=== PATIENT | female | born 1960 | race Caucasian/White ===

== ENCOUNTER 2023-04-09 08:50 | Emergency (ER) | payer OTHER, BC, SELFPAY ==
--- NOTE | ~2023-04-09 | XR_ITS ---
EXAMINATION: XR shoulder LT min 2V INDICATION: Left shoulder pain TECHNIQUE: Four views of the left shoulder are submitted. COMPARISON: None FINDINGS: Normal alignment. No fracture. There is moderate osteoarthritis of the acromioclavicular an d glenohumeral joints. Soft tissues are unremarkable. IMPRESSION: 1. No acute osseous abnormality. Reviewed, dictated and finalized at location B.
[2023-04-09 09:05] VITALS: BP 108/64; PULSE 79; RESP 18; TEMP 36.7; O2SAT 98
--- NOTE | 2023-04-09 09:17 | ED.UPPEXIN ---
HPI - Extremity Injury (Upper) General Chief Complaint: Extremity Injury, Upper Stated Complaint: Lt Shoulder Pain Time Seen by Provider: 04/09/23 09:18 Source: patient, family, RN notes reviewed and old records reviewed Mode of arrival: ambulatory Limitations: no limitations History of Present Illness HPI narrative: 62-year-old female accompanied by daughter with complaints of walking in [place] work and she fell injuring her left shoulder yesterday. Patient has decreased range of motion to her left shoulder and arm with pain with attempted movement of left arm. Patient reports that she has used ice to her left shoulder and also has taken some Ibuprofen for her discomfort. Patient reports no tingling or numbness to her left arm or hand, strong radial and brachial pulse to left arm. MD complaint: injury to: left and shoulder Onset (ago): day(s) (occurred yesterday) Severity scale (1-10): 6 Treatments prior to arrival: cold therapy and NSAIDS Related Data Allergies Allergy/AdvReac Type Severity Reaction Status Date / Time No Known Allergies Allergy Verified 04/09/23 09:09 Review of Systems Review of Systems: CONSTITUTIONAL: Denies fever, chills, or sweats. EYES: Denies visual changes, redness, or discharge. ENT: Denies rhinorrhea, congestion, sore throat, or otalgia. CARDIOVASCULAR: Denies chest pain, palpitations, or edema. RESPIRATORY: Denies cough or dyspnea. GASTROINTESTINAL: Denies abdominal pain, nausea, vomiting, or diarrhea. GENITOURINARY: Denies dysuria or hematuria. SKIN: Denies rash or itching. MUSCULOSKELETAL: Denies back pain,positive for left shoulder joint pain, or myalgia. NEUROLOGIC: Denies headache, numbness, or weakness. PSYCHIATRIC: Denies anxiety or depression. All systems reviewed & are unremarkable except as noted in HPI and below PMFSH Past Medical History Medical History (Updated 04/10/23 @ 18:50 by Sara Jenkins NP) Tobacco abuse Surgical History Surgical History (Updated 04/10/23 @ 18:47 by Sara Jenkins NP) H/O: hysterectomy History of strabismus surgery Previous section x3 S/p bilateral carpal tunnel release Social History Social History (Updated 04/10/23 @ 18:50 by Sara Jenkins NP) Smoking packs per day: 1 Smoking cigarettes per day: 20.0 Years smoked: 50 Smoking pack-years: 50.00 Smoking status: Current every day smoker Tobacco type: cigarettes Alcohol intake: unknown Substance use type: does not use Gender identity (if verbalized by the patient): Female Comments At time of signature, agree with nursing past medical, surgical, social and family history. There is no relevant family history pertinent to the presenting complaint Exam Narrative: GENERAL: Well-appearing, well-nourished, and in no acute distress. HEAD: Normocephalic, atraumatic. EYES: PERRLA and EOMI. ENT: Nares clear, no rhinorrhea or epistaxis. Mucous membranes moist.TM's normal with good light reflex, throat pink with no swelling noted. NECK: Supple.no lymphadenopathy CHEST: Clear to auscultation. No respiratory distress.SAO2 98% on room air HEART: Regular rate and rhythm. No murmur heard. Normal peripheral pulses. ABDOMEN: Soft, nontender, nondistended, normal active bowel sounds. EXTREMITIES: Normal range of motion. No edema.Exception noted to left shoulder with decreased mobility and inability to raise arm upward on own power. Pulses strong left arm with no left arm or hand tingling or numbness, nail beds of left fingers have brisk capillary refill. SKIN: Warm, dry, no rash. NEURO: No focal deficits. Alert and oriented x3. Course Course Emergency Course: Patient is aware of diagnosis, understands and agrees to treatment plan.? Anticipatory guidance given.? Patient agrees to follow-up as directed and is aware of reasons to seek care at the emergency department. Portions of this record may have been created with voice recognition software Level of Care: Ex
== END 2023-04-09 10:00 | disposition home or self-care (01) ==
PROVIDERS: Emergency Provider Registered Nurse
DX: M25.512 Pain in left shoulder (principal); F17.210 Nicotine dependence, cigarettes, uncomplicated
CPT/HCPCS: 73030; 99213; G0463

== ENCOUNTER 2023-10-19 09:48 | Emergency (ER) | payer BC, SELFPAY ==
[2023-10-19 10:06] VITALS: BP 140/77; PULSE 100; RESP 18; TEMP 36.9; O2SAT 100
--- NOTE | 2023-10-19 10:06 | ED.URI ---
HPI - URI/Sore Throat General Chief Complaint: Upper Respiratory Infection Stated Complaint: Fever, Feeling Ill History of Present Illness HPI Narrative: 63-year-old female presented for complaint headache, sore throat, headache, nasal congestion and runny nose. Onset last night. Endorses subjective fever. Not taking anything for symptoms. Denies sob, wheezing, n/v/d. Smokes 1.5ppd. Related Data Allergies Allergy/AdvReac Type Severity Reaction Status Date / Time No Known Allergies Allergy Verified 10/19/23 10:02 Review of Systems Review of Systems: CONSTITUTIONAL: Denies body aches, fever, chills, or sweats. EYES: Denies visual changes, redness, or discharge. ENT: reports rhinorrhea, congestion, denies otalgia. CARDIOVASCULAR: Denies chest pain, palpitations, or edema. RESPIRATORY: reports cough Denies dyspnea. GASTROINTESTINAL: Denies abdominal pain, nausea, vomiting, or diarrhea. SKIN: Denies rash, itching, or wounds. MUSCULOSKELETAL: Denies back pain, joint pain, or myalgia. NEUROLOGIC: reports headache PMFSH Past Medical History Medical History Tobacco abuse Surgical History Surgical History H/O: hysterectomy History of strabismus surgery Previous section x3 S/p bilateral carpal tunnel release Social History Social History Smoking packs per day: 1 Smoking cigarettes per day: 20.0 Years smoked: 50 Smoking pack-years: 50.00 Smoking status: Current every day smoker Tobacco type: cigarettes Alcohol intake: unknown Substance use type: does not use Gender identity (if verbalized by the patient): Female Exam Narrative: GENERAL: mildly Ill-appearing, no acute distress. EYES: conjunctivae clear ENT: Mucous membranes moist. TM unable to visualize due to excess cerumen bilaterally; no tragal tenderness. Oropharynx erythematous without lesions. Tonsils not enlarged and without exudate. No drooling, no hoarseness, no trismus, uvula midline. No tripod positioning, hot potato voice, or soft palate swelling. NECK: Supple. No lymphadenopathy CHEST: Clear to auscultation, breath sounds equal. No respiratory distress, speaks in full sentences. HEART: Regular rate and rhythm. No murmur heard. SKIN: Warm, dry, no rash. NEURO: Alert and oriented x3. Course Course Emergency Course: Patient is aware of diagnosis, understands and agrees to treatment plan. Anticipatory guidance given. Patient agrees to follow-up as directed and is aware of reasons to seek care at the emergency department. Portions of this record may have been created with voice recognition software Level of Care: Express Care Visit Vital Signs Vital signs: Vital Signs Temperature 98.4 F 10/19/23 10:06 Pulse Rate 100 10/19/23 10:06 Respiratory Rate 18 10/19/23 10:06 Blood Pressure 140/77 10/19/23 10:06 Pulse Oximetry 100 10/19/23 10:06 Oxygen Delivery Room Air 10/19/23 10:06 Temperature 98.4 F 10/19/23 10:06 Pulse Rate 100 10/19/23 10:06 Respiratory Rate 18 10/19/23 10:06 Blood Pressure 140/77 10/19/23 10:06 Pulse Oximetry 100 10/19/23 10:06 Oxygen Delivery Room Air 10/19/23 10:06 MDM - URI/Sore Throat MDM Narrative Medical decision making narrative: Neg flu covid strep result reviewed with pt. Advised retesting for covid. Advise supportive treatments and s/s to go to the ER. Patient is appropriate for outpatient treatment and follow-up. Differential Diagnosis Differential diagnosis: Likely upper respiratory infection, viral infection and pharyngitis Lab Data Labs: Lab Results 10/19/23 Range/Units 10:15 POC SARS CoV-2 Ag Negative (Negative) Influenza A Screen Negative Reference Range: Negative Influenza B Sc
== END 2023-10-19 10:36 | disposition home or self-care (01) ==
PROVIDERS: Emergency Provider Nurse Practitioner Family
DX: J06.9 Acute upper respiratory infection, unspecified (principal); F17.210 Nicotine dependence, cigarettes, uncomplicated; Z20.822 Contact with and (suspected) exposure to COVID-19
CPT/HCPCS: 87081; 87426; 87804; 87880; 99213; G0463

== ENCOUNTER 2024-06-27 09:35 | Outpatient (CLI) | payer MEDICARE, MEDICAID, SELFPAY ==
[2024-06-27 10:50] LABS: Basophils Percent Auto 0.3 % (0.2-1.2); Eosinophils Absolute Auto 0.1 K/mm3 (0-0.3); Eosinophils Percent Auto 0.9 % (0-4.4); Hematocrit 47.2 % (37.0-47.0); Hemoglobin 15.8 g/dL (12.0-15.0); Immature Granulocyte Absolute 0.01 K/mm3 (0.00-0.031); Immature Granulocyte Percent A 0.2 % (0-0.5); Lymphocytes Absolute Auto 1.73 K/mm3 (0.9-3.2); Lymphocytes Percent Auto 29.7 % (18.3-44.2); Mean Corpuscular HGB Conc 33.5 g/dl (32-36); Mean Corpuscular Hemoglobin 33.3 pg (26-34); Mean Corpuscular Volume 99.4 fl (80-100); Mean Platelet Volume 11.3 fl (7.4-10.4); Monocytes Absolute Auto 0.4 K/mm3 (0.1-0.6); Monocytes Percent Auto 6.2 % (2.6-8.5); Neutrophils Absolute Auto 3.7 K/mm3 (1.3-6.7); Neutrophils Percent Auto 62.7 % (45.5-73.1); Platelet Count Result 193 k/mm3 (150-375); Red Blood Count 4.75 M/mm3 (4.2-5.4); Red Cell Distribution Width 12.1 % (11.5-14.5); White Blood Count 5.8 K/mm3 (4.5-10.0)
[2024-06-27 11:04] LABS: Add Urine Microscopic? YES; Appearance Urine Clear (Clear); Bacteria Urine None Seen /hpf; Bilirubin Urine Negative (Negative); Blood Urine Negative (Negative); Color Urine Yellow (Yellow); Glucose Urine UA Negative (Negative); Ketones Urine Negative (Negative); Leukocyte Esterase Ur Trace LEU/UL (Negative); Nitrate Urine Negative (Negative); Non Pathogenic Casts 0-2; Protein Urine Negative (Negative); RBC Urine 0-2 /hpf (0-2); Specific Grav Ur 1.012 (1.001-1.035); Squamous Epithelial Cell Urine None Seen /hpf (Few); Urobilinogen Urine 0.2 mg/dL (<2.0); WBC Urine 0-5 /hpf (0-3); pH Urine 5.5 (5.0-9.0)
[2024-06-27 11:04] LABS: Alanine Aminotransferase 22 U/L (6-35); Albumin Level 4.4 g/dL (3.5-5.1); Alkaline Phosphatase 81 U/L (38-126); Anion Gap 7 mmol/L (4-12); Aspartate Amino Transferase 26 U/L (14-36); Bilirubin,Total 0.6 mg/dL (0.2-1.3); Blood Urea Nitrogen 16 mg/dL (7-17); Calcium 8.9 mg/dL (8.4-10.2); Carbon Dioxide 29 mmol/L (22-30); Chloride 101 mmol/L (98-107); Cholesterol 244 mg/dL (0-200); Estimated Glomerular Filt Rate > 60; Glucose 101 mg/dL (65-110); HDL Direct 72 mg/dL; Potassium 4.6 mmol/L (3.4-5.0); Sodium 137 mmol/L (137-145); Triglycerides 113 mg/dL (<150)
[2024-06-27 11:14] LABS: LDL Cholesterol Direct 134 mg/dL
[2024-06-27 11:31] LABS: Hemoglobin A1C 5.8 % (<5.7)
[2024-06-27 11:58] LABS: Hepatitis C Virus Antibody Negative (Negative)
[2024-06-27 12:09] LABS: Folic Acid 14.9 ng/mL (2.76->20)
[2024-06-28 11:45] LABS: Rapid Plasma Reagin Non-Reactive (NonReactive)
[2024-06-29 16:24] LABS: NIL 0.01 IU/mL; Quantiferon TB Plus, 1T NEGATIVE (NEGATIVE); TB1-NIL 0.09 IU/mL
== END 2024-06-27 09:36 | disposition home or self-care (01) ==
PROVIDERS: PCP Internal Medicine; Visit Provider Internal Medicine
DX: E88.810 Metabolic syndrome (principal); R42 Dizziness and giddiness; R53.83 Other fatigue; F19.90 Other psychoactive substance use, unspecified, uncomplicated; Z20.9 Contact with and (suspected) exposure to unspecified communicable disease; Z12.11 Encounter for screening for malignant neoplasm of colon
CPT/HCPCS: 36415; 80053; 80061; 81001; 82607; 82746; 83036; 84443; 85025; 86480; 86592; 86803

== ENCOUNTER 2024-06-30 08:00 | Outpatient (CLI) | payer MEDICARE, MEDICAID, SELFPAY ==
--- NOTE | ~2024-06-30 | MM_ITS ---
EXAMINATION: MM screening ya BI w brody HISTORY: Screening mammogram, family history of breast cancer in her mother. TECHNIQUE: Craniocaudal and mediolateral oblique 3-D tomosynthesis images were obtained and synthetic 2-D images were generated. CAD analysis was submitted and interpreted. COMPARISON: No prior mammogram is available for comparison at this institution. BREAST PARENCHYMAL COMPOSITION:Not Dense. There are scattered areas of fibroglandular density. FINDINGS: No suspicious mass, calcification, or architectural distortion are identified in either yemi ast to suggest malignancy. There has been no suspicious interval change. IMPRESSION: No mammographic evidence of malignancy. Recommend routine screening mammography in one year. BI-RADS Category 1: Negative Reviewed, dictated and finalized at location .
--- NOTE | ~2024-06-30 | CT_ITS ---
CT Scan of the Chest without Contrast: Clinical Indication: Lung cancer screening, nicotine dependence Technique: Contiguous sections were acquired throughout the chest without intravenous contrast. Dose reduction technique was used on this scan by utilizing automated exposure control and iterative recon struction technique. The dose-length product (DLP) was 131.02 mGy-cm. Findings: There is no evidence of any significant mediastinal, hilar or axillary lymphadenopathy. The mediastin al soft tissues appear normal. There is no evidence of pleural or pericardial effusion. Suspected 4 mm nodule right lung apex with possible focal central cavitation. There is somewhat amorp hous groundglass opacity peripherally at the left lung apex posteriorly (axial image 31). Additional focal irregular nodule showing groundglass opacity noted peripherally in the left upper lobe (axial i mage 45). There is a 2.4 x 0.6 cm nodule with probable focal cavitation or cystic bronchiectasis in t he anteromedial right upper lobe (axial image 59). Probable moderate to advanced emphysema. Images through the upper abdomen reveal 2.2 cm low-density left adrenal nodule, compatible with adeno ma. Impression: Lung RADS 4B: Very suspicious. PET/CT and/or tissue sampling should be considered, especially for the largest lesion in the anteromedial right upper lobe, which is indeterminate. Moderate to advanced emphysema. Left adrenal adenoma. Reviewed, dictated and finalized at location . Impression: Lung RADS 4B: Very suspicious. PET/CT and/or tissue sampling should be consider ed, especially for the largest lesion in the anteromedial right upper lobe, whi ch is indeterminate. Moderate to advanced emphysema. Left adrenal adenoma.
== END 2024-06-30 08:01 | disposition home or self-care (01) ==
LOC: ANHIMG 08:03
PROVIDERS: PCP Internal Medicine; Visit Provider Internal Medicine
DX: Z12.2 Encounter for screening for malignant neoplasm of respiratory organs (principal); F17.210 Nicotine dependence, cigarettes, uncomplicated; J43.9 Emphysema, unspecified; D35.02 Benign neoplasm of left adrenal gland; Z12.31 Encounter for screening mammogram for malignant neoplasm of breast
CPT/HCPCS: 71271; 77063; 77067

== ENCOUNTER 2024-08-01 09:17 | Outpatient (CLI) | payer MEDICARE, MEDICAID, SELFPAY ==
--- NOTE | ~2024-08-01 | PE_ITS ---
EXAMINATION: PET skull to mid thigh DATE: 08/01/2024 11:06 INDICATION: Lung nodules. TECHNIQUE: Blood glucose level was 112 mg/dL. 9.785 mCi of 18-fluorodeoxyglucose (18-FDG) was adminis tered i.v. Low dose computed tomography (CT) images were acquired from the base of the brain to the p roximal thighs for attenuation correction and anatomic localization. Automated exposure control was e mployed. Dose-length product (DLP) was 980 mGy-cm. Positron emission tomography (PET) images were acq uired in the same distribution. COMPARISON: Chest CT 06/30/2024 FINDINGS: Head/neck: There are no pathologically enlarged lymph nodes. Chest: There is mild emphysema. There is a 6 mm nodule in right upper lobe. There is a 2.7 x 1.6 cm n odule with maximum SUV of 3.2 in right upper lobe. There is a 7 mm nodule without increased activity in left upper lobe. There are a few scattered nodules in the lungs measuring less than 6 mm. No pleur al effusion. The heart size is normal. There are coronary artery calcifications. No pericardial effus ion. There are no pathologically enlarged lymph nodes. Abdomen/pelvis/proximal thighs: The liver, spleen, pancreas, and right adrenal gland are normal. Ther e is a 2.2 cm mass measuring low attenuation without increased activity in left adrenal gland, consis tent with an adenoma. There is a 1 mm stone in right kidney. There is a 3 mm stone in left kidney. Th ere are no dilated loops of bowel. The appendix is not visualized. There are no pathologically enlarg ed lymph nodes. There is no free intraperitoneal fluid. There is no osseous malignancy. IMPRESSION: 1. 2.7 x 1.6 cm nodule in right lung upper lobe with increased activity, consistent with primary bron chogenic carcinoma. CT-guided biopsy is recommended. 2. Pulmonary nodules measuring up to 7 mm, probably benign. Noncontrast low-dose chest CT is recommen ded in 6 months. Reviewed, dictated and finalized at location A. IMPRESSION: 1. 2.7 x 1.6 cm nodule in right lung upper lobe with increased activity, consis tent with primary bronchogenic carcinoma. CT-guided biopsy is recommended. 2. Pulmonary nodules measuring up to 7 mm, probably benign. Noncontrast low-dos e chest CT is recommended in 6 months.
[2024-08-01 09:34] LABS: Glucose Point of Care 112 mg/dl (65-105)
== END 2024-08-01 09:18 | disposition home or self-care (01) ==
LOC: ANHIMG 09:19
PROVIDERS: PCP Internal Medicine; Visit Provider Internal Medicine
DX: R91.8 Other nonspecific abnormal finding of lung field (principal)
CPT/HCPCS: 78815; A9552

== ENCOUNTER 2024-08-07 10:02 | Outpatient (CLI) | payer MEDICARE, MEDICAID, SELFPAY ==
--- NOTE | 2024-08-07 12:31 | WPDPFTINT ---
PFT Procedure Performed PFT Procedure Performed Plethysmography (Lung Vol) Diffusing Cap (DLCO) Flow Vol Loop Spirometry w/o Bronchodil PFT Interpretation This is a pulmonary function test with spirometry, plethysmography and diffusing capacity. The test was performed and results interpreted in accordance with the 2019 and 2005 ATS/ERS Task Force guidelines respectively using the Global Lung Function Initiative-2012 reference equations. Patient demonstrated good effort and cooperation. Reproducibility criteria were met. The quality of the spirometry maneuver was Grade B. Findings: Spirometry: There is decreased maximal expiratory airflow at all lung volumes with a concave expiratory flow tracing. The contour the inspiratory flow tracing is normal. The FVC is 2.46 L, 86% predicted. The FEV1 is 1.53 L, 68% predicted. The FEV1: FVC ratio 62%. Plethysmography: Total lung capacity is 6.05 L, 123% predicted. Functional residual capacity is 4.18 L, 150% predicted. The residual volume is 3.54 L, 172% predicted. The residual volume: Total lung capacity ratio is 59%. Diffusing capacity: The diffusing capacity unadjusted for hemoglobin and carboxyhemoglobin is 18.1, 88% predicted. The diffusing capacity adjusted for alveolar volume is 4.11, 94% predicted. Impression: There is a moderate obstructive abnormality. The increase in residual volume to total lung volume ratio is consistent with hyperinflation from an obstructive abnormality. The diffusing capacity is normal. There are no prior studies for comparison
== END 2024-08-07 10:03 | disposition home or self-care (01) ==
LOC: ANHPFT 10:03
PROVIDERS: PCP Internal Medicine; Visit Provider Internal Medicine
DX: R91.8 Other nonspecific abnormal finding of lung field (principal); R94.2 Abnormal results of pulmonary function studies
CPT/HCPCS: 94375; 94726; 94729

== ENCOUNTER 2024-08-11 16:13 | Inpatient (IN) | payer MEDICARE, MEDICAID, SELFPAY ==
--- NOTE | 2024-08-08 08:14 | PC.NURSE ---
Pre Radiology instructions Report to the outpatient gina rice on date __08/11/24___ at time ____9:00am___ for procedure Time: _11:00am___ YOU MAY BE MONITORED AT HOSPITAL FOR UP TO 4 HOURS AFTER YOUR PROCEDURE. A visitor will be allowed to accompany the patient into the hospital. You and your visitor will be asked to self-screen and do not enter if you have any COVID symptoms. A mask is OPTIONAL within the hospital. Patients are to have no food or drink 6 hours prior to procedure time Driving will be restricted after the procedure, you must have a person to drive you home. Labs will be drawn in preop area and once reviewed, you will be taken to radiology area for procedure. When the procedure is completed, you will be taken to outpatient where you will be monitored for several hours. You may have one visitor in this area. Other than holding anti-coagulants, patient may take other medication(s) as scheduled. Prior to your appointment date patients are instructed to hold anti-coagulants after discussing with ordering provider to stop. If unable to discontinue anti-coagulants please notify radiologist. ? No aspirin or warfarin (Coumadin) for 7 days prior to the procedure. ? No clopidogrel (Plavix), ticagrelor (Brilinta), prasugrel (Effient) or dabigatran (Pradaxa) for 5 days prior to the procedure. ? No rivaroxaban (Xarelto), apixaban (Eliquis), dipyridamole (Aggrenox or Persantine) or cilostazol (Pletal) for 2 days prior to the procedure. Medications to discontinue per physician: ___NONE Date to take last dose: Please leave all valuables, including medications, at home the day of procedure. The hospital will not accept responsibility for valuables. Wear comfortable, loose fitting clothing.? Follow any additional instructions given to you from ordering provider. Telephone instructions given to ____PATIENT'S SON and asked if any additional questions and then verbalized understanding. Patient advised to call scheduling provider office or registration scheduling [phone] if any additional questions.
[2024-08-08 08:17] VITALS: BMI 29.1
[2024-08-11] VITALS (20 sets, daily range): BP systolic 104–138; BP diastolic 54–84; PULSE 69–99; RESP 14–20; TEMP 35.7–36.4; O2SAT 93–100
--- NOTE | ~2024-08-11 | XR_ITS ---
EXAMINATION: XR chest 1V portable DATE: 08/13/2024 08:00 INDICATION: Follow-up right pneumothorax post chest tube placement TECHNIQUE: frontal view of the chest was obtained. COMPARISON: Chest radiograph dated 08/12/2024 FINDINGS: Interval placement of a small bore pigtail right chest tube with loops formed over the right apex. Th e prior right pneumothorax has resolved. No focal airspace opacities, pulmonary edema, pleural effusi on or left pneumothorax. The cardiomediastinal silhouette is normal. IMPRESSION: 1. Resolution of prior right pneumothorax post right chest tube placement. Reviewed, dictated and finalized at location A. SCAPE ARCHITECT
--- NOTE | ~2024-08-11 | CT_ITS ---
EXAMINATION: CT biopsy lung w/imaging DATE: 08/11/2024 12:33 INDICATION: Right upper lobe mass with abnormal PET/CT TECHNIQUE: The procedure including the risks and benefits was discussed with the patient. Risks discu ssed included infection, approximately 1/20 risk of symptomatic hemorrhage beyond mild hemoptysis, ap proximately 1/3 risk of pneumothorax, and approximately 1/10 risk of pneumothorax severe enough to wa rrant chest tube placement. The patient understood the risks and agreed to proceed. The patient was p laced supine. The skin overlying the right parasternal anterior chest was prepped and draped in ster ile fashion. Anesthetic was administered with 1% lidocaine subcutaneously. A 19 gauge outer needle was advanced under CT guidance to the lesion of interest. A 20 gauge core biopsy needle was then used to obtain 4 core biopsy specimens. The needle was removed and the entry site was cleaned and dressed . There were no immediate complications. The dose-length product was 154.03 mGy-cm. FINDINGS: CT images demonstrate the outer needle tip adjacent to the previous noted 2.7 x 1.6 cm subs olid nodule in the anterior segment of the right upper lobe. IMPRESSION: 1. Successful CT-guided biopsy of the 2.7 x 1.6 cm FDG avid subsolid nodule in the anterior segment o f the right upper lobe. Reviewed, dictated and finalized at location A. IMPRESSION: 1. Successful CT-guided biopsy of the 2.7 x 1.6 cm FDG avid subsolid nodule in the anterior segment of the right upper lobe.
--- NOTE | ~2024-08-11 | XR_ITS ---
XR chest 1V portable DATE: 08/13/2024 16:11 INDICATION: Right chest tube on waterseal TECHNIQUE: Portable upright AP chest on 08/13/2024 1608 hours COMPARISON: 08/13/2024 portable AP chest at 0756 hours FINDINGS: Right pigtail chest catheter is unchanged in position since earlier today. There is slight if any right pneumothorax. Patchy infiltrate in the right mid and particularly right lower lung zone and to a lesser extent left lower lung zone. No pleural effusion is evident. Normal heart size. No hilar or mediastinal enlargement is noted. Diffuse osteopenia. IMPRESSION: Right chest tube; slight if any right pneumothorax Reviewed, dictated and finalized at location A. [employer]
--- NOTE | ~2024-08-11 | XR_ITS ---
EXAMINATION: XR chest 1V portable DATE: 08/11/2024 13:40 INDICATION: Right lung nodule status post percutaneous biopsy. TECHNIQUE: A single frontal view of the chest was obtained. COMPARISON: Chest single view at 12:27 PM FINDINGS: There are lucencies in the lungs, consistent with emphysema. There is a 5 mm nodule in left upper lobe, likely benign. There is no pneumonia, pleural effusion, or pneumothorax. The heart size is normal. IMPRESSION: 1. Emphysema. Reviewed, dictated and finalized at location B. IMPRESSION: 1. Emphysema.
--- NOTE | ~2024-08-11 | XR_ITS ---
EXAMINATION: XR chest 2V DATE: 08/14/2024 16:06 INDICATION: Right pneumothorax. Chest tube removal. TECHNIQUE: Frontal and lateral views of the chest were obtained. COMPARISON: Chest single view 08/14/2024 at 8:12 AM FINDINGS: There is no pneumonia, pleural effusion, or pneumothorax. The heart size is normal. IMPRESSION: 1. No pneumothorax. Reviewed, dictated and finalized at location A. [employer] IMPRESSION: 1. No pneumothorax.
--- NOTE | ~2024-08-11 | CT_ITS ---
EXAMINATION: CT chest tube placement w img DATE: 08/12/2024 11:15 INDICATION: Echogenic right pneumothorax post percutaneous lung biopsy TECHNIQUE: The procedure including the risks and benefits was discussed with the patient. Risks discu ssed included bleeding, infection and allergic reaction. The patient understood the risks and benefit s and agreed to proceed. The patient was confirmed to be receiving appropriate antibiotic coverage. The skin overlying the right infraclavicular anterior chest wall was prepped and draped in usual ster ile fashion. Anesthetic was administered with 1% lidocaine subcutaneously. Utilizing CT guidance and 18-gauge needle was advanced into the pneumothorax. A J-wire was advanced through the needle with po sition overlying the right apex confirmed by CT. Utilizing Seldinger technique the needle was removed over the wire and the tract serially dilated to 8 Romanian. A 0.5 Romanian pigtail catheter was inserted over the wire with position confirmed by CT. The distal loop was formed and locked and the wire and metal stiffener were removed. The mass was manually aspirated from the pneumothorax with complete dec ompression of the pneumothorax confirmed on CT. The catheter was sutured to the skin and a sterile dr essing including Vaseline impregnated gauze was applied. The catheter was attached to suction drainag e by the patient's nurse accompanied the patient back to her. There were no immediate complications. The dose-length product was 133.74 mGy-cm. FINDINGS: CT images demonstrate the pigtail catheter with loops formed along the anteromedial right a pex with only trace residual pneumothorax. On the radio announcer image the biopsied nodule opacity can be seen in the intersegment right upper lobe. There is mild emphysema. IMPRESSION: 1. Successful CT-guided right apical chest tube placement with essentially complete decompression of the prior right pneumothorax. 2. The catheter will be managed by Dr. Miranda. Reviewed, dictated and finalized at location A. IMPRESSION: 1. Successful CT-guided right apical chest tube placement with essentially comp lete decompression of the prior right pneumothorax. 2. The catheter will be managed by Dr. Miranda.
--- NOTE | ~2024-08-11 | XR_ITS ---
EXAMINATION: XR chest 1V DATE: 08/11/2024 12:31 INDICATION: Status post right lung percutaneous biopsy TECHNIQUE: frontal view of the chest was obtained. COMPARISON: Chest CT dated 06/30/2024 FINDINGS: Lungs are clear with no focal airspace opacities, pulmonary edema, pleural effusion or pneumothorax. The small biopsied right upper lobe nodule is likely obscured by the right hilum. The cardiomediastin al silhouette is normal. Moderate scattered degenerative skeletal changes in the spine and at the suzanne ulders. IMPRESSION: 1. No pneumothorax or other acute cardiopulmonary disease post percutaneous biopsy of a right upper l obe nodule which is likely superimposed over the hilum. Reviewed, dictated and finalized at location A. IMPRESSION: 1. No pneumothorax or other acute cardiopulmonary disease post percutaneous bio psy of a right upper lobe nodule which is likely superimposed over the hilum.
--- NOTE | ~2024-08-11 | XR_ITS ---
EXAMINATION: XR chest 1V portable DATE: 08/11/2024 15:36 INDICATION: Right lung nodule status post percutaneous biopsy. TECHNIQUE: A single frontal view of the chest was obtained. COMPARISON: Chest single view at 1:36 PM FINDINGS: There is no pneumonia or pleural effusion. There is a small right pneumothorax. The heart s ize is normal. IMPRESSION: 1. New small right pneumothorax. I called this result to Dr. Barahona. Reviewed, dictated and finalized at location B.
--- NOTE | ~2024-08-11 | XR_ITS ---
XR chest 1V portable Ordering provider: Pb Gonzalez MD History: 64 years Female with . Follow up right chest tube. . Comparison: August 13, 2024 FINDINGS: MEDIASTINUM: The cardiac silhouette is not enlarged. LUNGS: No effusions. Tiny right apical pneumothorax is noted. Minimal opacification in the right lowe r lobe is seen unchanged from previous examination. Right chest tube is noted unchanged. OTHER: No free air under the diaphragm. IMPRESSION: No change from previous examination. Reviewed, dictated and finalized at location A. OL [employer]PERINTEND[employer]
--- NOTE | ~2024-08-11 | XR_ITS ---
EXAMINATION: XR chest 1V portable DATE: 08/12/2024 08:15 INDICATION: Pneumothorax TECHNIQUE: frontal view of the chest was obtained. COMPARISON: Chest radiograph dated 08/11/2024 FINDINGS: Interval increase in size of a now moderate-sized right pneumothorax. No airspace opacities, pulmonar y edema, pleural effusion or left-sided pneumothorax. Heart size is normal. IMPRESSION: 1. Progressive enlargement of a now moderate-sized right pneumothorax. No tachypnea with oxygen satur ation remaining 94%. CT-guided chest tube placement is planned. Reviewed, dictated and finalized at location A. IMPRESSION: 1. Progressive enlargement of a now moderate-sized right pneumothorax. No tachy pnea with oxygen saturation remaining 94%. CT-guided chest tube placement is pl anned.
[2024-08-11 09:55] LABS: Mean Platelet Volume 10.9 fl (7.4-10.4); Platelet Count Result 196 k/mm3 (150-375)
[2024-08-11 10:15] LABS: INR 1.1
[2024-08-11] MEDS: ACETAMINOPHEN 500 MG TABLET 1000 MG PO (13:30)
--- NOTE | 2024-08-11 16:39 | PM.IMHP ---
H&P: HPI History of Present Illness Date/Time: 08/11/24 16:39 Chief Complaint: Pneumothorax Narrative: 64 y/o F presented here for a lung biopsy with PMH of tobacco abuse and COPD. The patient presented here for a CT-guided biopsy of a right upper lobe lung mass today, 08/11. Postprocedure the patient developed a new small to right hemothorax. She currently denying shortness of breath, cough, rib or chest wall pain. Suspected 4 mm nodule right lung apex with possible focal central cavitation was 1st noted on CT of the lungs on 06/30/2024. She is formerly an every day smoker, 2 ppd x 50+ years with cessation on Saturday 08/04. She has no personal history of cancer. Family history of cancer - mom (breast), aunt (breast), cousins (breast), uncle (lung cancer), grandmother (pancreatic). Initial VS at presentation: 97.5? F, HR 90, RR 14, 138/75, and 98% on RA. Review of Systems Review of Systems: All systems reviewed & are unremarkable except as noted in HPI and below PMFSH Past Medical History Medical History (Updated 08/11/24 @ 22:00 by Sarah Beth Sanabria APRN) COPD (chronic obstructive pulmonary disease) reports she has previously been told this diagnosis Tobacco abuse Surgical History Surgical History H/O: hysterectomy History of strabismus surgery Previous section x3 S/p bilateral carpal tunnel release Social History Social History Smoking packs per day: 2 Smoking cigarettes per day: 40.0 Years smoked: 54 Smoking pack-years: 108.00 Smoking status: Former smoker Tobacco type: cigarettes Alcohol intake: never Substance use: never Substance use type: does not use Do You Feel Safe in your Home?: Yes Lack of Transportation: No Lack of Food: Never True Current Housing: I Have Housing Concerned About Future Housing: No Difficulty Paying Gas/Electric Bills: No Difficulty Paying for Meds: No Currently Unemployed: No Education: Grade School Difficulty w/ Childcare or Family Care: No Gender identity (if verbalized by the patient): Female Spiritual care concerns: No Meds Home Medications and Allergies Home Medications Medication Instructions Recorded Confirmed Type ibuprofen 200 mg tablet 400 mg PO Q6H PRN mild pain or 08/11/24 08/11/24 History headache Allergies Allergy/AdvReac Type Severity Reaction Status Date / Time No Known Allergies Allergy Verified 08/08/24 08:10 Vital Signs Vital Signs - 24 hr 08/11/24 09:10 08/11/24 12:30 08/11/24 12:45 Temperature 97.5 F L Pulse Rate 90 70 80 Respiratory Rate 14 16 16 Blood Pressure 138/75 119/80 130/67 Pulse Oximetry 98 100 100 Oxygen Delivery Room Air Nasal Cannula Nasal Cannula Oxygen Flow Rate 2 2 08/11/24 13:00 08/11/24 13:15 08/11/24 13:30 Temperature Pulse Rate 76 74 76 Respiratory Rate 16 14 16 Blood Pressure 124/64 118/71 126/63 Pulse Oximetry 100 100 100 Oxygen Delivery Nasal Cannula Nasal Cannula Room Air Oxygen Flow Rate 2 2 08/11/24 14:00 08/11/24 16:30 08/11/24 14:30 Temperature Pulse Rate 74 74 84 Respiratory Rate 16 16 16 Blood Pressure 105/62 110/68 111/84 Pulse Oximetry 96 96 93 Oxygen Delivery Room Air Room Air Room Air Oxygen Flow Rate 08/11/24 15:00 08/11/24 15:30 08/11/24 16:00 Temperature Pulse Rate 71 69 74 Respiratory Rate 16 14 16 Blood Pressure 115/66 118/69 107/65 Pulse Oximetry 98 95 97 Oxygen Delivery Room Air Room Air Room Air Oxygen Flow Rate Exam Narrative: diminished in right lower lobe. Poor air movement that is diffisue bilaterally with a faint exp wheeze. Const: General: comfortable and no acute distress Other: , female, nontoxic appearance HENMT: Face/Nose/Sinus: Normal nares present Mouth: Yes moist mucous membranes Eyes: General: appearance normal, both eyes and all related structures Sclera: sclerae normal Pupils: Equal, round and reactive pupils present EOM: EOMs intact bilaterally Resp: Other: No tachypnea or accessory muscle use. Diminished lung sounds throughout. Absent lung sounds to right base. Cardio: Rate: regular rate Rhythm: regular rhythm Other: S1-S2 present without murmur, rub, ectopy Skin: General skin exam: normal color and no rashes or lesions noted Wounds: no wounds Neuro: Speech: normal speech Motor exam (neuro): 5/5 motor strength present throughout Sensory Exam: normal sensation Other: Mild somnolence. A&O x4. Extrem: General: normal to inspection Psych: Mental Status: mental status grossly normal Affect: normal affect Other: Fair insight and judgment, pleasant H&P: Results Labs Labs: Short CBC 08/11/24 Range/Units 09:43 Plt Count 196 (150-375) k/mm3 Assessment and Plan Assessment and plan (1) Pneumothorax after biopsy: Code(s): J95.811 - Postprocedural pneumothorax Status: Acute Assessment and Plan: - CXR pre-procedure: Emphysema - CT guided biopsy: Successful CT-guided biopsy of the 2.7 x 1.6 cm FDG avid subsolid nodule in the anterior segment of the right upper lobe. - CXR post-procedure: New small right pneumothorax - spoke with Jun MCCANN, no current indication for chest tube - repeat CXR tomorrow - continuous pulse ox (2) COPD (chronic obstructive pulmonary disease): Qualifiers: COPD type: unspecified COPD Qualified Code(s): J44.9 - Chronic obstructive pulmonary disease, unspecified Code(s): J44.9 - Chronic obstructive pulmonary disease, unspecified Status: Acute Assessment and Plan: - has previously been told she likely has COPD, faint expiratory wheeze and poor air movement on exam - Nikolay p.r.n. Plan Diet: Regular GI Prophylaxis: Not currently indicated DVT Prophylaxis: SCDs Lines: Peripheral Code Status: Full code Quality VTE Prophylaxis VTE prophylaxis: mechanical ordered Hospitalist [facility] Advance Care Plan I have confirmed that the patient's Advanced Care Plan is present, code status is documented, or surrogate decision maker is listed in patient medical record.: Yes Medication Reconciliation I have utilized all available resources to obtain, update and review the patients current medications (includes all prescriptions, OTC, herbals, cannabis, and nutritional supplements).: Yes
--- NOTE | 2024-08-11 16:40 | ADMGEN ---
This patient, Cheyenne Serrato, was admitted to Medical Room 345-01. Patient/family oriented to hospital policies and general routines including ID bracelet, bed and alarms, visiting hours, pain management, procedures, bathroom and other care routines, personal items, smoking policy, room service/diet, and visiting hours. Information on how to activate the Rapid Response Team has been discussed. Patient/Family are encouraged to report perceived risks to care and to ask questions if they do not understand what they are told or what they should do.
[2024-08-11] MEDS: IPRATROPIUM 0.5 MG/ALBUTEROL SULFATE 2.5 MG AMPUL.NEB 3 ML INHALATION (21:56)
[2024-08-12] VITALS (7 sets, daily range): BP systolic 122–143; BP diastolic 59–74; PULSE 69–86; RESP 16–18; TEMP 36.1–36.7; O2SAT 94–96
--- NOTE | 2024-08-12 10:29 | PC.NURSE ---
Patient resting in bed. Breathing is normal. Continuous O2 in place. No complaints of pain. No needs at this time. All questions and concerns addressed.
--- NOTE | 2024-08-12 11:26 | PC.NURSE ---
1115 Patient arrives back to the floor after chest tube placement. Dressing CDI. Patient in good spirits. I was on the phone with her son when she arrived back to the unit. Chest tube attached to continuous suction at 80 per call from private household worker.
--- NOTE | 2024-08-12 15:03 | WPDCN ---
Assessment and Plan Assessment and plan (1) Pneumothorax after biopsy: Code(s): J95.811 - Postprocedural pneumothorax Status: Acute Assessment and Plan: Thoracostomy tube placed in Interventional Radiology. Pneumothorax on the right has resolved lungs re-expanded. Continue the right chest tube to 20cm of Pleur-evac suction through today. We will check chest x-ray tomorrow and if lungs still expanded fully then can consider placing the chest tube to water seal tomorrow. HPI Data of Consult Date/Time: 08/12/24 15:03 Requesting Physician: Francisco Carr MD Primary Care Provider: Ehsan Madrigal MD Consult Narrative Reason for consult: Right pneumothorax, status post right chest tube placement Narrative: Cheyenne Serrato is a 64 year old patient who has a long history of smoking was found have a right upper lobe lung lesion. She presented [facility] to have a CT-guided right lung biopsy performed in Radiology. That was successful however postprocedural chest x-ray showed a very small apical right pneumothorax. She was then retained in the hospital and observed overnight and she was asymptomatic. A repeat chest x-ray this morning showed extension of the right pneumothorax from a very small apical pneumothorax to an approximately 30% right pneumothorax without mediastinal shift. Given the enlargement of the pneumothorax the patient was then taken to the IR suite today where a CT guided right pigtail thoracostomy tube was placed by the radiologist. The pneumothorax compressed and there is no evidence of residual pneumothorax. Patient is now resting comfortably on the surgical floor with the right pigtail thoracostomy tube to 20cm of Pleur-evac suction. Review of Systems Review of Systems: The remainder of the review of systems to include constitutional, HEENT, cardiovascular, respiratory, GI, , integumentary, musculoskeletal, endocrine, immunologic, hematologic, psychiatric, and neurologic are all negative except for which is mentioned above in the HPI. [facility] Past Medical History Medical History (Updated 08/11/24 @ 22:00 by Sarah Beth Sanabria APRN) COPD (chronic obstructive pulmonary disease) reports she has previously been told this diagnosis Tobacco abuse Surgical History Surgical History H/O: hysterectomy History of strabismus surgery Previous section x3 S/p bilateral carpal tunnel release Social History Social History Smoking packs per day: 2 Smoking cigarettes per day: 40.0 Years smoked: 54 Smoking pack-years: 108.00 Smoking status: Former smoker Tobacco type: cigarettes Alcohol intake: never Substance use: never Substance use type: does not use Do You Feel Safe in your Home?: Yes Lack of Transportation: No Lack of Food: Never True Current Housing: I Have Housing Concerned About Future Housing: No Difficulty Paying Gas/Electric Bills: No Difficulty Paying for Meds: No Currently Unemployed: No Education: Grade School Difficulty w/ Childcare or Family Care: No Gender identity (if verbalized by the patient): Female Spiritual care concerns: No Meds Home Medications and Allergies Home Medications Medication Instructions Recorded Confirmed Type ibuprofen 200 mg tablet 400 mg PO Q6H PRN mild pain or 08/11/24 08/11/24 History headache Allergies Allergy/AdvReac Type Severity Reaction Status Date / Time No Known Allergies Allergy Verified 08/08/24 08:10 Vital Signs Vital Signs - 24 hr 08/11/24 16:30 08/11/24 15:30 08/11/24 16:00 Temperature Pulse Rate 74 69 74 Respiratory Rate 16 14 16 Blood Pressure 110/68 118/69 107/65 Pulse Oximetry 96 95 97 Oxygen Delivery Room Air Room Air Room Air Fraction of Inspired Oxygen 08/11/24 16:50 08/11/24 17:00 08/11/24 18:00 Temperature 35.7 C L Pulse Rate 78 91 Respiratory Rate 20 16 Blood Pressure 104/68 Pulse Oximetry 95 94 94 Oxygen Delivery Room Air Room Air Fraction of Inspired Oxygen 21 08/11/24 20:00 08/11/24 21:57 08/11/24 21:59 Temperature Pulse Rate 91 94 Respiratory Rate 16 18 Blood Pressure Pulse Oximetry 94 93 Oxygen Delivery Room Air Room Air Fraction of Inspired Oxygen 21 08/11/24 22:07 08/11/24 22:00 08/12/24 00:00 Temperature 36.4 C L 36.1 C L Pulse Rate 99 91 83 Respiratory Rate 18 16 16 Blood Pressure 110/54 L 122/59 L Pulse Oximetry 95 95 Oxygen Delivery Fraction of Inspired Oxygen 08/12/24 04:00 08/12/24 09:09 08/12/24 14:51 Temperature 36.1 C L 36.6 C 36.7 C Pulse Rate 84 69 86 Respiratory Rate 16 18 18 Blood Pressure 126/65 132/73 138/71 Pulse Oximetry 94 96 95 Oxygen Delivery Fraction of Inspired Oxygen Exam Const: General: comfortable and no acute distress HENMT: Ears: TM's normal bilaterally Face/Nose/Sinus: Normal nares present Mouth: Yes moist mucous membranes Eyes: General: appearance normal, both eyes and all related structures Sclera: sclerae normal Pupils: Equal, round and reactive pupils present EOM: EOMs intact bilaterally Neck: Neck: supple and no JVD Resp: Effort & Inspection: normal respiratory effort Auscultation: clear to auscultation bilaterally Other: Equal breath sounds bilaterally. Right pigtail thoracostomy tube in place. Dressing is dry. Essentially no drainage in the Pleur-evac chamber. Cardio: Rate: regular rate Rhythm: regular rhythm GI: GI Palp: Yes Soft to palpation, No Firmness to palpation present (GI), No Tenderness to palpation present (GI), No Guarding due to palpation present (GI) and No Hernia present Skin: General skin exam: normal color and no rashes or lesions noted Neuro: General: gait normal Speech: normal speech Motor exam (neuro): 5/5 motor strength present throughout and Motor abnormalites present Sensory Exam: normal sensation Extrem: General: normal to inspection Psych: Mental Status: mental status grossly normal Affect: normal affect Results Labs 08/11/24 09:43
--- NOTE | 2024-08-12 18:21 | PM.IMPN ---
Progress Note: A&P Assessment and Plan (1) Pneumothorax after biopsy: Code(s): J95.811 - Postprocedural pneumothorax Status: Acute Assessment and Plan: - CXR pre-procedure: Emphysema - CT guided biopsy: Successful CT-guided biopsy of the 2.7 x 1.6 cm FDG avid subsolid nodule in the anterior segment of the right upper lobe. - CXR post-procedure: New small right pneumothorax - spoke with Jun MCCANN, no current indication for chest tube - repeat CXR this morning showed moderate-size right pneumothorax - consult said radiology for pigtail chest tube placement - consulted surgery for assistance in management of chest tube, recs appreciated - anticipate chest tube to suction today, repeat x-ray in the morning, if pneumothorax is resolved likely will be placed to water seal - continuous pulse ox (2) COPD (chronic obstructive pulmonary disease): Qualifiers: COPD type: unspecified COPD Qualified Code(s): J44.9 - Chronic obstructive pulmonary disease, unspecified Code(s): J44.9 - Chronic obstructive pulmonary disease, unspecified Status: Acute Assessment and Plan: - has previously been told she likely has COPD, faint expiratory wheeze and poor air movement on exam - Nikolay p.r.n. - patient has a history of smoking she states she quit 5 days ago. Counseled on smoking cessation. Nicotine patch or gum as needed. Plan Diet: Regular GI Prophylaxis: Not currently indicated DVT Prophylaxis: SCDs Lines: Peripheral Code Status: Full code Subjective Date/time seen: 08/12/24 18:21 Interval history: patient seen after placement of right-sided chest tube. She is in no acute distress. She is tearful at times. She has some tenderness to the right chest tube site but she does not require pain medication at this time. Chest tube is to suction with good seal. Review of Systems Review of Systems: All systems reviewed & are unremarkable except as noted in HPI and below Exam Narrative: General: appears comfortable, in no acute distress Respiratory: breathing is unlabored with even chest rise/fall, lungs are clear Occasional expiratory wheeze and rhonchi Cardiovascular: Rate and rhythm regular, normal s1s2, no murmur Abdomen: Soft, round, non-tender, active bowel sounds Extremities: No cyanosis, edema, + clubbing. Pulses 2/2 Neuro: A&O x 4, anxious Skin: Warm, dry, intact, Tawney skin Objective Data Vital Signs Vital Signs: Vital Signs - 24 hr 08/11/24 20:00 08/11/24 21:57 08/11/24 21:59 Temperature Pulse Rate 91 94 Respiratory Rate 16 18 Blood Pressure Pulse Oximetry 94 93 Oxygen Delivery Room Air Room Air Fraction of Inspired Oxygen 21 08/11/24 22:07 08/11/24 22:00 08/12/24 00:00 Temperature 97.5 F L 97.0 F L Pulse Rate 99 91 83 Respiratory Rate 18 16 16 Blood Pressure 110/54 L 122/59 L Pulse Oximetry 95 95 Oxygen Delivery Fraction of Inspired Oxygen 08/12/24 04:00 08/12/24 09:09 08/12/24 14:51 Temperature 97.0 F L 97.9 F 98.0 F Pulse Rate 84 69 86 Respiratory Rate 16 18 18 Blood Pressure 126/65 132/73 138/71 Pulse Oximetry 94 96 95 Oxygen Delivery Fraction of Inspired Oxygen 08/12/24 16:52 Temperature 97.8 F Pulse Rate 86 Respiratory Rate 16 Blood Pressure 139/70 Pulse Oximetry 94 Oxygen Delivery Fraction of Inspired Oxygen Intake/Output Intake/Output: Intake & Output 08/09/24 08/10/24 08/11/24 08/12/24 23:59 23:59 23:59 23:59 Intake Total 590 Balance 590 Meds/Results Medications: Active Medications Generic Name Dose Route Start Last Admin Trade Name Freq PRN Reason Stop Dose Admin Acetaminophen 650 mg 08/11/24 20:00 Acetaminophen 325 Mg Tablet PO Q6H PRN Mild Pain (1-3) or Fever Albuterol/Ipratropium 3 ml 08/12/24 04:00 Ipratropium 0.5 Mg/Albuterol Sulfate 2.5 Mg Ampul.Neb 3 Ml INHALATION Q6HRT PRN Shortness Of Breath Or Wheezing Ibuprofen 400 mg 08/11/24 22:01 Ibuprofen 400 Mg Tablet PO Q6H PRN mild pain or headache Radiology Results: ITS Impressions Lung Biopsy CT 08/11/24 14:13 IMPRESSION: 1[address] Successful CT-guided biopsy of the 2.7 x 1.6 cm FDG avid subsolid nodule in the anterior segment of the right upper lobe. Chest X-Ray 08/12/24 08:34 IMPRESSION: 1. Progressive enlargement of a now moderate-sized right pneumothorax. No tachypnea with oxygen saturation remaining 94%. CT-guided chest tube placement is planned. Chest Tube Insertion 08/12/24 14:12 IMPRESSION: 1. Successful CT-guided right apical chest tube placement with essentially complete decompression of the prior right pneumothorax. 2. The catheter will be managed by Dr. Miranda. Quality VTE Prophylaxis VTE prophylaxis: mechanical ordered
[2024-08-13] VITALS (7 sets, daily range): BP systolic 109–148; BP diastolic 70–86; PULSE 70–90; RESP 16–20; TEMP 36.4–36.8; O2SAT 94–97
--- NOTE | 2024-08-13 01:54 | PC.NURSE ---
Daylight Savings Time For Daylight Savings Time Ending in the Fall - Clocks are moved back. For Daylight Savings Time Beginning in the Spring - Clocks are moved ahead. For [facility], the time of change occurs at 0200 hrs. Time is taken from the client server developer. This entry on the patient's chart recognizes the change in time reflected during documentation. Example: 2 entries for vital signs may be charted for 0200 hrs.
--- NOTE | 2024-08-13 08:07 | PM.IMPN ---
Progress Note: A&P Assessment and Plan (1) Pneumothorax after biopsy: Code(s): J95.811 - Postprocedural pneumothorax Status: Acute Assessment and Plan: - CXR pre-procedure: Emphysema - CT guided biopsy: Successful CT-guided biopsy of the 2.7 x 1.6 cm FDG avid subsolid nodule in the anterior segment of the right upper lobe. - CXR post-procedure: New small right pneumothorax - spoke with Jun MCCANN, no current indication for chest tube - repeat CXR this morning showed moderate-size right pneumothorax - consult said radiology for pigtail chest tube placement - consulted surgery for assistance in management of chest tube, recs appreciated - anticipate chest tube to suction today, repeat x-ray in the morning, if pneumothorax is resolved likely will be placed to water seal - continuous pulse ox - repeat x-ray 08/13 without pneumothorax. (2) COPD (chronic obstructive pulmonary disease): Qualifiers: COPD type: unspecified COPD Qualified Code(s): J44.9 - Chronic obstructive pulmonary disease, unspecified Code(s): J44.9 - Chronic obstructive pulmonary disease, unspecified Status: Acute Assessment and Plan: - has previously been told she likely has COPD, faint expiratory wheeze and poor air movement on exam - Nikolay duff - patient has a history of smoking she states she quit 5 days ago. Counseled on smoking cessation. Nicotine patch or gum as needed Plan Diet: Regular GI Prophylaxis: Not currently indicated DVT Prophylaxis: SCDs Lines: Peripheral Code Status: Full code Subjective Date/time seen: 08/13/24 08:07 Interval history: No acute events overnight. Patient has no complaints. Chest tube remains to suction. X-ray looks better. Anticipate going to water seal today. Review of Systems Review of Systems: All systems reviewed & are unremarkable except as noted in HPI and below Exam Narrative: General: appears comfortable, in no acute distress Respiratory: breathing is unlabored with even chest rise/fall, lungs are clear Occasional expiratory wheeze and rhonchi. Right chest tube to continuous wall suction Cardiovascular: Rate and rhythm regular, normal s1s2, no murmur Abdomen: Soft, round, non-tender, active bowel sounds Extremities: No cyanosis, edema, + clubbing. Pulses 2/2 Neuro: A&O x 4, anxious Skin: Warm, dry, intact, Tawney skin Objective Data Vital Signs Vital Signs: Vital Signs - 24 hr 08/12/24 09:09 08/12/24 14:51 08/12/24 16:52 Temperature 97.9 F 98.0 F 97.8 F Pulse Rate 69 86 86 Respiratory Rate 18 18 16 Blood Pressure 132/73 138/71 139/70 Pulse Oximetry 96 95 94 Oxygen Delivery 08/12/24 20:00 08/12/24 21:00 08/13/24 06:00 Temperature 97.7 F 97.6 F Pulse Rate 79 72 Respiratory Rate 16 16 Blood Pressure 143/74 H 148/86 H Pulse Oximetry 94 94 94 Oxygen Delivery Room Air Intake/Output Intake/Output: Intake & Output 08/10/24 08/11/24 08/12/24 08/13/24 23:59 23:59 23:59 22:59 Intake Total 830 600 Output Total 200 Balance 830 400 Meds/Results Medications: Active Medications Generic Name Dose Route Start Last Admin Trade Name Freq PRN Reason Stop Dose Admin Acetaminophen 650 mg 08/11/24 20:00 Acetaminophen 325 Mg Tablet PO Q6H PRN Mild Pain (1-3) or Fever Albuterol/Ipratropium 3 ml 08/12/24 04:00 Ipratropium 0.5 Mg/Albuterol Sulfate 2.5 Mg Ampul.Neb 3 Ml INHALATION Q6HRT PRN Shortness Of Breath Or Wheezing Ibuprofen 400 mg 08/11/24 22:01 Ibuprofen 400 Mg Tablet PO Q6H PRN mild pain or headache Nicotine Polacrilex 4 mg 08/12/24 18:31 Nicotine (*Pbkc) 4 Mg Gum PO PRN PRN Nicotine Cravings Radiology Results: ITS Impressions Lung Biopsy CT 08/11/24 14:13 IMPRESSION: 1[address] Successful CT-guided biopsy of the 2.7 x 1.6 cm FDG avid subsolid nodule in the anterior segment of the right upper lobe. Chest Tube Insertion 08/12/24 14:12 IMPRESSION: 1. Successful CT-guided right apical chest tube placement with essentially complete decompression of the prior right pneumothorax. 2. The catheter will be managed by Dr. Miranda. Quality VTE Prophylaxis VTE prophylaxis: mechanical ordered
--- NOTE | 2024-08-13 11:32 | WPDPN ---
Progress Note: A&P Assessment and Plan (1) Pneumothorax after biopsy: Code(s): J95.811 - Postprocedural pneumothorax Status: Acute Assessment and Plan: Repeat chest x-ray today shows no residual pneumothorax. Chest tube is in good position. Chest tube to water seal today. Recheck chest x-ray in 4hours. If no change in the chest x-ray then continues to water seal today and repeat chest x-ray tomorrow. If no change tomorrow then chest tube out tomorrow and discharge home. Subjective Date/time seen: 08/13/24 11:32 Interval history: Patient is doing well. No shortness of breath or chest pain. He is sitting up in a chair portable chest x-ray this morning shows no evidence of residual right pneumothorax. Pigtail thoracostomy tube in place. Exam Resp: Other: Equal breath sounds bilaterally. Right Chest tube dressing is dry and intact. No air leak with cough in the water seal chamber. Objective Data Vital Signs Vital Signs: Vital Signs - 24 hr 08/12/24 14:51 08/12/24 16:52 08/12/24 20:00 Temperature 36.7 C 36.6 C 36.5 C Pulse Rate 86 86 79 Respiratory Rate 18 16 16 Blood Pressure 138/71 139/70 143/74 H Pulse Oximetry 95 94 94 Oxygen Delivery 08/12/24 21:00 08/13/24 06:00 08/13/24 10:41 Temperature 36.4 C Pulse Rate 72 Respiratory Rate 16 Blood Pressure 148/86 H Pulse Oximetry 94 94 95 Oxygen Delivery Room Air Room Air 08/13/24 11:13 Temperature 36.7 C Pulse Rate 86 Respiratory Rate 16 Blood Pressure 139/73 Pulse Oximetry 97 Oxygen Delivery Intake/Output Intake/Output: Intake & Output 08/10/24 08/11/24 08/12/24 08/13/24 23:59 23:59 23:59 22:59 Intake Total 830 840 Output Total 200 Balance 830 640 Meds/Results Medications: Active Medications Generic Name Dose Route Start Last Admin Trade Name Freq PRN Reason Stop Dose Admin Acetaminophen 650 mg 08/11/24 20:00 Acetaminophen 325 Mg Tablet PO Q6H PRN Mild Pain (1-3) or Fever Albuterol/Ipratropium 3 ml 08/12/24 04:00 Ipratropium 0.5 Mg/Albuterol Sulfate 2.5 Mg Ampul.Neb 3 Ml INHALATION Q6HRT PRN Shortness Of Breath Or Wheezing Ibuprofen 400 mg 08/11/24 22:01 Ibuprofen 400 Mg Tablet PO Q6H PRN mild pain or headache Nicotine Polacrilex 4 mg 08/12/24 18:31 Nicotine (*Pbkc) 4 Mg Gum PO PRN PRN Nicotine Cravings Radiology Results: ITS Impressions Lung Biopsy CT 08/11/24 14:13 IMPRESSION: 1[address] Successful CT-guided biopsy of the 2.7 x 1.6 cm FDG avid subsolid nodule in the anterior segment of the right upper lobe. Chest Tube Insertion 08/12/24 14:12 IMPRESSION: 1. Successful CT-guided right apical chest tube placement with essentially complete decompression of the prior right pneumothorax. 2. The catheter will be managed by Dr. Miranda. Chest X-Ray 08/13/24 10:25 IMPRESSION: 1. Resolution of prior right pneumothorax post right chest tube placement.
[2024-08-14 04:00] VITALS: BP 131/95; PULSE 79; RESP 20; TEMP 36.7; O2SAT 93
[2024-08-14 08:54] VITALS: BP 131/72; PULSE 69; RESP 16; TEMP 36.6; O2SAT 100
[2024-08-14 12:00] VITALS: BP 122/68; PULSE 87; RESP 16; TEMP 36.8; O2SAT 93
--- NOTE | 2024-08-14 13:26 | PM.IMPN ---
Progress Note: A&P Assessment and Plan (1) Pneumothorax after biopsy: Code(s): J95.811 - Postprocedural pneumothorax Status: Acute Assessment and Plan: - CXR pre-procedure: Emphysema - CT guided biopsy: Successful CT-guided biopsy of the 2.7 x 1.6 cm FDG avid subsolid nodule in the anterior segment of the right upper lobe. - CXR post-procedure: New small right pneumothorax - spoke with Jun MCCANN, no current indication for chest tube - repeat CXR this morning showed moderate-size right pneumothorax - consult said radiology for pigtail chest tube placement - consulted surgery for assistance in management of chest tube, recs appreciated - anticipate chest tube to suction today, repeat x-ray in the morning, if pneumothorax is resolved likely will be placed to water seal - continuous pulse ox - chest tube removed. repeat x-ray at 1600 (2) COPD (chronic obstructive pulmonary disease): Qualifiers: COPD type: unspecified COPD Qualified Code(s): J44.9 - Chronic obstructive pulmonary disease, unspecified Code(s): J44.9 - Chronic obstructive pulmonary disease, unspecified Status: Acute Assessment and Plan: - has previously been told she likely has COPD, faint expiratory wheeze and poor air movement on exam - Nikolay duff - patient has a history of smoking she states she quit 5 days ago. Counseled on smoking cessation. Nicotine patch or gum as needed Plan Diet: Regular GI Prophylaxis: Not currently indicated DVT Prophylaxis: SCDs Lines: Peripheral Code Status: Full code Subjective Date/time seen: 08/14/24 13:26 Interval history: Chest tube was removed by surgery. Patient is doing well at this time. No complaints. Repeat chest x-ray this afternoon. Review of Systems Review of Systems: All systems reviewed & are unremarkable except as noted in HPI and below Exam Narrative: General: appears comfortable, in no acute distress Respiratory: breathing is unlabored with even chest rise/fall, lungs are clear Occasional expiratory wheeze and rhonchi. Right chest tube to continuous wall suction Cardiovascular: Rate and rhythm regular, normal s1s2, no murmur Abdomen: Soft, round, non-tender, active bowel sounds Extremities: No cyanosis, edema, + clubbing. Pulses 2/2 Neuro: A&O x 4, anxious Skin: Warm, dry, intact, Tawney skin Objective Data Vital Signs Vital Signs: Vital Signs - 24 hr 08/13/24 15:01 08/13/24 17:47 08/13/24 20:18 Temperature 98.1 F 97.7 F Pulse Rate 90 73 Respiratory Rate 16 16 Blood Pressure 109/70 142/85 H Pulse Oximetry 95 95 Oxygen Delivery Room Air 08/13/24 20:00 08/13/24 23:37 08/14/24 04:00 Temperature 98.2 F 98.1 F 98.1 F Pulse Rate 73 70 79 Respiratory Rate 20 20 20 Blood Pressure 133/79 111/70 131/95 H Pulse Oximetry 97 96 93 Oxygen Delivery 08/14/24 08:54 08/14/24 08:00 Temperature 97.9 F Pulse Rate 69 Respiratory Rate 16 Blood Pressure 131/72 Pulse Oximetry 100 Oxygen Delivery Room Air Intake/Output Intake/Output: Intake & Output 08/12/24 08/13/24 08/13/24 08/14/24 00:59 00:59 23:59 23:59 Intake Total 720 Output Total Balance 720 Meds/Results Medications: Active Medications Generic Name Dose Route Start Last Admin Trade Name Freq PRN Reason Stop Dose Admin Acetaminophen 650 mg 08/11/24 20:00 Acetaminophen 325 Mg Tablet PO Q6H PRN Mild Pain (1-3) or Fever Albuterol/Ipratropium 3 ml 08/12/24 04:00 Ipratropium 0.5 Mg/Albuterol Sulfate 2.5 Mg Ampul.Neb 3 Ml INHALATION Q6HRT PRN Shortness Of Breath Or Wheezing Ibuprofen 400 mg 08/11/24 22:01 Ibuprofen 400 Mg Tablet PO Q6H PRN mild pain or headache Nicotine Polacrilex 4 mg 08/12/24 18:31 Nicotine (*Pbkc) 4 Mg Gum PO PRN PRN Nicotine Cravings Radiology Results: ITS Impressions Lung Biopsy CT 08/11/24 14:13 IMPRESSION: 1. Successful CT-guided biopsy of the 2.7 x 1.6 cm FDG avid subsolid nodule in the anterior segment of the right upper lobe. Chest Tube Insertion 08/12/24 14:12 IMPRESSION: 1. Successful CT-guided right apical chest tube placement with essentially complete decompression of the prior right pneumothorax. 2. The catheter will be managed by Dr. Miranda. Chest X-Ray 08/14/24 08:38 IMPRESSION: No change from previous examination. Quality VTE Prophylaxis VTE prophylaxis: mechanical ordered
--- NOTE | 2024-08-14 13:36 | P.PNGS_ITS ---
Progress Note: A&P Assessment and Plan (1) Pneumothorax after biopsy: Code(s): J95.811 - Postprocedural pneumothorax Status: Acute Assessment and Plan: Repeat chest x-ray on water seal today was stable. No changes from her repeat chest x-ray yesterday afternoon. I removed her chest tube at the bedside. Will repeat a chest x-ray in a few hours and if this is stable, then she can be discharged home. Plan I have discussed the patient's case and plan of care with Dr. Gonzalez. Subjective Subjective Date/Time Seen: 08/14/24 12:00 Patient reports: no new complaints Interval history: This is a 64-year-old woman with right upper lobe lung lesion that underwent CT- guided right lung biopsy in Radiology and was found to have a postprocedural small apical right pneumothorax. She was observed overnight and asymptomatic, but her pneumothorax progressed to about a 30% right pneumothorax without mediastinal shift. She then had a CT-guided right pigtail thoracostomy tube placed in IR by the radiologist. Her chest tube was put to water seal yesterday and repeat chest x-ray stable. Chest tube was on water seal overnight and she had a repeat chest x-ray this morning that looked unchanged from the prior chest x-ray yesterday afternoon. She denies any chest pain or shortness of breath. Exam Const: General: comfortable and no acute distress Orientation/consciousness: patient oriented x3 Chest: Chest palpation & inspection: no crepitus Other: Right pigtail thoracostomy tube with dressing dry and intact. No air leak on exam. Chest tube removed at the bedside today and sterile occlusive dressing applied immediately. Patient tolerated chest tube removal well. Resp: Effort & Inspection: normal respiratory effort Auscultation: clear to auscultation bilaterally Objective Data Vital Signs Vital Signs: Vital Signs - 24 hr 08/13/24 15:01 08/13/24 17:47 08/13/24 20:18 Temperature 98.1 F 97.7 F Pulse Rate 90 73 Respiratory Rate 16 16 Blood Pressure 109/70 142/85 H Pulse Oximetry 95 95 Oxygen Delivery Room Air 08/13/24 20:00 08/13/24 23:37 08/14/24 04:00 Temperature 98.2 F 98.1 F 98.1 F Pulse Rate 73 70 79 Respiratory Rate 20 20 20 Blood Pressure 133/79 111/70 131/95 H Pulse Oximetry 97 96 93 Oxygen Delivery 08/14/24 08:54 08/14/24 08:00 Temperature 97.9 F Pulse Rate 69 Respiratory Rate 16 Blood Pressure 131/72 Pulse Oximetry 100 Oxygen Delivery Room Air Intake/Output Intake/Output: Intake & Output 08/12/24 08/13/24 08/13/24 08/14/24 00:59 00:59 23:59 23:59 Intake Total 720 Output Total Balance 720 Meds/Results Medications: Active Medications Generic Name Dose Route Start Last Admin Trade Name Freq PRN Reason Stop Dose Admin Acetaminophen 650 mg 08/11/24 20:00 Acetaminophen 325 Mg Tablet PO Q6H PRN Mild Pain (1-3) or Fever Albuterol/Ipratropium 3 ml 08/12/24 04:00 Ipratropium 0.5 Mg/Albuterol Sulfate 2.5 Mg Ampul.Neb 3 Ml INHALATION Q6HRT PRN Shortness Of Breath Or Wheezing Ibuprofen 400 mg 08/11/24 22:01 Ibuprofen 400 Mg Tablet PO Q6H PRN mild pain or headache Nicotine Polacrilex 4 mg 08/12/24 18:31 Nicotine (*Pbkc) 4 Mg Gum PO PRN PRN Nicotine Cravings Radiology Results: ITS Impressions Lung Biopsy CT 08/11/24 14:13 IMPRESSION: 1. Successful CT-guided biopsy of the 2.7 x 1.6 cm FDG avid subsolid nodule in the anterior segment of the right upper lobe. Chest Tube Insertion 08/12/24 14:12 IMPRESSION: 1. Successful CT-guided right apical chest tube placement with essentially complete decompression of the prior right pneumothorax. 2. The catheter will be managed by Dr. Miranda. Chest X-Ray 08/14/24 08:38 IMPRESSION: No change from previous examination.
[2024-08-14 14:02] VITALS: O2SAT 95
--- NOTE | 2024-08-14 15:06 | P.DS_ITS ---
DS: Admitting Diagnosis Discharge Date 08/14 Admitting Diagnosis Pneumothorax DS: Discharge Diagnosis Discharge Diagnosis (1) Pneumothorax after biopsy: Code(s): J95.811 - Postprocedural pneumothorax Status: Acute Assessment and Plan: - CXR pre-procedure: Emphysema - CT guided biopsy: Successful CT-guided biopsy of the 2.7 x 1.6 cm FDG avid subsolid nodule in the anterior segment of the right upper lobe. - CXR post-procedure: New small right pneumothorax - spoke with Jun MCCANN, no current indication for chest tube - repeat CXR this morning showed moderate-size right pneumothorax - consult said radiology for pigtail chest tube placement - consulted surgery for assistance in management of chest tube, recs appreciated - anticipate chest tube to suction today, repeat x-ray in the morning, if pneumothorax is resolved likely will be placed to water seal - continuous pulse ox - chest tube removed. repeat x-ray at 1600 (2) COPD (chronic obstructive pulmonary disease): Qualifiers: COPD type: unspecified COPD Qualified Code(s): J44.9 - Chronic obstructive pulmonary disease, unspecified Code(s): J44.9 - Chronic obstructive pulmonary disease, unspecified Status: Acute Assessment and Plan: - has previously been told she likely has COPD, faint expiratory wheeze and poor air movement on exam - Nikolay p.r.n. - patient has a history of smoking she states she quit 5 days ago. Counseled on smoking cessation. Nicotine patch or gum as needed Plan Diet: Regular GI Prophylaxis: Not currently indicated DVT Prophylaxis: SCDs Lines: Peripheral Code Status: Full code DS: Summary Hospital Course Reason for hospitalization: Pneumothorax Hospital Course: 64 y/o F presented here for a lung biopsy with PMH of tobacco abuse and COPD. The patient presented here for a CT-guided biopsy of a right upper lobe lung mass today, 08/11. Postprocedure the patient developed a new small to right hemothorax. She currently denying shortness of breath, cough, rib or chest wall pain. Suspected 4 mm nodule right lung apex with possible focal central cavitation was 1st noted on CT of the lungs on 06/30/2024. She is formerly an every day smoker, 2 ppd x 50+ years with cessation on Saturday 08/04. She has no personal history of cancer. Family history of cancer - mom (breast), aunt (breast), cousins (breast), uncle (lung cancer), grandmother (pancreatic). Initial VS at presentation: 97.5? F, HR 90, RR 14, 138/75, and 98% on RA. Chest x-ray was repeated in the morning the following day after admission and found to have a moderate size pneumothorax. Interventional Radiology was consulted for pigtail chest tube placement. General surgery was consulted for assistance in management of the chest tube. Chest tube was removed on 08-14 and repeat imaging obtained 4 hours later. No recurrence of pneumothorax. Patient was instructed on signs and symptoms of recurrent pneumothorax and when to return to the emergency room. She was instructed to follow up with her primary care provider as needed. She was counseled on continuing smoking cessation. Overall she did well and discharged home in stable condition. Time Spent with Patient Time attestation: Total time spent providing and/or coordinating discharge services: 72 Exam Narrative: General: appears comfortable, in no acute distress Respiratory: breathing is unlabored with even chest rise/fall, lungs are clear Occasional expiratory wheeze and rhonchi. Right chest tube to continuous wall suction Cardiovascular: Rate and rhythm regular, normal s1s2, no murmur Abdomen: Soft, round, non-tender, active bowel sounds Extremities: No cyanosis, edema, + clubbing. Pulses 2/2 Neuro: A&O x 4, anxious Skin: Warm, dry, intact, Tawney skin Discharge Plan Discharge Attending physician on discharge: Emeterio Hill Consulting providers: bP Gonzalez Discharging Clinician: Amanda Oro Patient Disposition: Home Health Service Activity: february shower Diet: regular Discharge Instructions: Per Care Coordination. Patient to have [facility] for RN/PT/OT eval and treat [phone]. RN please fax discharge instructions to [phone]. INSTRUCTIONS AFTER BIOPSIES, PARACENTESIS, OR THORACENTESIS [facility] After the biopsy procedure: 1. No driving for 24 hours. 2. For biopsy patients, do not lift anything heavier than 15 pounds for 3 days. 3. If this is an outpatient procedure, resume your normal diet after leaving the hospital. 4. If this is an outpatient procedure, resume anticoagulant (blood thinners) the day after the procedure. 5. Call your doctor or nurse for pain, fever of 101 or higher or chills, or foul drainage from the incision site. If you have severe pain or difficulty breathing, report to the emergency department. 6. Call your doctor or nurse for a follow-up appointment and test results. After chest tube removal: 1. Keep your dressing in place for 3 days and then you can remove it on 08/17/24. After removal, you may shower and apply a gauze dressing daily for the next few days. Then you may leave it open to air. 2. Go directly to the ER if you develop chest pain or shortness of breath. 3. No strenuous activity, no flying, and no scuba diving for a month. Patient Instructions: Antibiotic Form, Spontaneous Pneumothorax (DC) Stand Alone Forms: General Discharge Information Follow-up/Referrals: Ehsan Madrigal MD [Primary Care Provider] - Discharge Medications: New nicotine (polacrilex) 4 mg Gum 4 mg PO PRN PRN (Reason: Nicotine Cravings) Qty: 50 0RF Continued ibuprofen 200 mg Tablet 400 mg PO Q6H PRN (Reason: mild pain or headache) Date of admission: 08/12/24 12:24 Primary Care Provider: Ehsan Madrigal Admitting Provider: Emeterio Hill Attending physician on admission: Francisco Carr Condition: Improved Quality VTE Prophylaxis VTE prophylaxis: mechanical ordered
== END 2024-08-14 17:05 | disposition home health service (06) | DRG 200 ==
LOC: ANH3MED 16:34
PROVIDERS: Radiology Diagnostic Radiology; Admitting Provider Internal Medicine; PCP Internal Medicine; Visit Provider Nurse Practitioner Acute Care
PROC: BB24ZZZ Computerized Tomography (CT Scan) of Bilateral Lungs (ICD-10-PCS; CPT 32408; principal; 2024-08-11 11:00)
DX: J95.811 Postprocedural pneumothorax (principal); C34.11 Malignant neoplasm of upper lobe, right bronchus or lung; J44.9 Chronic obstructive pulmonary disease, unspecified; Z87.891 Personal history of nicotine dependence; R91.1 Solitary pulmonary nodule
CPT/HCPCS: 32408; 32550; 36415; 71045; 71046; 75989; 85049; 85610; 88305; 94640; A9270; C1729; C1769; G0378

== ENCOUNTER 2024-12-27 15:15 | Outpatient (CLI) | payer MEDICARE, MEDICAID, SELFPAY ==
--- NOTE | ~2024-12-27 | XR_ITS ---
CHEST RADIOGRAPH, PA AND LATERAL CLINICAL HISTORY: DOMINGO . COMPARISON: 08/14/2024 TECHNIQUE: PA and lateral views of the chest. FINDINGS The cardiomediastinal silhouette is unremarkable. The lungs are clear. Visualized osseous structures and soft tissues are unremarkable. IMPRESSION: No focal infiltrate or effusion. Reviewed, dictated and finalized at location A.
--- OUTSIDE RECORDS SUMMARY | 2024-12-27 16:13 | XMS_ITS ---
Author Organization [facility] Address [address] [place] [address] Care Team Providers Care Equity Trader Name Role Phone Ehsan Madrigal Primary Care Provider [phone] REASON FOR VISIT LAB Social History Sex Assigned At : Social History Observation Description Sex Assigned At Female Encounters Encounter Location Date Provider Diagnosis [address] [id number] 12/27/2024 Ehsan Madrigal Screening for diabet es mellitus Z13.1 ; DOMINGO (dyspnea on exertion) R06.09 ; Lipid screening Z13.220 ; Adenocarcinoma C80.1 and Fatigue R53.83 Assessments Encounter Date Diagnosis (ICD Code) Assessment Notes Treatment Notes Treatment Clinical Notes Section Notes 12/27/2024 Screening for diabetes mellitus (ICD-10 - Z13.1) 12/27/2024 DOMINGO (dyspnea on exertion) (ICD-10 - R06.09) 12/27/2024 Lipid screening (ICD-10 - Z13.220) 12/27/2024 Adenocarcinoma (ICD-10 - C80.1) 12/27/2024 Fatigue (ICD-10 - R53.83) Plan Of Treatment Pending Test Test Name Order Date Hemoglobin A1c* 12/27/2024 CBC With Differential/Platelet* 12/28/19 25 Lipid Panel* 12/27/2024 CMP 14 Comprehensive Metabolic Panel* TSH Rfx on Abnormal to Free T4 Progress Notes * Jude MOCTEZUMAOB:1960 (64 yo F)Acc No.[id number]:12/27/2024 Patient: Cheyenne DURAN Provider: Dixie Madrigal :1960 A ge:64 Y S ex:Female Date:12/27/2024 Address:[address] [place] [address], [place], [id number] Subjective: * Chief Complaints: * 1 . LAB. * Medical History: Objective: * Vitals: Assessment: * Assessment: 1. S creening for diabetes mellitus - Z13.1 2 . D OE (dyspnea on exertion) - R06.09 3 . L ipid screening - Z13.220 4 . A denocarcinoma - C80.1 5 . F atigue - R53.83 Plan: * Treatment: 2. D OE (dyspnea on exertion) L AB: CBC With Differential/Platelet* (Collection Date & Time - 12/27/2024) 3. L ipid screening L AB: Lipid Panel* (Collection Date & Time - 12/27/2024) 4. A denocarcinoma L AB: CMP 14 Comprehensive Metabolic Panel* (Collection Date & Time - 12/27/2024) 5. F atigue L AB: TSH Rfx on Abnormal to Free T4 (Collection Date & Time - 12/27/2024) * * Sign off status: Completed true * Provider: Dixie Madrigal Date: 0 12/27/2024 Generated for Milton landeros/Dash/eTgerberitting on: 0 12/27/2024 04:12 PM CDT
--- OUTSIDE RECORDS SUMMARY | 2024-12-27 16:13 | XMS_ITS | Clinical Summary ---
Author Organization [facility] Address [facility] [place] [address] Care Team Providers Care Poultry Cutter Name Role Phone Unavailable Primary Care Provider Unavailabl e Social History Tobacco Use Types Packs/Day Years Used Date Smoking Tobacco: Never Assessed Comments Unknown Sex and Gender Information Value Date Recorded Sex Assigned at Not on file Legal Sex Female 7:35 PM CDT Gender Identity Not on file Sexual Orientation Not on file Plan of Treatment Health Maintenance Due Date Last Done Comments Colorectal Cancer Screening Colonoscopy (10 Years) 1960 Hepatitis C 1976 DTaP, Tdap and Td Vaccines ( 1 - Tdap) 1977 Mammogram Screening 1998 Zoster Vaccines (1 of 2) 2008 Dexa Scan (General) 2023 Pneumococcal Vaccine: 65+ Ye ars (1 of 1 - PCV) 2023 COVID-19 Vaccine (2023-2 5 season) 2024 Influenza Adult (#1) 2024 RSV Immunization or 60+ Years (1 - 1-dose 75+ series) 2033 Meningococcal B Vaccine Aged Out No l onger eligible based on patient's age to complete this topic Meningococcal Vaccine Aged Out No berry malu eligible based on patient's age to complete this topic RSV Immunizations Under 20 Months Aged Out No longer eligible based on patient's age to complete this topic
--- OUTSIDE RECORDS SUMMARY | 2024-12-27 16:13 | XMS_ITS | Data Portability ---
Author Organization [facility] [employer] [facility], Main Office Address [address] [place] [address] Care Team Providers Care Maple Sugar Maker Name Role Phone PHILLIP RICO Primary Care Provider PHILLIP RICO Referring Provider [phone] Assessment Encounter Date Assessment Date Assessment LastModified by Organization Details LastModified Time 07/10/2024 07/10/2024 This note is dictated and transcribed by [email or web address]. Pl[employer] Process Hand variances may occur. Despite proofreading, typographical errors may occur. Occasional wrong-word or '[id number]' substitutions may have occurred due to the inherent limitations of voice recording. Read the chart carefully and recognize, using context, where substitutions have occurred. [email or web address] Not available 07/10/2024 13:13:53 Plan of Treatment Reminders Order Date Submit Date Provider Last Modified By Organization Details Last Modified Time Details Appointments None record ed. Lab None record ed. Referral None record ed. Procedures None record ed. Surgeries None record ed. Imaging XR, foot, 3 or more view 024 07/11/20 24 [email or web address] [facility] [place], [address], [place], [address], 4 09:16:53 XR, foot, 3 or more view 024 07/11/20 24 [email or web address] [facility] [place], [address], [place], [address], 4 09:16:55 Medication Orders None record ed. Patient TargetsNo targets recorded. Patient InstructionsNo instructions recorded. Reason for Referral None Reported. Results Created Date Observation Date Name Description Value Unit Range Abnormal Flag Note LastModifiedBy Organization Detail LastModifiedTime 07/11/20 24 XR, foot, 3 or more view No observ ation record ed. [email or web address] [facility] [place] [address], [place], [address], 07/11/2024 09:16:29 07/11/20 24 XR, foot, 3 or more view No observ ation record ed. [email or web address] [facility] [place] [address], [place], [address], 07/11/2024 09:16:54 Result Notes None recorded. Problems Name Problem SNOMED Code Status Onset Date Resolution Date Notes Provider Name and Address Organization Details Recorded Time Anemia 092230251 Active 2023 Lanie clements [place] - [facility] 4 12:29:05 Anxiety 02705914 Active 2023 Lanie clements, [facility] 4 12:29:13 Arthritis 1046553 Active 2023 Lanie clements [facility] 4 12:29:19 Bronchitis 91685267 Active 2023 Lanie clements [facility] 4 12:29:28 Depressive disorder 04982552 Active 2023 Lanie clements [facility] 4 12:29:36 Dizziness 446520122 Active 2023 Lanie clements [facility] 4 12:29:45 Ear problem 340446811 Active 2023 Lanie clements [place] - [facility] 4 12:32:11 Disorder of eye 186826320 Active 2023 Lanie clements [facility] 4 12:32:18 Headache 16157223 Active 2023 Lanie Pollackd null, [facility] 4 12:32:24 Hyperchole sterolemia 19914149 Active 2023 Lanie Alvarado null, [facility] 4 12:32:32 Obesity 996930106 Active 2023 Lanie Alvarado null, [facility] 4 12:32:39 Osteoporos is 51459529 Active 2023 Lanie Alvarado null, [facility] 4 12:33:10 Pneumonia 906711353 Active 2023 Lanie Alvarado null, [facility] 4 12:33:19 Pain in right foot 3140984628549 07 Active 2023 Brian Dueñas DPM [address], [place], [address] , [facility] 4 09:10:37 Bunbutch 178255951 Active 2023 Brian Dueñas DPM [address], [place], [address] , [facility] 4 09:10:42 Foot callus 206563182 Active 2023 Brian Dueñas DPM [address], [place], [address] , [facility] 4 09:10:49 Hammer toe 143831231 Active 2023 Brian Dueñas DPM [address], [place], [address] , [facility] 4 09:14:14 Bunion 482796719 Active 2023 Brian Dueñas DPM [address], [place], [address] , [facility] 4 09:14:53 Notes:USE OF NSAIDS Problem Notes None recorded. Procedures Surgical History Date Name Laterality Status Provider Name and Address Organization Details Recorded Time 07/10/20 24 Nail Debridement completed Brian Dueñas DPM [address], [place], [address], [facility] [employer] [facility] 07/11/2024 09:13:49 07/10/20 24 Callus Debridement 2-4 completed Brian Dueñas DPM [address], [place], [address], [facility] [employer] [facility] 07/11/2024 09:13:57 10/11/18 83 section completed Lanie [facility] [employer] [facility] 07/10/2024 12:37:40 10/11/18 79 section completed [facility] [employer] [facility] 07/10/2024 12:37:36 10/11/18 78 section completed [facility] [employer] [facility] 07/10/2024 12:37:32 Carpal tunnel surgery completed [facility] [employer] [facility] 07/10/2024 12:38:07 Carpal tunnel surgery completed [facility] [employer] [facility] 07/10/2024 12:38:08 Imaging Results Imaging Date Name Status LastModified by Organiz ation Details LastModified Time 07/11/2024 XR, foot, 3 or more view completed [email or web address] [facility] [place] [address], [place], [address], 07/11/2024 09:16:29 07/11/2024 XR, foot, 3 or more view completed [email or web address] [facility] [place] [address], [place], [address], 07/11/2024 09:16:54 Procedure Notes None recorded. Medical Equipment None Reported. Medications Name Sig Start Date Stop Date Status Note LastModified by Organization Details LastModified Time Claritin -D active Not Available Not Available Not Available Vitals Date Recorded Heart rate Respiratory rate Oxygen saturation Oxygen saturation in Arterial blood by Pulse oximetry Provider Name and Address Organization Details Last Updated DateTime 07/10/2024 89 /min 16 /min 98 % 98 % Marlin Anurag [place] [employer] [facility] [employer] [facility] 12:02:18 Date Recorded Body height Body mass index (BMI) Body weight Provider Name and Address Organization Details Last Updated DateTime 07/10/2024 162.56 cm 28.7 kg/m2 11399.93 g Lanie Alvarado [facility] [employer] [facility] 07/10/2024 12:28:22 Social History None recorded. Functional Status None recorded. Mental Status None recorded. Family History Relationship Description Onset Age of this Age Resolved Age Notes LastModified by Organization Details LastModified Time Sister Diabetes mellitus (S) [email or web address] Not available 2023 12:34:07 Sister Hypertensive disorder (S) [email or web address] Not available 2023 12:35:14 Sister Heart disease [email or web address] Not available 2023 12:35:29 Father Diabetes mellitus [email or web address] Not available 2023 12:34:12 Father Hypertensive disorder [email or web address] Not available 2023 12:35:14 Father Heart disease [email or web address] Not available 2023 12:35:29 Father Blood coagulation disorder [email or web address] Not available 2023 12:35:59 Mother Cerebrovascu lar accident [email or web address] Not available 12:34:25 Mother Hypertensive disorder [email or web address] Not available 2023 12:35:14 Mother Family history of malignant neoplasm [email or web address] Not available 2023 12:35:38 Mother Osteoporosis Not availa ble 07/10/2024 12:35:48 Mother Blood coagulation disorder [email or web address] Not available 2023 12:35:59 Unspecified Relation Arthritis EVERYO NE Not available 07/10/2024 12:34:40 Medical History Condition Response ARTHRITIS Y HEADACHES/MIGRAINES Y OBESITY Y ANXIETY DISORDER Y ANEMIA/BLOOD DISORDER Y DIZZINESS Y OSTEOPOROSIS Y USE OF NSAIDS Y BACK / NECK PROBLEMS Y DEPRESSION (INCLUDING POST ) Y HIGH CHOLESTEROL / HYPERLIPIDEMIA Y Gynecological HistoryNo gynecological history recorded. Obstetrics History GPAL:G 0 P 0 0 0 0 Past Encounters Encounter ID Performer Location Encounter Start Date Encounter Closed Date Diagnosis/Indication Diagnosis SNOMED-CT Code Diagnosis ICD10 Code Diagnosis Note [id number] Brian Dueñas DPM [facility] [place] [address] [place] [address] 07/10/2024 11:41:21 07/13/2024 16:39:45 Pain in right foot 1399432821 90664 M79.671 secondary to below Bunion 022633008 M21.61 9 conservati ve and surgical treatments reviewedPa tient will need to stop smoking prior to surgery.Co nservative therapy options including wide shoe gear, silicone sleeves, bunion sleeves reviewed with the patientFol low-up 3 months Hammer toe 969538627 M20 .41 M20.42 as above Foot callus 619813124 L8 4 Debrided without incidentCo nservative offloading reviewed Health Concerns Section Related Observation LastModified by Organization Detai ls LastModified Time None Recorded Concern Status LastModified by Organization Details LastModified Time None Recorded Advance Directives Directive None Recorded Payers Encounter Date Sequence Insurance Name Policy Number Policy Matson Covered Member ID Matson Member ID Guarantor Name 07/10/2024 1 [place] Cheyenne Serrato [id number] Cheyenne Serrato 07/10/2024 2 [place] WHEN MEDICARE OR MEDICARE REPLACEMENT PRIMARY) Cheyenne Serrato [id number] Cheyenne Serrato Notes Date Note Type Note Provider Name and Address Organization Details Recorded Time 07/10/2024 text/html . Patient is a 64-year-old female she presents to the office with complaints of pain to her right plantar foot. Patient has had this issue for several years. Patient states she was seen by a reel assembler in the past she denies any wounds or infection but states that when she is walking she has pain worse to the sub 2nd metatarsal head. Patient has hammertoe and bunion deformities worse to the right foot. Patient is currently being evaluated for mental evaluation. Patient is a heavy smoker. Patient denies any other complaints. Brian Dueñas DPM [address], [place], [address], [facility] [employer] 07/11/2024 09:17:35 OBGyn Episode No OBEpisode recorded.
--- OUTSIDE RECORDS SUMMARY | 2024-12-27 16:13 | XMS_ITS ---
Author Organization [facility] Address [address] [place] [address] Care Team Providers Care Head Of Research & Insights Name Role Phone Ehsan Madrigal Primary Care Provider REASON FOR VISIT Other Social History Sex Assigned At : Social History Observation Description Sex Assigned At Female Encounters Encounter Location Date Provider Diagnosis [address] [place] [address] 12/25/2024 Ehsan Madrigal Plan Of Treatment No Information Progress Notes * Jude MOCTEZUMAOB:1960 (64 yo F)Acc No.[id number]:12/25/2024 UNLOCKED PROGRESS NOTE Patient: Cheyenne DURAN :1960 A ge:64 Y S ex:Female Address:[address], [place], [address] * * Date:
--- OUTSIDE RECORDS SUMMARY | 2024-12-27 16:13 | XMS_ITS | Patient Health Record ---
Author Organization [facility] Address [address] [place] [address] Care Team Providers Care Personal Banking Representative Name Role Phone Ehsan Madrigal Primary Care Provider CtZenia Unavailable [phone] Allergies No Known Allergies Results Component Value Reference Range Notes Low Dose CT: Lung Cancer Scr eening Reviewed date:08/02/2024 10:32:32 AM Interpretation: Performing Lab: Notes/Report: Comprehensive Drug Analysis, Urine Reviewed date:06/30/2024 09:37:35 AM Interpretation: Performing Lab: Notes/Report: UA/M w/rflx Culture, Routine Reviewed date:06/30/2024 09:37:35 AM Interpretation: Performing Lab: Notes/Report: Hemoglobin A1c* Reviewed date:06/30/2024 09:37:35 AM Interpretation: Performing Lab: Notes/Report: Lipid Panel* Reviewed date:06/30/2024 09:37:35 AM Interpretation: Performing Lab: Notes/Report: QuantiFERON-TB Gold Plus ([id number]) Reviewed date:06/30/2024 09:37:35 AM Interpretation: Performing Lab: Notes/Report: Rapid Plasma Reagin (RPR) Te st With Reflex to Quantitative RPR and Confirmatory Treponema pallidum Antibodies Reviewed date:06/30/2024 09:37:35 AM Interpretation: Performing Lab: Notes/Report: Hepatitis C Virus Antibody w /Rflx to Quantitative Real-time PCR ([id number]) Reviewed date:06/30/2024 09:37:35 AM Interpretation: Performing Lab: Notes/Report: Hepatitis B Surface Antigen (HBsAg Screen) Reviewed date:06/30/2024 09:37:36 AM Interpretation: Performing Lab: Notes/Report: HIV Screen *HIV 1, 2 Ab, p24 Ag ([id number]) Reviewed date:06/30/2024 09:37:35 AM Interpretation: Performing Lab: Notes/Report: CBC With Differential/Platel et* Reviewed date:06/30/2024 09:37:35 AM Interpretation: Performing Lab: Notes/Report: CMP 14 Comprehensive Metabol ic Panel* Reviewed date:06/30/2024 09:37:35 AM Interpretation: Performing Lab: Notes/Report: Iron and TIBC* Reviewed date:06/30/2024 09:37:35 AM Interpretation: Performing Lab: Notes/Report: Vitamin B12 and Folate Reviewed date:06/30/2024 09:37:35 AM Interpretation: Performing Lab: Notes/Report: TSH Rfx on Abnormal to Free T4 Reviewed date:06/30/2024 09:37:35 AM Interpretation: Performing Lab: Notes/Report: Occult Blood, Fecal, IA ([id number]) Reviewed date:08/08/2024 11:34:07 AM Interpretation: Performing Lab:[facility], [address] [place] [address], Phone - [phone], Director - Regla Notes/Report: Occult Blood, Fecal, IA Negative Negative CT Scan : Biopsy Lung Reviewed date:08/11/2024 04:04:53 PM Interpretation: Performing Lab: Notes/Report: PFTS with DLCO Reviewed date:08/18/2024 09:39:30 AM Interpretation: Performing Lab: Notes/Report: PET/CT Head to Mid-Thigh Reviewed date:08/02/2024 10:33:11 AM Interpretation: Performing Lab: Notes/Report: Reason For Referral Reason PAINFUL CALLOUS RIGH T FOOT , ONYCHOMYCOSIS, BUNIONS Diagnosis 1 Callus of foot (L84) Referral Organization [facility] Referring Provider First Name Ehsan Referring Provider Last Name Kaitlin Referring Provider Speciality Internal M edicine Referred Provider [facility] Referred Provider Specialty Podiatry General Notes KATHLEEN Harris Stephanie N 06/15/2024 08:57:40 AM >referral faxed. Confirmation pending.Kimberly RN, Stephanie N 06/16/2024 02:43:17 PM >referral was successfully faxed. Message sent to pt via the patient portal (last log-in 7 days ago) notifying her of the referral. See messenger logs. Clinical Notes [facility], [address] , [place] [address], , Referral Priority Routine Reason ISOLATED RUL MASS, B X RESULTS PENDING, PREFERS [facility] Diagnosis 1 Lung mass (R91.8) Referral Organization Critical access hospital Referring Provider First Name Ehsan Referring Provider Last Name Kaitlin Referring Provider Speciality Internal M edicine Referred Provider Specialty Thoracic Espinzoa jose david General Notes Zamzam Caballero 07/13 10:44:43 AM > Referral sent to [facility] Thoracic Surgery. Letter sent to patient., KATHLEEN Morrison, Maria D Chen 08/16/2024 07:43:12 AM >faxed with Biopsy results., KATHLEEN Morrison, Maria D Chen 08/16/2024 03:50:37 PM >Faxed to [facility] Thoracic Surgery Clinical Notes [facility] Thoracic Surgery, [address] [place] [address], , Referral Priority Urgent Reason ADENOCARCINOMA OF CHANO NG WITHOUT EVIDENCE OF METASTASES Diagnosis 1 Adenocarcinoma (C80. 1) Referral Organization Critical access hospital Referring Provider First Name Ehsan Referring Provider Last Name Kaitlin Referring Provider Speciality Internal edicine Referred Provider Specialty Oncology General Notes KATHLEEN Morrison, Gayle Chen 08/22/2024 04:24:51 PM >Pt's son wants Mother to see Thoracic surgeon first and then make referral to Oncology if necessary. Referral Priority Routine Reason MENTALLY IMPAIRED AN D NO NEARBY FAMILY, ANXIETY, DEPRESSION, POSSIBLE BIPOLAR, NEEDS WASTEWATER TREATMENT PLANT ATTENDANT Diagnosis 1 Mood disorder (F39) Referral Organization [facility] hospital Referring Provider First Name Zenia Referring Provider Last Name Ct Referring Provider Speciality Behavioral Health Referred Provider Specialty Behavioral H ealth General Notes [email or web address], [email or web address] Clinical Notes Layton Duarte 09/22/2024 10:03:32 AM > [employer] spoke with Cheyenne regarding current case management needs, client is struggling with getting groceries too her home as she is afraid to drive with current conditions, client has radiation appointments that she is struggling to get too, son is so far the only one able to jump in to help but son works making it hard on him to take off. [employer]anned Leather Roller will work to identify options for client moving forward.Girish Kristina L 10/24/2024 10:05:33 AM >LESA called [employer]. HN spoke with Ana and she stated that their volunteer organization has grown and they are branching out to the [place]. Ana explained that basically the client (with HN) needs to fill out the enrollment packet and submit it back to the organization to be entered into their computer system. Once the client is enrolled, she is able to see service including trips to and from the grocery store, dr appts, pharmacy etc. There are also small groups that come together to promote independence and remain active hoping to reduce isolation. Enrollment packet is being mailed to HN to complete with client. HN reaching out to the client to obtain a release for the organization.Girish Kristina L 10/24/2024 10:19:15 AM > LESA called Cheyenne to discuss the new information collected and to inform her about how to get the release signed. No answer, HN left VM.Girish Kristina L 10/24/2024 10:36:39 AM >Cheyenne called HN back and informed her that she already filled the enrollment packet out, [employer] called Cheyenne and told her she was accepted to the program and that if she needs a ride to call 7 days in advance to set it up. Cheyenne was also informed by the HN the [facility] is having a informational meeting with [employer] on Nov 02 at 11:30. Cheyenne stated that [facility] was right across the street from her house and she could walk there on to attend. Client stated that at this time she had no other things she could think about that I could help provide. Client is currently set up with [employer] and knows how to utilize it. Referral can be closed. Referral Priority Routine Immunizations Vaccine Route Administration Date Status Comme nts FLUAD (influenza vaccine, adjuvanted, 65+) Unknown 07/10/2024 Administered Kimberly, RN, Mickie britton Marie 08/14/2024 09:27:34 AM ORGANISATION AND METHODS ANALYST >Record of administration of FLUAD received from [facility] pharmacy. Social History Tobacco Use: Social History Observation Description Date Details (start date - stop date) Former Smoker NA - NA Sex Assigned At : Social History Observation Description Sex Assigned At Female Tobacco Control (Standard) Question Answer Notes Tobacco use: Former smoker Problems Problem Type SNOMED Code ICD Code Onset Dates Problem Status W/U Status Risk Notes Problem Mood disorder (02996103) Mood disorder (F39) Active confirmed Problem Cigarette smoker (62094413) Cigarette smoker (F17.210) Active confirmed Problem Adenocarcinoma (490436539) Adenocarcinoma (C80.1) 08/15/20 24 Active confirmed Vital Signs Heart Rate 107 /min 12/27/2024 Temperature 98.8 degrees Fahrenheit 08/04/2024 Respiratory Rate 16 /min 12/27/2024 Blood pressure diastolic 80 mm Hg 12/27/2024 Oximetry 97 % 12/27/2024 Height 63 in 12/27/2024 Blood pressure systolic 122 mm Hg 12/27/2024 Weight 200.0 lbs 12/27/2024 BMI 35.42 kg/m2 12/27/2024 Encounters Encounter Location Date Provider Diagnosis Formerly [facility], [facility] [address] [place] [address] 06/09/2024 Ehsan Madrigal Mood disorder F39 ; Callus of foot L84 ; Dizziness, nonspecific R42 ; Fatigue R53.83 ; Bunion M21.619 ; Exposure to potential infection Z20.9 ; Cigarette smoker F17.210 ; Metabolic syndrome E88.810 ; Substance use disorder F19.90 ; Colon cancer screening Z12.11 ; Immunization counseling Z71.89 and Breast cancer screening by mammogram Z12.[address] [place] [address] 07/10/2024 Ehsan Madrigal Lung nodules R91.8 ; Impaired glucose tolerance R73.02 and Encounter for immunization Z23 [address] [address] 08/04/2024 Ehsan Madrigal Lung mass R91.[address] [address] 12/27/2024 Ehsan Madrigal DOMINGO (dyspnea on exertion) R06.09 ; Edema of both feet R60.0 ; Adenocarcinoma C80.1 ; Fatigue R53.83 ; Nutritional counseling Z71.3 ; Screening for diabetes mellitus Z13.1 ; Lipid screening Z13.220 ; Former smoker Z87.891 and Abnormal EKG R94.[address] [address] 12/27/2024 Ehsan Madrigal Screening for diabetes mellitus Z13.1 ; DOMINGO (dyspnea on exertion) R06.09 ; Lipid screening Z13.220 ; Adenocarcinoma C80.1 and Fatigue R53.[address] [address] 12/25/2024 Ehsan Madrigal [address] [address] 06/29/2024 Ehsan Madrigal [address] [address] 07/05/2024 Ehsan Madrigal [address] [address] 07/06/2024 Zenia Fofana [address] [address] 07/17/2024 Ehsan Madrigal [address] [address] 08/15/2024 Ehsan Madrigal Adenocarcinoma C80.[address] [address] 08/17/2024 Ehsan Madrigal [address] [place] [address] 08/23/2024 Ehsan Madrigal Assessments Encounter Date Diagnosis (ICD Code) Assessment Notes Treatment Notes Treatment Clinical Notes Section Notes 06/09/2024 Mood disorder (ICD-10 - F39) CALL DAILY FOR PSYCHIATRY APPT 06/09/2024 Callus of foot (ICD-10 - L84) 07/10/2024 Lung nodules (ICD-10 - R91.8) 07/10/2024 Impaired glucose tolerance (ICD-10 - R73.02) 08/04/2024 Lung mass (ICD-10 - R91.8) 08/15/2024 Adenocarcinoma (ICD-10 - C80.1) 12/27/2024 DOMINGO (dyspnea on exertion) (ICD-10 - R06.09) AVOID SUGAR, FLOUR, SALT. AVOID PROCESSED FOODS. AVOID SODA, FRUIT JUICE, BREADS, POTATO CHIPS, AUSTRALIAN FRIES, FAST FOOD, BOXED FOODS, FROZEN DINNERS. EAT CHICKEN, FISH, TURKEY, GREEN LEAFY VEGETABLES, BERRIES, UNSALTED NUTS, AND OLIVE OIL. AVOID ANIMAL FATS. AVOID RED MEAT. DOMINGO, ORTHOPNEA, EDEMA ALL WORRSOME FOR CHF. ANGINAL EQUIVALENT ALSO A CONSIDERATION. MORE LIKELY DUE TO WT GAIN, DECONDITIONING. POSSIBLE COPD. LACK OF HYPOXIA OR TACHYCARDIA AGAINS PE. CONSIDER PFT IF CARDIAC EVALUATION IS UNREMARKABLE. 12/27/2024 Edema of both feet (ICD-10 - R60.0) DEPENDENT EDEMA VS CHF. 12/27/2024 Screening for diabetes mellitus (ICD-10 - Z13.1) 12/27/2024 DOMINGO (dyspnea on exertion) (ICD-10 - R06.09) 07/10/2024 Encounter for immunization (ICD-10 - Z23) Ordered per standing orders for administering influenza vaccine to adults. 12/27/2024 Adenocarcinoma (ICD-10 - C80.1) LUNG. S/P RT. 06/09/2024 Dizziness, nonspecific (ICD-10 - R42) 06/09/2024 Fatigue (ICD-10 - R53.83) 12/27/2024 Fatigue (ICD-10 - R53.83) 12/27/2024 Lipid screening (ICD-10 - Z13.220) 12/27/2024 Adenocarcinoma (ICD-10 - C80.1) 12/27/2024 Nutritional counseling (ICD-10 - Z71.3) 06/09/2024 Bunion (ICD-10 - M21.619) 06/09/2024 Exposure to potential infection (ICD-10 - Z20.9) 12/27/2024 Screening for diabetes mellitus (ICD-10 - Z13.1) 12/27/2024 Fatigue (ICD-10 - R53.83) 12/27/2024 Lipid screening (ICD-10 - Z13.220) 06/09/2024 Cigarette smoker (ICD-10 - F17.210) CONSIDER NICOTINE GUM SOON AND CHANTIX AFTER PSYCHIATRIC EVALUATION AND TREATMENT. 06/09/2024 Metabolic syndrome (ICD-10 - E88.810) 12/27/2024 Former smoker (ICD-10 - Z87.891) 12/27/2024 Abnormal EKG (ICD-10 - R94.31) INFEROPOSTERIOR Q-WAVES SUGGESTIVE OF OLD INFARCT. SINUS TACHYCARDIA. LAFB. 06/09/2024 Substance use disorder (ICD-10 - F19.90) CONTINUE TO ABSTAIN TO ALL DRUGS 06/09/2024 Colon cancer screening (ICD-10 - Z12.11) 06/09/2024 Immunization counseling (ICD-10 - Z71.89) PREVNAR 20 RSV FLU COVID-19 SHINGRIX (MAY GET THESE AT THE [facility], [facility], OR [facility]) 06/09/2024 Breast cancer screening by mammogram (ICD-10 - Z12.31) Plan Of Treatment Pending Test Test Name Order Date Electrocardiogram (EKG), IH 12/27/2024 Hemoglobin A1c* 12/27/2024 CBC With Differential/Platelet* 12/28/19 25 Lipid Panel* 12/27/2024 CMP 14 Comprehensive Metabolic Panel* TSH Rfx on Abnormal to Free T4 5 Future Test Test Name Order Date Chest X-ray PA and lateral 12/27/2024 Echo doppler exam 12/27/2024 Insurance Providers Payer Name Payer Address Payer Phone Subscriber Number Group Number Insured Name Patient Relationship to Insured Coverage Start Date Coverage End Date MEDICARE PART A [address] [place] [phone] [id number] Palumbo Self - patient is the insured 4 Medical (General) History Surgical History Surgery Date(Month/Year) 3 hysterectomy, total with bilateral salpi wisdom-oophorectomy (BSO) carpal tunnel release eye surgery Hospitalization History Reason Date(Month/Year) MH
--- OUTSIDE RECORDS SUMMARY | 2024-12-27 16:13 | XMS_ITS | Referral Summary ---
Author Organization [facility] Address [address] [place] [address] Care Team Providers Care Auger Machine Offbearer Name Role Phone Ehsan Madrigal MD Primary Care Provider Dontrell Caballero MD Unavailable [phone] Letty Jon NP Unavailable Encounters Date Type Department Care Team Description 11/23/2024 Telephone [facility] Medical Office Building 2 Radiation Oncology [address] [place] [address] Louisa Warren 10/03/2024 Completion of Therapy [facility] Office [facility] 2 Radiation Oncology [address] [place] [address] Dontrell Caballero MD 10/03/2024 Orders Only RAD ONC TREATMENTS Miscellaneous , Not In File 10/03/2024 Orders Only RAD ONC TREATMENTS Miscellaneous , Not In File 10/03/2024 9:45 AM QUALITY PROCESS LEAD Treatment [facility] Medical Office [facility] 2 Radiation Oncology [address] [place] [address] Dontrell Caballero MD 10/02/2024 Orders Only RAD ONC TREATMENTS Miscellaneous , Not In File 10/02/2024 3:30 PM QUALITY PROCESS LEAD Treatment [facility] Medical Office [facility] 2 Radiation Oncology [address] [place] [address] Dontrell Caballero MD 09/29/2024 OTV [facility] Medical Office [facility] 2 Radiation Oncology [address] [place] [address] Dontrell Caballero MD Adenocarcinoma (HCC) (Primary Dx) 09/29/2024 Orders Only RAD ONC TREATMENTS Miscellaneous , Not In File 09/29/2024 9:45 AM QUALITY PROCESS LEAD Treatment [facility] Medical Office Building 2 Radiation Oncology [address] [place] [address] Dontrell Caballero MD from Last 3 Months Allergies No known active allergies Medications ibuprofen 200 mg tab/cap Take by mouth every 6 (six) hours as needed for pain Active Active Problems Patient Care Coordination No te Formatting of this note migh t be different from the original. Letty Jon NP 08/26/20242045 This is a 64-year-old female patient presenting to the clinic today in consultation for a mass to the right upper lobe of the lung. She was referred to the clinic by Dr. Ehsan Madrigal. She has a past medical history significant for mental illness. She has never been a smoker. She underwent a CT of the chest lung cancer screening on 06/30/2024 at [facility] which reveals: Suspected 4 mm nodule right lung apex with possible focal central cavitation. There is somewhat amorphous GGO peripherally at the left lung apex posteriorly additional focal irregular nodule showing ground-glass opacity noted peripherally and in the left upper lobe. There was a 2.4 x 0.6 cm nodule with probable focal cavitation or cystic bronchiectasis in the anteromedial right upper lobe. Probable moderate to advanced emphysema. Lung RADS 4b very suspicious. She underwent a PET scan on 08/01/2024 at [facility] which reveals: 2.7 x 1.6 cm nodule in the right lung upper lobe with increased avidity, consistent with primary bronchogenic carcinoma. CT-guided biopsy is recommended. Pulmonary nodules measuring up to 7 mm, probably benign. Noncontrast low-dose CT chest is recommended in 6 months. Pathology from 08/11/2024 lung biopsy reveals adenocarcinoma. PFTs performed on 08/07/2024 at [facility] revealed an FEV 1 of 68% predicted and a DLCO of 88% predicted. All imaging available on file for review. She is here for further surgical evaluation and discussion. Problem Noted Date Diagnosed Date Malignant neoplasm of upper lobe of right lung 1 11/15/2023 Cancer Staging:Clinical stage from 09/14/2024:Stage IA3(cT1c, cN0, cM0) - Signed by Dontrell Caballero MD on 09/14/2024 Cigarette smoker 08/28/2024 Mood disorder 08/28/2024 Adenocarcinoma 08/15/2024 Social History Tobacco Use Types Packs/Day Years Used Date Smoking Tobacco: Former Cigarettes Tobacco Cessation:Counseling Given: Not Answered AUDIT-C Answer Date Recorded Frequency of Alcohol Consumption Not on file 08/28/2024 Q2: How many drinks containi ng alcohol do you have on a typical day when you are drinking? Patient does not drink Frequency of Binge Drinking Not on file 08/11 Comments Unknown Sex and Gender Information Value Date Recorded Sex Assigned at Not on file Legal Sex Female 6:30 PM QUALITY PROCESS LEAD Gender Identity Not on file Sexual Orientation Not on file Last Filed Vital Signs Vital Sign Reading Time Taken Comments Blood Pressure 133/82 09/29/2024 10:24 AM QUALITY PROCESS LEAD Pulse 93 09/29/2024 10:24 AM QUALITY PROCESS LEAD Temperature 37.2 C (99 F) 08/28/2024 3:37 PM QUALITY PROCESS LEAD Respiratory Rate 18 08/28/2024 3:37 PM QUALITY PROCESS LEAD Oxygen Saturation 92% 09/29/2024 10:24 AM QUALITY PROCESS LEAD Inhaled Oxygen Concentration - - Weight 81.6 kg (180 lb) 09/29/2024 10:24 AM QUALITY PROCESS LEAD Height 157.5 cm (5' 2 ) 08/28/2024 3:37 PM QUALITY PROCESS LEAD Body Mass Index 32.92 08/28/2024 3:37 PM QUALITY PROCESS LEAD Plan of Treatment Not on file Procedures Procedure Name Priority Date/Time Associated Diagnosis Comments RAD ONC ARIA COURSE SUMMARY 10/03/2024 3:20 PM QUALITY PROCESS LEAD RAD ONC ARIA SESSION SUMMARY 10/03/2024 9:57 AM QUALITY PROCESS LEAD RAD ONC ARIA SESSION SUMMARY 10/02/2024 3:54 PM QUALITY PROCESS LEAD RAD ONC ARIA SESSION SUMMARY 09/29/2024 10:08 AM QUALITY PROCESS LEAD from Last 3 Months Results * RAD ONC ARIA COURSE SUMMARY (10/03/2024 3:20 PM QUALITY PROCESS LEAD) Course Name C1_SBRT RUL ARIA Course Plan Date 09/20/2024 1:34 PM ARIA Elapsed Days 8 ARIA Treatment Start Date 09/25/2024 ARIA Treatment Site SBRT RUL LUNG ARIA Dose Given To Date (cGy) 5,500 ARIA Session Dosage Given (cGy) 0 ARIA Plan ID SBRT RUL LUNG ARIA Fractions Treated 5 ARIA Prescribed Dose Per Fraction (cGy) 1,100 ARIA Prescribed Total Dose (cGy) 5,500 ARIA 10/03/2024 3:20 PM QUALITY PROCESS LEAD us Not In File Miscellaneous RADIATION ONCOLOGY ORD ERABLES Final Result ARIA * RAD ONC ARIA SESSION SUMMARY (10/03/2024 9:57 AM QUALITY PROCESS LEAD) Course Name C1_SBRT RUL ARIA Course Plan Date 09/20/2024 1:34 PM ARIA Elapsed Days 8 ARIA Treatment Start Date 09/25/2024 ARIA Treatment Site SBRT RUL LUNG ARIA Dose Given To Date (cGy) 5,500 ARIA Session Dosage Given (cGy) 1,100 ARIA Plan ID SBRT RUL LUNG ARIA Fractions Treated 5 ARIA Prescribed Dose Per Fraction (cGy) 1,100 ARIA Prescribed Total Dose (cGy) 5,500 ARIA 10/03/2024 9:57 AM QUALITY PROCESS LEAD us Not In File Miscellaneous RADIATION ONCOLOGY ORD ERABLES Final Result ARIA * RAD ONC ARIA SESSION SUMMARY (10/02/2024 3:54 PM QUALITY PROCESS LEAD) Course Name C1_SBRT RUL ARIA Course Plan Date 09/20/2024 1:34 PM ARIA Elapsed Days 7 ARIA Treatment Start Date 09/25/2024 ARIA Treatment Site SBRT RUL LUNG ARIA Dose Given To Date (cGy) 4,400 ARIA Session Dosage Given (cGy) 1,100 ARIA Plan ID SBRT RUL LUNG ARIA Fractions Treated 4 ARIA Prescribed Dose Per Fraction (cGy) 1,100 ARIA Prescribed Total Dose (cGy) 5,500 ARIA 10/02/2024 3:54 PM QUALITY PROCESS LEAD us Not In File Miscellaneous RADIATION ONCOLOGY ORD ERABLES Final Result TOMMY * RAD ONC ARIA SESSION SUMMARY (09/29/2024 10:08 AM QUALITY PROCESS LEAD) Course Name C1_SBRT RUL_2023 ARIA Course Plan Date 09/20/2024 1:34 PM ARIA Elapsed Days 4 ARIA Treatment Start Date 09/25/2024 ARIA Treatment Site SBRT RUL LUNG ARIA Dose Given To Date (cGy) 3,300 ARIA Session Dosage Given (cGy) 1,100 ARIA Plan ID SBRT RUL LUNG ARIA Fractions Treated 3 ARIA Prescribed Dose Per Fraction (cGy) 1,100 ARIA Prescribed Total Dose (cGy) 5,500 ARIA 09/29/2024 10:0 8 AM QUALITY PROCESS LEAD us Not In File Miscellaneous RADIATION ONCOLOGY ORD ERABLES Final Result Performing Organization Address City[facility] Co de Phone Number TOMMY from Last 3 Months Insurance MEDICARE IDPA MEDICARE [facility] Address: [address] [address] [place] [address] [facility] Care Teams Auger Machine Offbearer Relationship Specialty Start Date End Date Ehsan Madrigal MD [address] [place] [address] [place] [address] PCP - General Internal Medicine 08/10/24 Dontrell Caballero MD [address] [place] [address] Radiation Oncologist Radiation Oncology 08/30/24 Letty Jon, VIDEO SYSTEMS ENGINEER [address] [facility] [id number] [place] [address] Nurse Practitioner 08/30/24
--- OUTSIDE RECORDS SUMMARY | 2024-12-27 16:13 | XMS_ITS ---
Author Organization [facility] Address [address] [place] [address] Care Team Providers Care Packaging Sales Consultant Name Role Phone Ehsan Madrigal Primary Care Provider Allergies No Known Allergies REASON FOR VISIT Tired and leg pain w/swelling Social History Tobacco Use: Social History Observation Description Date Details (start date - stop date) Former Smoker NA - NA Sex Assigned At : Social History Observation Description Sex Assigned At Female Tobacco Control (Standard) Question Answer Notes Tobacco use: Former smoker Vital Signs Weight 200.0 lbs 12/27/2024 Height 63 in 12/27/2024 BMI 35.42 kg/m2 12/27/2024 Blood pressure systolic 122 mm Hg 12/28/19 25 Blood pressure diastolic 80 mm Hg 025 Heart Rate 107 /min 12/27/2024 Oximetry 97 % 12/27/2024 Respiratory Rate 16 /min 12/27/2024 Encounters Encounter Location Date Provider Diagnosis [address] [address] 12/27/2024 Ehsan Madrigal DOMINGO (dyspnea on exertion) R06.09 ; Edema of both feet R60.0 ; Adenocarcinoma C80.1 ; Fatigue R53.83 ; Nutritional counseling Z71.3 ; Screening for diabetes mellitus Z13.1 ; Lipid screening Z13.220 ; Former smoker Z87.891 and Abnormal EKG R94.31 Assessments Encounter Date Diagnosis (ICD Code) Assessment Notes Treatment Notes Treatment Clinical Notes Section Notes 12/27/2024 DOMINGO (dyspnea on exertion) (ICD-10 - R06.09) AVOID SUGAR, FLOUR, SALT. AVOID PROCESSED FOODS. AVOID SODA, FRUIT JUICE, BREADS, POTATO CHIPS, ROMANSH FRIES, FAST FOOD, BOXED FOODS, FROZEN DINNERS. EAT CHICKEN, FISH, TURKEY, GREEN LEAFY VEGETABLES, BERRIES, UNSALTED NUTS, AND OLIVE OIL. AVOID ANIMAL FATS. AVOID RED MEAT. ODMINGO, ORTHOPNEA, EDEMA ALL WORRSOME FOR CHF. ANGINAL EQUIVALENT ALSO A CONSIDERATION. MORE LIKELY DUE TO WT GAIN, DECONDITIONING. POSSIBLE COPD. LACK OF HYPOXIA OR TACHYCARDIA AGAINS PE. CONSIDER PFT IF CARDIAC EVALUATION IS UNREMARKABLE. 12/27/2024 Edema of both feet (ICD-10 - R60.0) DEPENDENT EDEMA VS CHF. 12/27/2024 Adenocarcinoma (ICD-10 - C80.1) LUNG. S/P RT. 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 SINUS TACHYCARDIA. LAFB. Plan Of Treatment Treatment Notes Assessment Notes DOMINGO (dyspnea on exertion) AVOID SUGAR, F LOUR, SALT. AVOID PROCESSED FOODS. AVOID SODA, FRUIT JUICE, BREADS, POTATO CHIPS, ROMANSH FRIES, FAST FOOD, BOXED FOODS, FROZEN DINNERS. EAT CHICKEN, FISH, TURKEY, GREEN LEAFY VEGETABLES, BERRIES, UNSALTED NUTS, AND OLIVE OIL. AVOID ANIMAL FATS. AVOID RED MEAT. Pending Test Test Name Order Date Electrocardiogram (EKG), IH 12/27/2024 Hemoglobin A1c* 12/27/2024 CBC With Differential/Platelet* 12/28/19 25 Lipid Panel* 12/27/2024 CMP 14 Comprehensive Metabolic Panel* TSH Rfx on Abnormal to Free T4 5 Future Test Test Name Order Date Chest X-ray PA and lateral 12/27/2024 Echo doppler exam 12/27/2024 Next Appt Details Follow Up: 2 Weeks, Reason: DOMINGO, LAB & XR RESULTS Progress Notes * Jude MOCTEZUMAOB:1960 (64 yo F)Acc No.[id number]:12/27/2024 Progress Notes Patient: Cheyenne DURAN Provider: Dixie Madrigal :1960 A ge:64 Y S ex:Female Date:12/27/2024 Address:[address] [place] [address], [place], [id number] Check In:12:56 PM DIRECTOR SPECIAL EDUCATION Subjective: * Chief Complaints: * T ired and leg pain w/swelling * HPI: I nterim History: QUIT SMOKING. GAINED 32 POUNDS. NEW ONSET DOMINGO WITH WALKING 1/2-1 BLOCK. NO CHEST PAIN. LEGS SWELLING. ORTHOPNEA. NO CHANGE IN URINATION. NOCTURIA X 3-4 . WHEEZES AT NIGHT. NO HX OF ASTHMA CHILD. Emergency room visit N o. Was hospitalized N o. D epression Screening: PHQ-9 L ittle interest or pleasure in doing things?Several days F eeling down, depressed, or hopeless S everal days T rouble falling or staying asleep, or sleeping too much N early every day F eeling tired or having little energy N early every day P oor appetite or overeating N early every day F eeling bad about yourself or that you are a failure, or have let yourself or your family down M ore than half the days T rouble concentrating on things, such as reading the newspaper or watching television N ot at all M oving or speaking so slowly that other people could have noticed; or the opposite, being so fidgety or restless that you have been moving around a lot more than usual N ot at all T houghts that you would be better off or of hurting yourself in some way N ot at all T otal Score 1 3 I nterpretation M oderate Depression Intervention D epression Screening Findings P ositive F ollow-Up for Depression P atient refused intervention S creening: [place] Suicide Severity Rating Scale (LF) D o you want to initiate with S creener form 1 . Wish to be : Have you wished you were or wished you could go to sleep and not wake up? N o 2 . Suicidal Thoughts: Have you actually had any thoughts of killing yourself? N o 6 . Suicide Behavior Question: Have you ever done anything,started to do anything, or prepared to end your life? N o I nterpretation: L ow Risk C SSRS Interpretation and Follow Up Plan: CSSRS Interpretation and Follow Up Plan C SSRS Screen documented using SF Y es R isk Disposition from SF L ow - No Follow Up Plan Required F ollow Up Plan N o Follow Up Plan required at this time. D epression Screening PHQ9: c/o PHQ-2 (2015 Edition). PHQ9 D epression Screening Finding P ositive F ollow-up Depression R eferral placed * ROS: B asic ROS: Admits S hortness of breath. D enies C hest pain.?Admits F luid Accumulation in the legs. * Medical History: * Surgical History: 3 hysterectomy, total with bilateral salpingo-oophorectomy (BSO) carpal tunnel release eye surgery * Hospitalization/Major Diagno stic Procedure: M H * Family History: F ather: , Heart attack. M other: , Stroke. 1 brother(s) , 2 sister(s) . 2 son(s) , 1 daughter(s) . . * Social History: P [facility] Social History: L iving Arrangement L iving Arrangement: Independent Living , Is this a supportive environment? Yes .. Alcohol Use A lcohol Use Frequency: N ever Illicit Substance Usage I llicit Substance Usage: N o Employment Status E mployment Status: Unemployed .. T obacco Use: T obacco Control (Standard) T obacco use: F ormer smoker M iscellaneous: M ethod of learning P referred method of learning: D iscussion * Medications: D iscontinuedNicotine Polacrilex 4 MG Gum 1 piece chew for 30 minutes as needed Mouth/Throat every 1-2 hours LORazepam 0.5 MG Tablet 1 tablet Orally ONCE As needed one hour prior to PET/CT scanLORazepam 2 MG Tablet 1 tablet one hour prior to biopsy Orally once Discontinued Nicotine Polacrilex 4 MG Gum 1 piece chew for 30 minutes as needed Mouth/Throat every 1-2 hours Discontinued LORazepam 0.5 MG Tablet 1 tablet Orally ONCE As needed one hour prior to PET/CT scanDiscontinued LORazepam 2 MG Tablet 1 tablet one hour prior to biopsy Orally once * Allergies: N .K.D.A.no[Allergies Verified] Objective: * Vitals: I nitials: dt, Wt:200.0, Ht: 63, BMI:35.42, BP:122/80, HR:107, Oxygen sat %:97, RR:16, LMP: n/a, Pain scale:0. * Examination: G eneral Examination: GENERAL APPEARANCE: w ell developed, well nourished, in no acute distress. HEAD: n ormocephalic, atraumatic. EYES: P ERRLA, sclera and conjunctiva clear. EARS External ears intact. NOSE: n mike patent, no lesions, septum intact. ORAL CAVITY: m ucosa moist. THROAT: n o erythema, no exudate, pharynx normal. NECK/THYROID: n o JVD, no goiter. SKIN: w arm and dry, no rashes. HEART: r egular rate and rhythm, no murmurs. LUNGS: r espirations regular and easy, clear to auscultation bilaterally. ABDOMEN: b owel sounds present, soft, nontender, nondistended, no masses palpable, no organomegaly . MUSCULOSKELETAL: n o joint deformity, swelling, redness, or warmth , JAMES upper and lower extremities. EXTREMITIES: T RACE PITTING EDEMA DISTAL PRETIBIAL BILATERALLY. NEUROLOGIC: c ranial nerves 2-12 grossly intact. Assessment: * Assessment: 1. E devyn of both feet - R60.0 2 . D OE (dyspnea on exertion) - R06.09 (Primary) 3 . A denocarcinoma - C80.1 4 . F atigue - R53.83 5 . N utritional counseling - Z71.3 6 . S creening for diabetes mellitus - Z13.1 7 . L ipid screening - Z13.220 8 . F ormer smoker - Z87.891 9 . A bnormal EKG - R94.31 Plan: * Treatment: 2. E devyn of both feet I maging: Chest X-ray PA and lateral (Ordered for 12/27/2024) I maging: Echo doppler exam (Ordered for 12/27/2024) Clinical Notes: DEPENDENT EDEMA VS CHF. 3. A denocarcinoma L AB: CMP 14 Comprehensive Metabolic Panel* (Ordered for 12/27/2024) (Collection Date & Time - 12/27/2024) Clinical Notes: LUNG. S/P RT. 4. F atigue L AB: TSH Rfx on Abnormal to Free T4 (Ordered for 12/27/2024) (Collection Date & Time - 12/27/2024) 5. S creening for diabetes mellitus L AB: Hemoglobin A1c* (Ordered for 12/27/2024) (Collection Date & Time - 12/27/2024) 6. L ipid screening L AB: Lipid Panel* (Ordered for 12/27/2024) (Collection Date & Time - 12/27/2024) 7. A bnormal EKG I maging: Echo doppler exam (Ordered for 12/27/2024) Clinical Notes: INFEROPOSTERIOR Q-WAVES SUGGESTIVE OF OLD INFARCT. SINUS TACHYCARDIA. LAFB. * Recommended Wellness and Pre vention Guidelines: * S tatus A lert L ast Done N ext Due A ction Taken N ONCOMPLIANT A lcohol use screening - 0 12/27/2024 - N ONCOMPLIANT B reast cancer screening 0 06/09/2024 0 12/27/2024 - N ONCOMPLIANT C holesterol screen (genl pop) 0 06/27/2024 0 12/27/2024 - N ONCOMPLIANT C olorectal cancer screening - 0 12/27/2024 - N ONCOMPLIANT D epression followup 1 0 12/27/2024 - N ONCOMPLIANT P neumococcal vaccine - 0 12/27/2024 - * Procedure Codes: 3 008F BODY MASS INDEX [id number] MEDICAL NUTRITION, INDIV, [id number] TOBACCO [id number] ELECTROCARDIOGRAM, TRACING, Modifiers: GE [id number] [facility] VISIT ESTABLISHED PATIENT * Preventive Medicine: Counseling: C are goal follow-up plan: BMI management provided Y es Above Normal BMI Follow-up L ifestyle education regarding diet * Follow Up: 2 Weeks (Reason: DOMINGO, LAB & XR RESULTS) * * Sign off status: Completed true * Provider: Dixie Madrigal Date: 0 12/27/2024 Generated for Milton landeros/Dash/Jeff on: 0 12/27/2024 04:13 PM CDT History and Physical Notes * HPI (History of Present Illness) Category Sub-Category Detail Notes Category Not es Interim History Was hospitalized No Emergency room visit No Depression Screening PHQ9 PHQ9 Depression Screening Finding: Positive Follow-up Depression: Referral placed Depression Screening PHQ-9 Little inte rest or pleasure in doing things: Several days Feeling down, depressed, or hopeless: Se veral days Trouble falling or staying asleep, or sl eeping too much: Nearly every day Feeling tired or having little energy: N early every day Poor appetite or overeating: Nearly ever y day Feeling bad about yourself o r that you are a failure, or have let yourself or your family down: More than half the days Trouble concentrating on thi ngs, such as reading the newspaper or watching television: Not at all Moving or speaking so slowly that other people could have noticed; or the opposite, being so fidgety or restless that you have been moving around a lot more than usual: Not at all Thoughts that you would be b jorge a off or of hurting yourself in some way: Not at all Total Score: 13 Interpretation: Moderate Depression Intervention Depression Screening Findings: P ositive Follow-Up for Depression: Patient refuse d intervention Screening [place] Suicide Sev erity Rating Scale (LF) Do you want to initiate with: Screener form 1. Wish to be : Have you wished you were or wished you could go to sleep and not wake up?: No 2. Suicidal Thoughts: Have you actually had any thoughts of killing yourself?: No 6. Suicide Behavior Question: Have you ever done anything,started to do anything, or prepared to end your life?: No Interpretation:: Low Risk CSSRS Interpretation and Follow Up Plan CSSRS Interpretation and Follow Up Plan CSSRS Screen documented using SF: Yes Risk Disposition from SF: Low - No Follo w Up Plan Required Follow Up Plan: No Follow Up Plan requir ed at this time. Examination Category Sub-Category Detail Notes Category Not es General Examination GENERAL APPEARANCE: well dev eloped, well nourished, in no acute distress HEAD: normocephalic, atrau matic EYES: PERRLA, sclera and c onjunctiva clear EARS External ears intact NOSE: nares patent, no les ions, septum intact THROAT: no erythema, no exud ate, pharynx normal NECK/THYROID: no JVD, no goiter HEART: regular rate and rhy thm, no murmurs LUNGS: respirations regular and easy, clear to auscultation bilaterally ABDOMEN: bowel sounds present , soft, nontender, nondistended, no masses palpable, no organomegaly NEUROLOGIC: cranial nerves 2-12 grossly intact SKIN: warm and dry, no sola hes EXTREMITIES: TRACE PITTING EDEMA DISTAL PRETIBIAL BILATERALLY MUSCULOSKELETAL: no joint deformity, swelling, redness, or warmth , JAMES upper and lower extremities ORAL CAVITY: mucosa moist
--- OUTSIDE RECORDS SUMMARY | 2024-12-27 16:13 | XMS_ITS ---
Author Organization [facility] Address [address] [place] [address] Care Team Providers Care Traffic Sergeant Name Role Phone Ehsan Madrigal MD Primary Care Provider [phone] Dontrell Caballero MD Unavailable [phone] Letty Jon NP Unavailable [phone] Active Problems Patient Care Coordination No te [...] chest lung cancer screening on 06/30/2024 at [facility] which reveals: Suspected 4 mm nodule right [...] underwent a PET scan on 08/01/2024 at [facility] which reveals: 2.7 x 1.6 cm nodule in the right lung upper lobe with increased avidity, consistent with primary bronchogenic carcinoma. CT-guided biopsy is recommended. Pulmonary nodules measuring up to 7 mm, probably benign. Noncontrast low-dose CT chest is recommended in 6 months. Pathology from 08/11/2024 lung biopsy reveals adenocarcinoma. PFTs performed on 08/07/2024 at [facility] revealed an FEV 1 of 68% predicted [...] smoker 08/28/2024 Mood disorder 08/28/2024 Adenocarcinoma 08/15/2024 Current Treatment and Therapy Plans No current plan information found. Past Treatment and Therapy Plans No past plan information found. Radiation Treatments (No Episode) * Course C1_SBRT RUL_202309/25/2024 - 10/03/2024 Treatment Period Energy Fraction Dose Fractions Total Dose Plans Planned SBRT RUL LUNG 09/25/2024 - 10/03/2024 1,100 5 / 5,500 Reference Points Delivered SBRT RUL LUNG 09/25/2024 - 10/03/2024 5,500
--- OUTSIDE RECORDS SUMMARY | 2024-12-27 16:13 | XMS_ITS | Clinical Summary ---
Author Organization [facility] Address [address] [place] [address] Care Team Providers Care Chuck Splitter Name Role Phone Ehsan Madrigal MD Primary Care Provider [phone] Dontrell Caballero MD Unavailable [phone] Letty Jon NP Unavailable [phone] Allergies No known active allergies Medications ibuprofen [...] chest lung cancer screening on 06/30/2024 at [facility] which reveals: Suspected 4 mm nodule [...] underwent a PET scan on 08/01/2024 at [facility] which reveals: 2.7 x 1.6 cm nodule in the right lung upper lobe with increased avidity, consistent with primary bronchogenic carcinoma. CT-guided biopsy is recommended. Pulmonary nodules measuring up to 7 mm, probably benign. Noncontrast low-dose CT chest is recommended in 6 months. Pathology from 08/11/2024 lung biopsy reveals adenocarcinoma. PFTs performed on 08/07/2024 at [facility] revealed an FEV 1 of 68% [...] smoker 08/28/2024 Mood disorder 08/28/2024 Adenocarcinoma 08/15/2024 Encounters Date Type Department Care Team Description 11/23/2024 Telephone [facility] Building 2 Radiation Oncology [address] [place] [id number] Louisa Warren 10/03/2024 9:45 AM CARDIOVASCULAR LAB DIRECTOR Treatment [facility] 2 Radiation Oncology [address] [place] [id number] Dontrell Cbaallero MD 10/03/2024 Completion of Therapy [facility] Office Building 2 Radiation Oncology [address] [place] [id number] Dontrell Caballero MD 10/03/2024 Orders Only RAD ONC TREATMENTS Miscellaneous , Not In File 10/03/2024 Orders Only RAD ONC TREATMENTS Miscellaneous , Not In File 10/02/2024 3:30 PM CARDIOVASCULAR LAB DIRECTOR Treatment [facility] Building 2 Radiation Oncology [address] [place] [id number] Dontrell Caballero MD 10/02/2024 Orders Only RAD ONC TREATMENTS Miscellaneous , Not In File 09/29/2024 9:45 AM CARDIOVASCULAR LAB DIRECTOR Treatment [facility] Medical Office [facility] 2 Radiation Oncology [address] [place] [address] Dontrell Caballero MD 09/29/[address] [facility] Medical Office Building 2 Radiation Oncology [address] [place] [address] [id number] Dontrell Caballero MD Adenocarcinoma (HCC) (Primary Dx) 09/29/2024 Orders Only RAD ONC TREATMENTS Miscellaneous , Not In File from Last 3 Months Surgical History Surgery Date Site/Laterality Comments SECTION 11/10/77, 08/25/79, 08/05/82 HYSTERECTOMY 10/11/1992 - 10/10/1993 around 30 years ago CARPAL TUNNEL RELEASE Bilateral 1989 had both wrist done in this year EYE MUSCLE SURGERY back when was in third grade Medical History Medical History Date Comments COPD (chronic obstructive pulmonary disease) (HC C) Bipolar 1 disorder (HCC) Emphysema lung (HCC) Bronchitis Pneumonia Depression Anxiety Arthritis Family History Medical History Relation Name Comments Breast cancer Cousin cousin Diabetes Father heart condition Father Pancreatic cancer Maternal Grandmother Breast cancer Mother Thyroid cancer Mother all over cancer Other aunt [place] syndrome Sister 1 Gale heart condition Sister 1 Gale heart condition Sister 2 Relation Name Status Comments Cousin cousin Alive Father Maternal Grandmother Mother Other aunt Sister 1 Gale Sister 2 Alive Social History Tobacco Use Types Packs/Day Years [...] on file Legal Sex Female 6:30 PM CARDIOVASCULAR LAB DIRECTOR Gender Identity Not on file Sexual Orientation Not on file Obstetrics History Last Filed Vital Signs Vital Sign Reading Time Taken Comments Blood Pressure 133/82 09/29/2024 10:24 AM CARDIOVASCULAR LAB DIRECTOR Pulse 93 09/29/2024 10:24 AM CARDIOVASCULAR LAB DIRECTOR Temperature 37.2 C (99 F) 08/28/2024 3:37 PM CARDIOVASCULAR LAB DIRECTOR Respiratory Rate 18 08/28/2024 3:37 PM CARDIOVASCULAR LAB DIRECTOR Oxygen Saturation 92% 09/29/2024 10:24 AM CARDIOVASCULAR LAB DIRECTOR Inhaled Oxygen Concentration - - Weight 81.6 kg (180 lb) 09/29/2024 10:24 AM CARDIOVASCULAR LAB DIRECTOR Height 157.5 cm (5' 2 ) 08/28/2024 3:37 PM CARDIOVASCULAR LAB DIRECTOR Body Mass Index 32.92 08/28/2024 3:37 PM CARDIOVASCULAR LAB DIRECTOR Plan of Treatment Health Maintenance Due Date Last Done Comments Breast Cancer Screening-Mammogram 1960 Colon Cancer Screening-Colonoscopy 1960 Depression Screening 1960 Hepatitis C Screening 1960 Osteoporosis Screening-Bone Density Scan 1960 Hepatitis B Screening 1976 Pneumococcal vaccine 65+ (1 of 2 - PCV) 1977 Zoster Vaccine (1 of 2) 1977 DTaP/Tdap/Td Vaccine (3 - Tdap) 07/30/2008 07/30/1998, 06/02/1997, 11/18/1996 Well Visit 65+ 2023 Covid-19 Vaccine (5 - Pfizer risk season) 2025 07/10/2024, 08/14/2021, 11/11/2020, Additional history exists Fall Risk Assessment 09/14/2025 09/14/2024 Influenza Vaccine Completed 07/10/2024 Procedures Procedure Name Priority Date/Time Associated Diagnosis Comments RAD ONC ARIA COURSE SUMMARY 10/03/2024 3:20 PM CARDIOVASCULAR LAB DIRECTOR RAD ONC ARIA SESSION SUMMARY 10/03/2024 9:57 AM CARDIOVASCULAR LAB DIRECTOR RAD ONC ARIA SESSION SUMMARY 10/02/2024 3:54 PM CARDIOVASCULAR LAB DIRECTOR RAD ONC ARIA SESSION SUMMARY 09/29/2024 10:08 AM CARDIOVASCULAR LAB DIRECTOR from Last 3 Months Results * RAD ONC ARIA COURSE SUMMARY (10/03/2024 3:20 PM CARDIOVASCULAR LAB DIRECTOR) Course Name C1_SBRT RUL_2023 ARIA Course Plan [...] Dose (cGy) 5,500 ARIA 10/03/2024 3:20 PM CARDIOVASCULAR LAB DIRECTOR us Not In File Miscellaneous RADIATION ONCOLOGY ORD ERABLES Final Result Performing Organization Address City/[facility]/ZIP Co de Phone Number TOMMY * RAD ONC ARIA SESSION SUMMARY (10/03/2024 9:57 AM CARDIOVASCULAR LAB DIRECTOR) Course Name C1_SBRT RUL_2023 ARIA Course Plan [...] Dose (cGy) 5,500 ARIA 10/03/2024 9:57 AM CARDIOVASCULAR LAB DIRECTOR us Not In File Miscellaneous RADIATION ONCOLOGY ORD ERABLES Final Result Performing Organization Address [facility] de Phone Number TOMMY * RAD ONC ARIA SESSION SUMMARY (10/02/2024 3:54 PM CARDIOVASCULAR LAB DIRECTOR) Course Name C1_SBRT RUL_2023 ARIA Course Plan [...] Dose (cGy) 5,500 ARIA 10/02/2024 3:54 PM CARDIOVASCULAR LAB DIRECTOR us Not In File Miscellaneous RADIATION ONCOLOGY ORD ERABLES Final Result TOMMY * RAD ONC ARIA SESSION SUMMARY (09/29/2024 10:08 AM CARDIOVASCULAR LAB DIRECTOR) Course Name C1_SBRT RUL_2023 ARIA Course Plan [...] (cGy) 5,500 ARIA 09/29/2024 10:0 8 AM CARDIOVASCULAR LAB DIRECTOR us Not In File Miscellaneous RADIATION ONCOLOGY ORD ERABLES Final Result TOMMY from Last 3 Months Insurance MEDICARE IDSC MEDICARE IDPA Care Teams Chuck Splitter Relationship Specialty Start Date End Date Ehsan Madrigal MD [address] [place] [address] PCP - General Internal Medicine 08/10/24 Dontrell Caballero MD [address] [place] [id number] Radiation Oncologist Radiation Oncology 08/30/24 Letty Jon NP [id number] [place] [address] Nurse Practitioner 08/30/24
--- OUTSIDE RECORDS SUMMARY | 2024-12-27 16:49 | XMS_ITS | Referral Summary ---
Author Organization [facility] Address [address] [place] [address] Care Team Providers Care Nutrition Intern Name Role Phone Ehsan Madrigal MD Primary Care Provider Dontrell Caballero MD Unavailable [phone] Letty Jon NP Unavailable Encounters Date Type Department Care Team Description 11/23/2024 Telephone [facility] Medical Office Building 2 Radiation Oncology [address] [place] [id number] Louisa Warren 10/03/2024 Completion of Therapy [facility] Office [facility] 2 Radiation Oncology [address] [place] [address] Dontrell Caballero MD 10/03/2024 Orders Only RAD ONC TREATMENTS Miscellaneous , Not In File 10/03/2024 Orders Only RAD ONC TREATMENTS Miscellaneous , Not In File 10/03/2024 9:45 AM ASSISTANCE COORDINATOR Treatment [facility] Medical Office [facility] 2 Radiation Oncology [address] [place] [address] Dontrell Caballero MD 10/02/2024 Orders Only RAD ONC TREATMENTS Miscellaneous , Not In File 10/02/2024 3:30 PM ASSISTANCE COORDINATOR Treatment [facility] Medical Office [facility] 2 Radiation Oncology [address] [place] [address] Dontrell Caballero MD 09/29/2024 OTV [facility] Medical Office [facility] 2 Radiation Oncology [address] [place] [address] Dontrell Caballero MD Adenocarcinoma (HCC) (Primary Dx) 09/29/2024 Orders Only RAD ONC TREATMENTS Miscellaneous , Not In File 09/29/2024 9:45 AM ASSISTANCE COORDINATOR Treatment [facility] Medical Office Building 2 Radiation Oncology [address] [place] [address] Dotnrell Caballero MD from Last 3 Months Allergies [...] chest lung cancer screening on 06/30/2024 at [facility] which reveals: Suspected 4 mm nodule [...] underwent a PET scan on 08/01/2024 at [facility] which reveals: 2.7 x 1.6 cm nodule in the right lung upper lobe with increased avidity, consistent with primary bronchogenic carcinoma. CT-guided biopsy is recommended. Pulmonary nodules measuring up to 7 mm, probably benign. Noncontrast low-dose CT chest is recommended in 6 months. Pathology from 08/11/2024 lung biopsy reveals adenocarcinoma. PFTs performed on 08/07/2024 at [facility] revealed an FEV 1 of 68% predicted and a DLCO of 88% predicted. All imaging available on file for review. She is here for further surgical evaluation and discussion. Problem Noted Date Diagnosed Date Personal history of radiation therapy 12/27/2024 Malignant neoplasm of upper lobe of right [...] on file Legal Sex Female 6:30 PM ASSISTANCE COORDINATOR Gender Identity Not on file Sexual Orientation Not on file Last Filed Vital Signs Vital Sign Reading Time Taken Comments Blood Pressure 133/82 09/29/2024 10:24 AM ASSISTANCE COORDINATOR Pulse 93 09/29/2024 10:24 AM ASSISTANCE COORDINATOR Temperature 37.2 C (99 F) 08/28/2024 3:37 PM ASSISTANCE COORDINATOR Respiratory Rate 18 08/28/2024 3:37 PM ASSISTANCE COORDINATOR Oxygen Saturation 92% 09/29/2024 10:24 AM ASSISTANCE COORDINATOR Inhaled Oxygen Concentration - - Weight 81.6 kg (180 lb) 09/29/2024 10:24 AM ASSISTANCE COORDINATOR Height 157.5 cm (5' 2 ) 08/28/2024 3:37 PM ASSISTANCE COORDINATOR Body Mass Index 32.92 08/28/2024 3:37 PM ASSISTANCE COORDINATOR Plan of Treatment Not on file Procedures Procedure Name Priority Date/Time Associated Diagnosis Comments RAD ONC ARIA COURSE SUMMARY 10/03/2024 3:20 PM ASSISTANCE COORDINATOR RAD ONC ARIA SESSION SUMMARY 10/03/2024 9:57 AM ASSISTANCE COORDINATOR RAD ONC ARIA SESSION SUMMARY 10/02/2024 3:54 PM ASSISTANCE COORDINATOR RAD ONC ARIA SESSION SUMMARY 09/29/2024 10:08 AM ASSISTANCE COORDINATOR from Last 3 Months Results * RAD ONC ARIA COURSE SUMMARY (10/03/2024 3:20 PM ASSISTANCE COORDINATOR) Course Name C1_SBRT RUL_2023 ARIA Course Plan [...] Dose (cGy) 5,500 ARIA 10/03/2024 3:20 PM ASSISTANCE COORDINATOR us Not In File Miscellaneous RADIATION ONCOLOGY ORD ERABLES Final Result ARIA * RAD ONC ARIA SESSION SUMMARY (10/03/2024 9:57 AM ASSISTANCE COORDINATOR) Course Name C1_SBRT RUL ARIA Course Plan [...] Dose (cGy) 5,500 ARIA 10/03/2024 9:57 AM ASSISTANCE COORDINATOR us Not In File Miscellaneous RADIATION ONCOLOGY ORD ERABLES Final Result ARIA * RAD ONC ARIA SESSION SUMMARY (10/02/2024 3:54 PM ASSISTANCE COORDINATOR) Course Name C1_SBRT RUL_2023 ARIA Course Plan [...] Dose (cGy) 5,500 ARIA 10/02/2024 3:54 PM ASSISTANCE COORDINATOR us Not In File Miscellaneous RADIATION ONCOLOGY ORD ERABLES Final Result ARIA * RAD ONC ARIA SESSION SUMMARY (09/29/2024 10:08 AM ASSISTANCE COORDINATOR) Course Name C1_SBRT RUL_2023 ARIA Course Plan [...] (cGy) 5,500 ARIA 09/29/2024 10:0 8 AM ASSISTANCE COORDINATOR us Not In File Miscellaneous RADIATION ONCOLOGY ORD ERABLES Final Result Performing Organization Address City/[facility] Co de Phone Number TOMMY from Last 3 Months Insurance MEDICARE IDPA MEDICARE IDMI Care Teams Nutrition Intern Relationship Specialty Start Date End Date Ehsan Madrigal MD [address] [place] [address] PCP - General Internal Medicine 08/10/24 Dontrell Caballero MD [address] [place] [id number] Radiation Oncologist Radiation Oncology 08/30/24 Letty Jon, BUSINESS DEVELOPMENT ENGINEER [id number] [place] [address] Nurse Practitioner 08/30/24
--- OUTSIDE RECORDS SUMMARY | 2024-12-27 16:49 | XMS_ITS | Clinical Summary ---
Author Organization [facility] Address [address] [place] [address] Care Team Providers Care Blocker Polishing Name Role Phone Ehsan Madrigal MD Primary Care Provider [phone] Dontrell Caballero MD Unavailable [phone] Letty Jon NP Unavailable [phone] Allergies No known active allergies Medications ibuprofen [...] chest lung cancer screening on 06/30/2024 at [facility] which reveals: Suspected 4 mm nodule [...] underwent a PET scan on 08/01/2024 at [facility] which reveals: 2.7 x 1.6 cm nodule in the right lung upper lobe with increased avidity, consistent with primary bronchogenic carcinoma. CT-guided biopsy is recommended. Pulmonary nodules measuring up to 7 mm, probably benign. Noncontrast low-dose CT chest is recommended in 6 months. Pathology from 08/11/2024 lung biopsy reveals adenocarcinoma. PFTs performed on 08/07/2024 at [facility] revealed an FEV 1 of 68% [...] Type Department Care Team Description 11/23/2024 Telephone [facility] Medical Office Building 2 Radiation On[address] [place] [address] Phillip Warrena 10/03/2024 9:45 AM [facility] Office [facility] 2 Radiation Oncology [address] [place] [address] Dontrell Caballero MD 10/03/2024 Completion of Therapy [facility] Office [facility] 2 Radiation Oncology [address] [place] [address] Dontrell Caballero MD 10/03/2024 Orders Only RAD ONC TREATMENTS Miscellaneous , Not In File 10/03/2024 Orders Only RAD ONC TREATMENTS Miscellaneous , Not In File 10/02/2024 3:30 PM [facility] Treatment [facility] Medical Office Building 2 Radiation Oncology [address] [place] [address] Dontrell Caballero MD 10/02/2024 Orders Only RAD ONC TREATMENTS Miscellaneous , Not In File 09/29/2024 9:45 AM [facility] Medical Office [facility] 2 Radiation Oncology [address] [place] [phone] Dontrell Caballero MD 09/29/2024 [facility] Medical Office Building 2 Radiation Oncology [address] [place] [address] Dontrell Caballero MD Adenocarcinoma (HCC) (Primary Dx) [...] cancer Mother all over cancer Other aunt Hessel syndrome Sister 1 Gale heart condition Sister [...] on file Legal Sex Female 6:30 PM FIG CAPRIFIER Gender Identity Not on file Sexual Orientation Not on file Obstetrics History Last Filed Vital Signs Vital Sign Reading Time Taken Comments Blood Pressure 133/82 09/29/2024 10:24 AM FIG CAPRIFIER Pulse 93 09/29/2024 10:24 AM FIG CAPRIFIER Temperature 37.2 C (99 F) 08/28/2024 3:37 PM FIG CAPRIFIER Respiratory Rate 18 08/28/2024 3:37 PM FIG CAPRIFIER Oxygen Saturation 92% 09/29/2024 10:24 AM FIG CAPRIFIER Inhaled Oxygen Concentration - - Weight 81.6 kg (180 lb) 09/29/2024 10:24 AM FIG CAPRIFIER Height 157.5 cm (5' 2 ) 08/28/2024 3:37 PM FIG CAPRIFIER Body Mass Index 32.92 08/28/2024 3:37 PM FIG CAPRIFIER Plan of Treatment Health Maintenance Due Date [...] ONC ARIA COURSE SUMMARY 10/03/2024 3:20 PM FIG CAPRIFIER RAD ONC ARIA SESSION SUMMARY 10/03/2024 9:57 AM FIG CAPRIFIER RAD ONC ARIA SESSION SUMMARY 10/02/2024 3:54 PM FIG CAPRIFIER RAD ONC ARIA SESSION SUMMARY 09/29/2024 10:08 AM FIG CAPRIFIER from Last 3 Months Results * RAD ONC ARIA COURSE SUMMARY (10/03/2024 3:20 PM FIG CAPRIFIER) Course Name C1_SBRT RUL_2023 ARIA Course Plan [...] Dose (cGy) 5,500 ARIA 10/03/2024 3:20 PM FIG CAPRIFIER us Not In File Miscellaneous RADIATION ONCOLOGY ORD ERABLES Final Result BUCKA * RAD ONC ARIA SESSION SUMMARY (10/03/2024 9:57 AM FIG CAPRIFIER) Course Name C1_SBRT RUL_2023 ARIA Course Plan [...] Dose (cGy) 5,500 ARIA 10/03/2024 9:57 AM FIG CAPRIFIER us Not In File Miscellaneous RADIATION ONCOLOGY ORD ERABLES Final Result Performing Organization Address [facility] Co de Phone Number ARIApril * RAD ONC ARIA SESSION SUMMARY (10/02/2024 3:54 PM FIG CAPRIFIER) Course Name C1_SBRT RUL_2023 ARIA Course Plan [...] Dose (cGy) 5,500 ARIA 10/02/2024 3:54 PM FIG CAPRIFIER us Not In File Miscellaneous RADIATION ONCOLOGY ORD ERABLES Final Result TOMMY * RAD ONC ARIA SESSION SUMMARY (09/29/2024 10:08 AM FIG CAPRIFIER) Course Name C1_SBRT RUL_2023 ARIA Course Plan [...] (cGy) 5,500 ARIA 09/29/2024 10:0 8 AM FIG CAPRIFIER us Not In File Miscellaneous RADIATION ONCOLOGY ORD ERABLES Final Result TOMMY from Last 3 Months Insurance MEDICARE [facility] Address: [address] [address] [place] [address] [employer] MEDICARE [facility] Address: [address] [address] [place] [address] IDPA Care Teams Blocker Polishing Relationship Specialty Start Date End Date Ehsan Madrigal MD [address] [facility] [place] [address] PCP - General Internal Medicine 08/10/24 Dontrell Caballero MD [address] [place] [address] Radiation Oncologist Radiation Oncology 08/30/24 Letty Jon NP [id number] [place] [address] Nurse Practitioner 08/30/24
--- OUTSIDE RECORDS SUMMARY | 2024-12-27 16:49 | XMS_ITS | Clinical Summary ---
Author Organization [facility] Address [facility] [place] [address] Care Team Providers Care Labor Delivery Rn Name Role Phone Unavailable Primary Care Provider [...]
--- OUTSIDE RECORDS SUMMARY | 2024-12-27 16:49 | XMS_ITS ---
Author Organization [facility] Address [address] [place] [address] Care Team Providers Care Auto Parts Clerk Name Role Phone Ehsan Madrigal MD Primary Care Provider [phone] Dontrell Caballero MD Unavailable [phone] Letty Jon NP Unavailable [phone] Active Problems Patient Care Coordination No te [...] chest lung cancer screening on 06/30/2024 at [facility] which reveals: Suspected 4 mm nodule right [...] underwent a PET scan on 08/01/2024 at [facility] which reveals: 2.7 x 1.6 cm nodule in the right lung upper lobe with increased avidity, consistent with primary bronchogenic carcinoma. CT-guided biopsy is recommended. Pulmonary nodules measuring up to 7 mm, probably benign. Noncontrast low-dose CT chest is recommended in 6 months. Pathology from 08/11/2024 lung biopsy reveals adenocarcinoma. PFTs performed on 08/07/2024 at [facility] revealed an FEV 1 of 68% predicted [...]
== END 2024-12-27 15:16 | disposition home or self-care (01) ==
PROVIDERS: PCP Internal Medicine; Visit Provider Internal Medicine
DX: R06.09 Other forms of dyspnea (principal); R60.0 Localized edema; R94.31 Abnormal electrocardiogram [ECG] [EKG]
CPT/HCPCS: 71046

== ENCOUNTER 2025-01-10 07:33 | Outpatient (CLI) | payer MEDICARE, MEDICAID, SELFPAY ==
--- NOTE | 2025-01-10 | ECHO_ITS ---
Patient Info Name: Cheyenne Serrato Age: 64 years : 1960 Gender: Female Ht: 63 in Wt: 197 lbs BSA: 2.03 m2 HR: 94 bpm BP: 133 / 89 mmHg Heart Rhythm: Sinus Rhythm Technical Quality: Fair Exam Date: 01/10/2025 8:06 AM Exam Location: Echo Lab Patient Status: Outpatient Admit Date: 01/10/2025 Staff Ordering Physician: Ehsan Madrigal MD Temporary Receptionist: India Bell RDCS Attending Provider: Ehsan Madrigal MD Referring Physician: Kaitlin MCKEON; Exam Type: CA echo doppler color flow Study Info Indications R06.09 - Other forms of dyspnea Complete two-dimensional, color flow and Doppler transthoracic echocardiogram is performed. Summary 1. Complete two-dimensional, color flow and Doppler transthoracic echocardiogram is performed. 2. Left ventricular chamber dimension is normal. 3. Left ventricular systolic function is normal, estimated at 60-65%. 4. The left ventricular diastolic function is grade I diastolic dysfunction. 5. E/e' 12 is mildly elevated. 6. Left atrial chamber dimension is mildly enlarged. 7. No pulmonary hypertension, estimated pulmonary arterial systolic pressure is 18 mmHg. Left Ventricle E/e' 12 is mildly elevated. Left ventricular chamber dimension is normal. Left ventricular systolic function is normal, estimated at 60-65%. The left ventricular diastolic function is grade I diastolic dysfunction. Right Ventricle Right ventricular systolic function is normal and with normal TAPSE 2.0 cm. Right ventricular chamber dimension is normal. Left Atria Left atrial chamber dimension is mildly enlarged. Right Atria Right atrial chamber dimension is normal. Aortic Valve The aortic valve is trileaflet. There is no aortic valve stenosis. There is no aortic valve regurgitation. Pulmonic Valve There is no pulmonic regurgitation. Mitral Valve There is no mitral valve stenosis. There is no mitral valve regurgitation. Tricuspid Valve There is no tricuspid valve regurgitation. No pulmonary hypertension, estimated pulmonary arterial systolic pressure is 18 mmHg. Pericardium/Pleural There is no pericardial effusion. Inferior Vena Cava Normal inferior vena cava with >50% collapse upon inspiration consistent with normal right atrial pressure, 5 mmHg. Aorta The aortic root size at the sinus of Valsalva is normal. Left Ventricular Outflow Tract Name Value Normal LVOT 2D LVOT Diameter 2.0 cm LVOT Doppler LVOT Peak Gradient 3 mmHg LVOT Mean Gradient 2 mmHg LVOT VTI 17 cm LVOT VTI/AV VTI Ratio 0.6 LVOT Stroke Volume 53 ml LVOT CO 4.7 l/min LVOT CI 2.3 l/min/m2 Pulmonic Valve Name Value Normal RVOT Doppler RVOT Peak Gradient 2 mmHg PV Doppler PV Peak Gradient 4 mmHg Mitral Valve Name Value Normal MV Doppler MV Decel [place] 673 cm/s2 MV PHT 34 ms MV Area (PHT) 6.4 cm2 4.0-5.0 MV Diastolic Function MV E Peak Velocity 80 cm/s MV A Peak Velocity 113 cm/s MV E/A 0.7 MV Decel Time 119 ms MV Annular TDI MV E/e' (Septal) 15.5 <=8.0 MV E/e' (Lateral) 11.1 <=8.0 MV E/e' (Average) 13.3 Tricuspid Valve Name Value Normal TV Regurgitation Doppler TR Peak Velocity 180 cm/s TR Peak Gradient 13 mmHg Estimated PAP/RSVP RA Pressure 5 mmHg <=5 PA Systolic Pressure 18 mmHg <36 RV Systolic Pressure 18 mmHg <36 Aorta Name Value Normal Ascending Aorta Ao Root Diameter (MM) 3.0 cm Ao Root Diam Index (MM) 1.5 cm/m2 Aortic Valve Name Value Normal AV Doppler AV Peak Velocity 130 cm/s AV Peak Gradient 7 mmHg AV Mean Gradient 4 mmHg AV VTI 27 cm AV Area (Cont Eq VTI) 1.9 cm2 >=3.0 AV Area (Cont Eq Chepe) 2.1 cm2 AV Regurgitation 2D LVOT Area 3.0 cm2 Ventricles Name Value Normal LV Dimensions 2D/MM IVS Diastolic Thickness (2D) 0.7 cm 0.6-1.0 LVID Diastole (2D) 5.2 cm 3.8-5.2 LVIW Diastolic Thickness (2D) 0.7 cm 0.6-0.9 LVID Systole (2D) 3.1 cm 2.2-3.5 LVOT Diameter 2.0 cm LV Mass (2D Cubed) 127.39 g 67.00-162.00 LV Mass Index (2D Cubed) 63 g/m2 43-95 Relative Wall Thickness (2D) 0.27 LV Fractional Shortening/Ejection Fraction 2D/MM LV Fractional Shortening (2D) 41 % 27-45 LV EF (2D Teicholz) 72 % 54-74 LV Diastolic Volume (4C MOD) 39 ml LV EF (4C MOD) 63 % LV Diastolic Volume (2C MOD) 30 ml LV EF (2C MOD) 76 % LV Diastolic Volume (BP MOD) 34 ml 46-106 LV Diastolic Volume Index (BP MOD) 17 ml/m2 29-61 LV Systolic Volume (BP MOD) 11 ml 14-42 LV Systolic Volume Index (BP MOD) 5 ml/m2 8-24 LV EF (BP MOD) 69 % 54-74 LV Diastolic Length (4C) 7.1 cm LV Systolic Length (4C) 5.9 cm LV Stroke Volume (4C MOD) 25 ml Atria Name Value Normal LA Dimensions LA Dimension (MM) 3.6 cm 2.7-3.8 LA Volume (4C A-L) 27 ml LA Volume (BP A-L) 23 ml RA Dimensions RA Area (4C) 9.7 cm2 <=18.0 Report Signatures
--- OUTSIDE RECORDS SUMMARY | 2025-01-10 07:41 | XMS_ITS | Data Portability ---
Author Organization [facility], Main Office Address [address] [place] [address] Care Team Providers Care Drying Room Attendant Name Role Phone PHILLIP RICO Primary Care Provider PHILLIP RICO Referring Provider [phone] Assessment Encounter Date Assessment Date Assessment LastModified by Organization Details LastModified Time 07/10/2024 07/10/2024 This note is dictated and transcribed by [employer]. Tipple Tender variances may occur. Despite proofreading, typographical errors may occur. Occasional wrong-word or '[id number]' substitutions may have occurred due to the [...] or more view 024 07/11/20 24 [email or web address] [facility] [place], [address], [place], [address], 4 09:16:53 XR, foot, 3 or more view 024 07/11/20 24 [email or web address] [facility] [place], [address], [place], [address], 4 09:16:55 Medication Orders None record ed. Patient TargetsNo targets recorded. Patient InstructionsNo instructions recorded. Reason for Referral None Reported. Results Created Date Observation Date Name Description Value Unit Range Abnormal Flag Note LastModifiedBy Organization Detail LastModifiedTime 07/11/20 24 XR, foot, 3 or more view No observ ation record ed. [email or web address] [facility] [place] [address], [place], [address], 07/11/2024 09:16:29 07/11/20 24 XR, foot, 3 or more view No observ ation record ed. [email or web address] [facility] [place] [address], [place], [address], 07/11/2024 09:16:54 Result Notes None recorded. Problems Name Problem SNOMED Code Status Onset Date Resolution Date Notes Provider Name and Address Organization Details Recorded Time Anemia 858632674 Active 2023 Laine clements [place] - [facility] 4 12:29:05 Anxiety 39618779 Active 2023 Lanie clements, [facility] 4 12:29:13 Arthritis 7251667 Active 2023 Lanie clements [facility] 4 12:29:19 Bronchitis 73860438 Active 2023 Lanie clements [facility] 4 12:29:28 Depressive disorder 83402333 Active 2023 Lanie clements [facility] 4 12:29:36 Dizziness 580544551 Active 2023 Lanie clements [facility] 4 12:29:45 Ear problem 099616239 Active 2023 Lanie clements [place] - [facility] 4 12:32:11 Disorder of eye 736485968 Active 2023 Lanie clements [facility] 4 12:32:18 Headache 63898889 Active 2023 Lanie Pollackd null, [facility] 4 12:32:24 Hyperchole sterolemia 14705304 Active 2023 Lanie Alvarado null, [facility] 4 12:32:32 Obesity 949772271 Active 2023 Lanie Alvarado null, [facility] 4 12:32:39 Osteoporos is 72844210 Active 2023 Lanie Alvarado null, [facility] 4 12:33:10 Pneumonia 905812713 Active 2023 Lanie Alvarado null, [facility] 4 12:33:19 Pain in right foot 3123561037260 07 Active 2023 Brian Dueñas DPM [address], [place], [address] , [facility], [facility] 4 09:10:37 Bunbutch 627999023 Active 2023 Brian Dueñas DPM [address], [address], [place], [address] , [facility] 4 09:10:42 Foot callus 741307964 Active 2023 Brian Dueñas DPM [address], [place], [address] , [facility] 4 09:10:49 Hammer toe 903532408 Active 2023 Brian Dueñas DPM [address], [place], [address] , [facility] 4 09:14:14 Bunion 800721657 Active 2023 Brian Dueñas DPM [address], [place], [address] , [facility] 4 09:14:53 Notes:USE OF NSAIDS Problem Notes None recorded. Procedures Surgical History Date Name Laterality Status Provider Name and Address Organization Details Recorded Time 07/10/20 24 Nail Debridement completed Brian Dueñas DPM [address], [place], [address], [facility], [place] [employer] [facility] 07/11/2024 09:13:49 07/10/20 24 Callus Debridement 2-4 completed Brian Dueñas DPM [address], [place], [address], [facility], [place] [employer] [facility] 07/11/2024 09:13:57 10/11/18 83 section completed [facility] [employer] [facility] 07/10/2024 12:37:40 10/11/18 79 section completed [facility] [employer] [facility] 07/10/2024 12:37:36 10/11/18 78 section completed [facility] [employer] [facility] 07/10/2024 12:37:32 Carpal tunnel surgery completed [facility] [employer] [facility] 07/10/2024 12:38:07 Carpal tunnel surgery completed [facility] [employer] [facility] 07/10/2024 12:38:08 Imaging Results Imaging Date Name Status LastModified by Organiz ation Details LastModified Time 07/11/2024 XR, foot, 3 or more view completed [email or web address] [facility] [place] [address], [place], [address], 07/11/2024 09:16:29 07/11/2024 XR, foot, 3 or more view completed [email or web address] [facility] [place] [address], [place], [address], 07/11/2024 09:16:54 Procedure Notes None recorded. Medical [...] /min 98 % 98 % Marlin Anurag [place] [facility] 12:02:18 Date Recorded Body height Body mass index (BMI) Body weight Provider Name and Address Organization Details Last Updated DateTime 07/10/2024 162.56 cm 28.7 kg/m2 77524.93 g Lanie Alvarado [facility] [employer] [facility] 07/10/2024 12:28:22 Social History None recorded. Functional [...] Y OSTEOPOROSIS Y USE OF NSAIDS Y DEPRESSION (INCLUDING POST ) Y BACK / NECK PROBLEMS Y HIGH CHOLESTEROL / HYPERLIPIDEMIA Y Gynecological HistoryNo gynecological history recorded. Obstetrics History GPAL:G 0 P 0 0 0 0 Past Encounters Encounter ID Performer Location Encounter Start Date Encounter Closed Date Diagnosis/Indication Diagnosis SNOMED-CT Code Diagnosis ICD10 Code Diagnosis Note [id number] Brian Dueñas DPM [facility] [place] [address] [place] [address] 07/10/2024 11:41:21 07/13/2024 16:39:45 Pain in right foot 9858009562 25996 M79.671 secondary to below Bunion 896994098 M21.61 9 conservati ve and surgical treatments reviewedPa tient will need to stop smoking prior to surgery.Co nservative therapy options including wide shoe gear, silicone sleeves, bunion sleeves reviewed with the patientFol low-up 3 months Hammer toe 950794766 M20 .41 M20.42 as above Foot callus 818502698 L8 4 Debrided without incidentCo nservative offloading reviewed Health Concerns Section Related Observation LastModified by Organization Detai ls LastModified Time None Recorded Concern Status LastModified by Organization Details LastModified Time None Recorded Advance Directives Directive None Recorded Payers Encounter Date Sequence Insurance Name Policy Number Policy Matson Covered Member ID Matson Member ID Guarantor Name 07/10/2024 1 MEDICARE-[place] (MEDICARE) Cheyenne Serrato [id number] Cheyenne Serrato 07/10/2024 2 [place] (SECONDARY PLAN WHEN MEDICARE OR MEDICARE REPLACEMENT PRIMARY) Cheyenne Serrato [id number] Cheyenne Serrato Notes Date Note Type Note Provider Name and Address Organization Details Recorded Time 07/10/2024 text/html . Patient is a 64-year-old female she presents to the office with complaints of pain to her right plantar foot. Patient has had this issue for several years. Patient states she was seen by a auger supervisor in the past she denies any wounds or infection but states that when she is walking she has pain worse to the sub 2nd metatarsal head. Patient has hammertoe and bunion deformities worse to the right foot. Patient is currently being evaluated for mental evaluation. Patient is a heavy smoker. Patient denies any other complaints. Brian Dueñas DPM [address], [place], [address], [facility], [place] [employer] 07/11/2024 09:17:35 OBGyn Episode No OBEpisode recorded.
--- OUTSIDE RECORDS SUMMARY | 2025-01-10 07:41 | XMS_ITS ---
Author Organization [facility] Address [address] [place] [address] Care Team Providers Care Transmitter Tester Name Role Phone Kaitlin Ehsan Primary Care Provider [phone] Results Component Value Reference Range Notes TSH Rfx on Abnormal to Free T4 Reviewed date:12/28/2024 10:46:09 AM Interpretation: Performing Lab:[facility] [place], [address] [place] [address], Phone - [phone], Director - PhDBaystate [facility] Hospital[facility] Notes/Report: TSH 2.390 0.450-4.500 uIU/mL CMP 14 Comprehensive Metabol ic Panel* Reviewed date:12/28/2024 10:46:09 AM Interpretation: Performing Lab:[facility] [place], [address] [place] [address], Phone - [phone], Director - PhDUnm Sandoval Regional Medical Centeri Notes/Report: Glucose 83 70-99 mg/dL BUN 15 8-27 mg/dL Creatinine 0.77 0.57-1.00 mg/dL eGFR 85 >59 mL/min/1.73 BUN/Creatinine Ratio 19 12-28 Sodium 141 134-144 mmol/L Potassium 4.6 3.5-5.2 mmol/L Chloride 103 96-106 mmol/L Carbon Dioxide, Total 24 20-29 mmol/L Calcium 9.3 8.7-10.3 mg/dL Protein, Total 6.8 6.0-8.5 g/dL Albumin 4.4 3.9-4.9 g/dL Globulin, Total 2.4 1.5-4.5 g/dL Bilirubin, Total 0.2 0.0-1.2 mg/dL Alkaline Phosphatase 105 44-121 IU/L AST (SGOT) 21 0-40 IU/L ALT (SGPT) 22 0-32 IU/L Lipid Panel* Reviewed date:12/28/2024 10:46:09 AM Interpretation: Performing Lab:[facility] [place], [address] [place] [address], Phone - [phone], Director - [facility] Notes/Report: Cholesterol, Total 247 100-199 mg/dL Triglycerides 174 0-149 mg/dL HDL Cholesterol 68 >39 mg/dL VLDL Cholesterol Arnel 31 5-40 mg/dL LDL Chol Calc ([facility]) 148 0-99 mg/dL CBC With Differential/Platel et* Reviewed date:12/28/2024 10:46:08 AM Interpretation: Performing Lab:[facility] [place], [address] [place] [address], Phone - [phone], Director - [facility] Notes/Report: WBC 6.4 3.4-10.8 x10E3/uL RBC 4.49 3.77-5.28 x10E6/uL Hemoglobin 14.2 11.1-15.9 g/dL Hematocrit 42.7 34.0-46.6 % MCV 95 79-97 fL MCH 31.6 26.6-33.0 pg MCHC 33.3 31.5-35.7 g/dL RDW 12.1 11.7-15.4 % Platelets 170 150-450 x10E3/uL Neutrophils 67 Not Estab. % Lymphs 23 Not Estab. % Monocytes 8 Not Estab. % Eos 1 Not Estab. % Basos 0 Not Estab. % Neutrophils (Absolute) 4.3 1.4-7.0 x10E3/uL Lymphs (Absolute) 1.5 0.7-3.1 x10E3/uL Monocytes(Absolute) 0.5 0.1-0.9 x10E3/uL Eos (Absolute) 0.1 0.0-0.4 x10E3/uL Baso (Absolute) 0.0 0.0-0.2 x10E3/uL Immature Granulocytes 1 Not Estab. % Immature Grans (Abs) 0.0 0.0-0.1 x10E3/uL Hemoglobin A1c* Reviewed date:12/28/2024 10:46:08 AM Interpretation: Performing Lab:[facility] [place], [address] [facility], Phone - [phone], Director - [facility] Notes/Report: Hemoglobin A1c 5.7 4.8-5.6 % . Prediabetes: 5.7 - 6.4 Diabetes: >6.4 Glycemic control for adults with diabetes: <7.0 REASON FOR VISIT LAB Social History Sex Assigned At : Social History Observation Description Sex Assigned At Female Encounters Encounter Location Date Provider Diagnosis [address] [place] [address] 12/27/2024 Ehsan Madrigal Screening for diabet es [...] Fatigue (ICD-10 - R53.83) Plan Of Treatment No Information Progress Notes * Jude MOCTEZUMAOB:1960 (64 yo F)Acc No.[id number]:12/27/2024 Patient: Chyeenne DURAN Provider: Dixie Madrigal :1960 A ge:64 Y S ex:Female Date:12/27/2024 Address:[address] [place], [place] [id number] Subjective: * Chief Complaints: * 1 . LAB. * Medical History: Objective: * Vitals: Assessment: * Assessment: 1. S creening for diabetes mellitus - Z13.1 2 . D OE (dyspnea on exertion) - R06.09 3 . L ipid screening - Z13.220 4 . A denocarcinoma - C80.1 5 . F atigue - R53.83 Plan: * Treatment: Value Reference Range H emoglobin A1c 5.7 H 4.8-5.6 - % * Alegreadrienne Chen 12/27/2024 02 :35:15 PM CDT > Specimen collected by RB, patient tolerated well. Ehsan Madrigal 12/28/2024 10:10:03 AM CDT > A1c in prediabetic range. LDL moderately elevated but HDL is very good. Trial of Mediterranean diet and repeat labs in 3 months. Add medication if not improving. KATHLEEN Morrison, Maria D Chen 12/28/2024 10:42:21 AM CDT >Pt verbalized uderstandingThis lab was reviewed by Maria D Morrison RN on 12/28/2024 at 10:46 AM CDT 2.?DOMINGO (dyspnea on exertion)?LAB: CBC With Differential/Platelet* (Collection Date & Time - 12/27/2024) * Value Reference Range I mmature Grans (Abs) 0.0 0.0-0.1 - x10E3/uL * I mmature Granulocytes 1 Not Estab. - % * B aso (Absolute) 0.0 0.0-0.2 - x10E3/uL * N eutrophils (Absolute) 4.3 1.4-7.0 - x10E3/uL * R BC 4.49 3.77-5.28 - x10E6/uL * M onocytes(Absolute) 0.5 0.1-0.9 - x10E3/uL * W BC 6.4 3.4-10.8 - x10E3/uL * E os (Absolute) 0.1 0.0-0.4 - x10E3/uL * H emoglobin 14.2 11.1-15.9 - g/dL * H ematocrit 42.7 34.0-46.6 - % * M CV 95 79-97 - fL * M CH 31.6 26.6-33.0 - pg * M CHC 33.3 31.5-35.7 - g/dL * R DW 12.1 11.7-15.4 - % * L ymphs (Absolute) 1.5 0.7-3.1 - x10E3/uL * B asos 0 Not Estab. - % * E os 1 Not Estab. - % * M onocytes 8 Not Estab. - % * L ymphs 23 Not Estab. - % * N eutrophils 67 Not Estab. - % * P latelets 170 150-450 - x10E3/uL * Sruthi Mcmahan 12/27/2024 02 :35:32 PM CDT >Specimen collected by RB, patient tolerated well. Ehsan Madrigal 12/28/2024 10:10:03 AM CDT > A1c in prediabetic range. LDL moderately elevated but HDL is very good. Trial of Mediterranean diet and repeat labs in 3 months. Add medication if not improving. KATHLEEN Morrison, Maria D Chen 12/28/2024 10:42:21 AM CDT >Pt verbalized uderstandingThis lab was reviewed by Maria D Morrison RN on 12/28/2024 at 10:46 AM CDT 3.?Lipid screening?LAB: Lipid Panel* (Collection Date & Time - 12/27/2024)* Value Reference Range T riglycerides 174 H 0-149 - mg/dL * H DL Cholesterol 68 >39 - mg/dL * C holesterol, Total 247 H 100-199 - mg/dL * V LDL Cholesterol Arnel 31 5-40 - mg/dL * L DL Chol Calc ([facility]) 148 H 0-99 - mg/dL * Sruthi Mcmahan 12/27/2024 02 :35:43 PM CDT > Specimen collected, patient tolerated well. Ehsan Madrigal 12/28/2024 10:10:03 AM CDT > A1c in prediabetic range. LDL moderately elevated but HDL is very good. Trial of Mediterranean diet and repeat labs in 3 months. Add medication if not improving. KATHLEEN Morrison, Maria D Chen 12/28/2024 10:42:21 AM CDT >Pt verbalized uderstandingThis lab was reviewed by Maria D Morrison RN on 12/28/2024 at 10:46 AM CDT 4.?Adenocarcinoma?LAB: CMP 14 Comprehensive Metabolic Panel* (Collection Date & Time - 12/27/2024)* Value Reference Range C alcium, Serum 9.3 8.7-10.3 - mg/dL * A ST (SGOT) 21 0-40 - IU/L * A lkaline Phosphatase, S 105 44-121 - IU/L * B ilirubin, Total 0.2 0.0-1.2 - mg/dL * P rotein, Total, Serum 6.8 6.0-8.5 - g/dL * A lbumin, Serum 4.4 3.9-4.9 - g/dL * A LT (SGPT) 22 0-32 - IU/L * C arbon Dioxide, Total 24 20-29 - mmol/L * G lobulin, Total 2.4 1.5-4.5 - g/dL * C hloride, Serum 103 96-106 - mmol/L * P otassium, Serum 4.6 3.5-5.2 - mmol/L * S odium, Serum 141 134-144 - mmol/L * B UN/Creatinine Ratio 19 12-28 - * C reatinine, Serum 0.77 0.57-1.00 - mg/dL * B UN 15 8-27 - mg/dL * G lucose, Serum 83 70-99 - mg/dL * e GFR 85 >59 - mL/min/1.73 * Sruthi Mcmahan 12/27/2024 02 :35:52 PM CDT > Specimen collected, patient tolerated well. Ehsan Madrigal 12/28/2024 10:10:03 AM CDT > A1c in prediabetic range. LDL moderately elevated but HDL is very good. Trial of Mediterranean diet and repeat labs in 3 months. Add medication if not improving. KATHLEEN Morrison, Maria D Chen 12/28/2024 10:42:21 AM CDT >Pt verbalized [facility]card[facility] hospitalThis [facility] was reviewed by Maria D Morrison RN on 12/28/2024 at 10:46 AM CDT 5.?Fatigue?LAB: TSH Rfx on Abnormal to Free T4 (Collection Date & Time - 12/27/2024)* Value Reference Range T SH 2.390 0.450-4.500 - uIU/mL * Sruthi Mcmahan 12/27/2024 02 :35:58 PM CDT > Specimen collected, patient tolerated well. Ehsan Madrigal 12/28/2024 10:10:03 AM CDT > A1c in prediabetic range. LDL moderately elevated but HDL is very good. Trial of Mediterranean diet and repeat labs in 3 months. Add medication if not improving. KATHLEEN Morrison, Maria D Chen 12/28/2024 10:42:21 AM CDT >Pt verbalized uderstandingThis lab was reviewed by Maria D Morrison RN on 12/28/2024 at 10:46 AM CDT * * Sign off status: Completed true * Provider: Dixie Madrigal Date: 0 12/27/2024 Generated for Milton landeros/Dash/Jeff on: 0 01/10/2025 07:41 AM CDT
--- OUTSIDE RECORDS SUMMARY | 2025-01-10 07:42 | XMS_ITS ---
Author Organization [facility] Address [address] [place] [address] Care Team Providers Care Pressurised Container Filler Name Role Phone Ehsan Madrigal Primary Care Provider [phone] Allergies No Known Allergies Results Component Value Reference Range Notes Electrocardiogram (EKG), IH Reviewed date:01/02/2025 10:16:23 AM Interpretation: Performing Lab: Notes/Report: REASON FOR VISIT Tired and leg pain [...] 12/27/2024 Encounters Encounter Location Date Provider Diagnosis [address] [place] [address] 12/27/2024 Ehsan Madrigal DOMINGO (dyspnea on exertion) [...] AVOID SODA, FRUIT JUICE, BREADS, POTATO CHIPS, TRISTANIAN FRIES, FAST FOOD, BOXED FOODS, FROZEN DINNERS. [...] AVOID SODA, FRUIT JUICE, BREADS, POTATO CHIPS, TRISTANIAN FRIES, FAST FOOD, BOXED FOODS, FROZEN DINNERS. EAT CHICKEN, FISH, TURKEY, GREEN LEAFY VEGETABLES, BERRIES, UNSALTED NUTS, AND OLIVE OIL. AVOID ANIMAL FATS. AVOID RED MEAT. Future Test Test Name Order Date Echo doppler exam 12/27/2024 Next Appt Details Follow Up: 2 Weeks, Reason: DOMINGO, LAB & XR RESULTS Progress Notes * Anahi MOCTEZUMANildaOB:1960 (64 yo F)Acc No.[id number]:12/27/2024 Progress Notes Patient: O RRAnahin Provider: Dixie Madrigal :1960 A ge:64 Y S ex:Female Date:12/27/2024 Address:[place], [id number] Check In:12:56 PM SOUND TESTER Subjective: * Chief Complaints: * T ired [...] Depression P atient refused intervention S creening: Rock Suicide Severity Rating Scale (LF) D o [...] daughter(s) . . * Social History: P rimary Social History: L iving Arrangement L iving [...] bnormal EKG - R94.31 Plan: * Treatment: ?Imaging: Chest X-ray PA and lateral (Ordered for 12/27/2024) ?Imaging: Echo doppler exam (Ordered for 12/27/2024) Notes: AVOID SUGAR, FLOUR, SALT. AVOID PROCESSED FOODS. AVOID SODA, FRUIT JUICE, BREADS, POTATO CHIPS, TRISTANIAN FRIES, FAST FOOD, BOXED FOODS, FROZEN DINNERS. EAT CHICKEN, FISH, TURKEY, GREEN LEAFY VEGETABLES, BERRIES, UNSALTED NUTS, AND OLIVE OIL. AVOID ANIMAL FATS. AVOID RED MEAT. ?? Clinical Notes: DOMINGO, ORTHOPNEA, EDEMA ALL WORRSOME FOR CHF. ANGINAL EQUIVALENT ALSO A CONSIDERATION. MORE LIKELY DUE TO WT GAIN, DECONDITIONING. POSSIBLE COPD. LACK OF HYPOXIA OR TACHYCARDIA AGAINS PE. CONSIDER PFT IF CARDIAC EVALUATION IS UNREMARKABLE. ??2.?Edema of both feet?Imaging: Chest X-ray PA and lateral (Ordered for 12/27/2024) ?Imaging: Echo doppler exam (Ordered for 12/27/2024) Clinical Notes: DEPENDENT EDEMA VS CHF. ??3.?Adenocarcinoma?LAB: CMP 14 Comprehensive Metabolic Panel* (Ordered for 12/27/2024) (Collection Date & Time - 12/27/2024) Clinical Notes: LUNG. S/P RT. ??4.?Fatigue?LAB: TSH Rfx on Abnormal to Free T4 (Ordered for 12/27/2024) (Collection Date & Time - 12/27/2024)5.?Screening for diabetes mellitus?LAB: Hemoglobin A1c* (Ordered for 12/27/2024) (Collection Date & Time - 12/27/2024)6.?Lipid screening?LAB: Lipid Panel* (Ordered for 12/27/2024) (Collection Date & Time - 12/27/2024)7.?Abnormal EKG?Imaging: Echo doppler exam (Ordered for 12/27/2024) Clinical Notes: INFEROPOSTERIOR Q-WAVES SUGGESTIVE OF OLD INFARCT. SINUS TACHYCARDIA. LAFB. ?? * Recommended Wellness and Pre vention Guidelines: * S lópez Cowart ast Done N ext Due A ction [...] Procedure Codes: 3 008F BODY MASS INDEX [id number] MEDICAL NUTRITION, INDIV, [id number] TOBACCO [id number] ELECTROCARDIOGRAM, TRACING, Modifiers: GE G0467 [facility] VISIT ESTABLISHED PATIENT * Preventive Medicine: Counseling: C are goal follow-up plan: BMI management provided Y es Above Normal BMI Follow-up L ifestyle education regarding diet * Follow Up: 2 Weeks (Reason: DOMINGO, LAB & XR RESULTS) * * Sign off status: Completed true * Provider: Dixie Madrigal Date: 12/27/2024 Generated for Milton landeros/Dash/Jeff on: 0 01/10/2025 07:42 AM CDT History and Physical Notes * HPI [...] for Depression: Patient refuse d intervention Screening Rock Suicide Sev erity Rating Scale (LF) Do [...]
--- OUTSIDE RECORDS SUMMARY | 2025-01-10 07:42 | XMS_ITS | Clinical Summary ---
Author Organization [facility] Address [facility] [place] [address] Care Team Providers Care Overhead Irrigator Name Role Phone Unavailable Primary Care Provider [...]
--- OUTSIDE RECORDS SUMMARY | 2025-01-10 07:42 | XMS_ITS | Encounter Summary ---
Author Organization [facility] Healthcare Address [address] [place] [address] Care Team Providers Care Date Night Sitter Name Role Phone Ehsan Madrigal MD Primary Care Provider [phone] Dontrell Caballero MD Unavailable [phone] Letty Jon NP Unavailable [phone] Encounter Details Date Type Department Care Team (Late st Contact Info) Description 01/09/2025 Telephone [facility] Medical Office Building 2 Radiation Oncology [address] [place] [address] Louisa Warren Social History Tobacco Use Types Packs/Day Years Used Date Smoking Tobacco: Former Cigarettes AUDIT-C Answer Date Recorded Frequency of Alcohol Consumption Not on file 08/28/2024 Q2: How many drinks containi ng alcohol do you have on a typical day when you are drinking? Patient does not drink Frequency of Binge Drinking Not on file 08/11 Comments Unknown Sex and Gender Information Value Date Recorded Sex Assigned at Not on file Legal Sex Female 6:30 PM ACCESS DATABASE DEVELOPER Gender Identity Not on file Sexual Orientation Not on file documented as of this encounter Miscellaneous Notes * Telephone Encounter - Briana Louisa - 01/09/2025 8:38 AM CDT Patient is scheduled for PET/CT on 01/18/25 @ 10am with 945am arrival. In [address] Patient can call [phone] or [phone] with any questions. Patient has been notified PET/CT FDG SKULL TO THIGH Please note the entire exam may take up to 2 hours to complete Patient should not eat or drink (NPO), except for plain water, for a minimum of 4 hours prior to your test (nothing to eat, drink, smoke, no gum, candy, mints) Please arrive well hydrated (drink plain water only; bladder does not need to be full) Follow a low carbohydrate, high protein diet the day prior to exam Avoid strenuous activity and exercise the day prior to the exam Diabetic patients should contact the performing department to discuss preparation and potential changes to medication prior to the exam Non-diabetic patients may take medications that are in pill form as prescribed (no gummies, no syrups) Patient will receive a phone call prior to exam to review preparation Bring a list of any medications you are currently taking Bring photo ID and insurance card and paper order if one was given to you by your provider Please provide a copy of any related medical imaging you???ve had performed in the past at a non-[facility] facility. You can either follow these instructions to upload them yourself online ([email or web address]) or bring a CD containing your images to your appointment documented in this encounter Plan of Treatment Not on file documented as of this encounter Visit Diagnoses Not on filedocumented in this encounter Care Teams Date Night Sitter Relationship Specialty Start Date End Date Ehsan Madrigal MD [address] [place] [address] [place] [address] PCP - General Internal Medicine 08/10/24 Dontrell Caballero MD [address] [place] [address] Radiation Oncologist Radiation Oncology 08/30/24 Letty Jon NP [id number] [place] [address] Nurse Practitioner 08/30/24 documented as of this encounter
--- OUTSIDE RECORDS SUMMARY | 2025-01-10 07:42 | XMS_ITS ---
Author Organization [facility] Address [address] [place] [address] Care Team Providers Care Electric Container Tester Name Role Phone Ehsan Madrigal MD Primary Care Provider [phone] Dontrell Caballero MD Unavailable [phone] Letty Jon NP Unavailable [phone] Active Problems Patient Care Coordination No te [...] chest lung cancer screening on 06/30/2024 at [facility] which reveals: Suspected 4 [...] underwent a PET scan on 08/01/2024 at [facility] which reveals: 2.7 x 1.6 cm nodule in the right lung upper lobe with increased avidity, consistent with primary bronchogenic carcinoma. CT-guided biopsy is recommended. Pulmonary nodules measuring up to 7 mm, probably benign. Noncontrast low-dose CT chest is recommended in 6 months. Pathology from 08/11/2024 lung biopsy reveals adenocarcinoma. PFTs performed on 08/07/2024 at [facility] revealed an FEV 1 [...]
--- OUTSIDE RECORDS SUMMARY | 2025-01-10 07:42 | XMS_ITS | Referral Summary ---
Author Organization [facility] Address [address] [place] [address] Care Team Providers Care Fish Packer Name Role Phone Ehsan Madrigal MD Primary Care Provider [phone] Dontrell Caballero MD Unavailable [phone] Letty Jon NP Unavailable [phone] Encounters Date Type Department Care Team Description 01/09/[address] [facility] Medical Office Building 2 Radiation Oncology [address] [place] [address] Louisa Warren 01/04/2025 9:30 AM CDT Office Visit [facility] Medical Office Building 2 Radiation Oncology [address] [place] [address] Misti Diaz, PA Malignant neoplasm of upper lobe of right lung (HCC) (Primary Dx); Personal history of radiation therapy; Lung nodule 01/01/2025 2:23 PM CDT - 01/01/2025 11:59 PM CDT Hospital Encounter [facility] Medical Office Building [address] [place] [address] Adenocarcinoma (HCC) Discharge Disposition: Discharge to home or self care 11/23/[address] [facility] Medical Office Building 2 Radiation Oncology [address] [place] [address] Louisa Warren from Last 3 Months Allergies No known [...] chest lung cancer screening on 06/30/2024 at [facility] which reveals: Suspected 4 mm nodule [...] underwent a PET scan on 08/01/2024 at [facility] which reveals: 2.7 x 1.6 cm nodule in the right lung upper lobe with increased avidity, consistent with primary bronchogenic carcinoma. CT-guided biopsy is recommended. Pulmonary nodules measuring up to 7 mm, probably benign. Noncontrast low-dose CT chest is recommended in 6 months. Pathology from 08/11/2024 lung biopsy reveals adenocarcinoma. PFTs performed on 08/07/2024 at [facility] revealed an FEV 1 of 68% [...] on file Legal Sex Female 6:30 PM CHRISTIAN SCIENCE NURSE Gender Identity Not on file Sexual Orientation Not on file Last Filed Vital Signs Vital Sign Reading Time Taken Comments Blood Pressure 130/73 01/04/2025 8:45 AM CDT Pulse 97 01/04/2025 8:45 AM CDT Temperature 37.2 C (99 F) 08/28/2024 3:37 PM CHRISTIAN SCIENCE NURSE Respiratory Rate 18 08/28/2024 3:37 PM CHRISTIAN SCIENCE NURSE Oxygen Saturation 97% 01/04/2025 8:45 AM CDT Inhaled Oxygen Concentration - - Weight 91.2 kg (201 lb) 01/04/2025 8:45 AM CDT Height 157.5 cm (5' 2 ) 08/28/2024 3:37 PM CHRISTIAN SCIENCE NURSE Body Mass Index 36.76 08/28/2024 3:37 PM CHRISTIAN SCIENCE NURSE Plan of Treatment Not on file Procedures Procedure Name Priority Date/Time Associated Diagnosis Comments CT CHEST WO CONTRAST Schedule Routine, Read Routine (OP Routine) 01/01/2025 2:39 PM CDT Adenocarcinoma (HCC) from Last 3 Months Results * CT Chest WO Contrast (01/01/2025 2:39 PM CDT) Anatomical Region Laterality Modality Body N/A Computed Tomogra phy 01/09/2025 5:07 AM CDT Narrative 01/09/2025 5:26 AM CDT EXAM DESCRIPTION: CT CHEST WO CONTRAST REASON FOR STUDY: Non-small cell lung cancer (NSCLC), non-metastatic, assess treatment response Assess treatment response for lung cancer diagnosed Jul 2024. Hx of lung biopsy. Pt reports no new complaints TECHNIQUE: CT scan of the chest performed without intravenous contrast using helical scanning technique. Reconstructed coronal and sagittal MPR images reviewed. All images stored on PACS. Automated exposure control was used as a dose optimization technique for this examination. COMPARISON: 06/30/2024 CT, 08/01/2024 PET-CT FINDINGS: The sensitivity for detection of solid visceral lesions is diminished without the use of intravenous contrast. LUNGS: Central airways are patent. Right upper lobe demonstrates a 1.2 cm pleural-based soft tissue density lesion with irregular borders on image 12 of series 3, increased from reported 0.4 cm previously. Right upper lobe medial soft tissue density lesion current image 42 measures 2.6 x 1.2 cm, previously 3.1 x 1.6 cm. Right upper lobe 0.4 cm nodule image 28 is unchanged. Right lower lobe 0.4 cm juxtapleural nodule image 39 is new from previous. Right lower lobe 0.7 cm nodule image 40 only faintly visualized previously. Right lower lobe somewhat ground-glass appearing 0.9 cm nodule image 59 generally unchanged but only faintly visualized previously. Left upper lobe semi solid nodular density laterally image 30 measures 1.8 x 0.8 cm. Generally similar on prior exams. Left upper lobe confluence interstitial densities along posterolateral pleural surface with peripheral increased density generally unchanged from previous measuring 2.8 by 1.5 cm. Adjacent juxtapleural left upper lobe 0.6 cm image 22 is unchanged. PLEURA: No effusion. No pneumothorax. MEDIASTINUM/JERRI: Nonenlarged lymph nodes retrocaval pretracheal space, subcarinal space. Small hiatal hernia redemonstrated. HEART: Normal size. No significant pericardial effusion. CORONARY ARTERY CALCIFICATION: Present VASCULATURE: No thoracic aortic aneurysm. AXILLA: No adenopathy. CHEST WALL: No masses. No subcutaneous air. HARDWARE/LINES/TUBES: None. UPPER ABDOMEN: Left adrenal lesion with no uptake reported on prior PET-CT measures 2.7 cm and is generally unchanged suggesting benign process. MUSCULOSKELETAL: No significant abnormality. OTHER: No other significant abnormality. IMPRESSION: Right upper lobe pleural-based 1.2 cm soft tissue density lesion has increased in size from 0.4 cm to 1.2 cm. Right upper lobe medial soft tissue density lesion measures 2.6 x 1.2 cm, previously 3.1 x 1.6 cm. Other nodules as above. THIS IS AN ELECTRONICALLY VERIFIED FINAL REPORT 01/09/2025 5:26 AM - Electronically signed by Jules Modi M.D. RB: HELGA Report ID: [id number] Reading Location: [id number] Procedure Note Jules Modi MD - 01/09/2025 EXAM DESCRIPTION: CT CHEST WO CONTRAST REASON FOR STUDY: Non-small cell lung cancer (NSCLC), non-metastatic,assess treatment response Assess treatment response for lung cancer diagnosed Jul 2024. Hx of lung biopsy. Pt reports no new complaints TECHNIQUE: CT scan of the chest performed without intravenous contrastusing helical scanning technique. Reconstructed coronal and sagittal MPR images reviewed. All images stored on PACS. Automated exposure control was usedas a dose optimization technique for this examination. COMPARISON: 06/30/2024 CT, 08/01/2024 PET-CT FINDINGS: The sensitivity for detection of solid visceral lesions is diminished without the use of intravenous contrast. LUNGS: Central airways are patent. Right upper lobe demonstrates a 1.2 cm pleural-based soft tissue density lesion with irregular borders on image 12 of series 3, increased fromreported 0.4 cm previously. Right upper lobe medial soft tissue density lesion current image 42measures 2.6 x 1.2 cm, previously 3.1 x 1.6 cm. Right upper lobe 0.4 cm nodule image 28 is unchanged. Right lower lobe 0.4 cm juxtapleural nodule image 39 is new fromprevious. Right lower lobe 0.7 cm nodule image 40 only faintly visualizedpreviously. Right lower lobe somewhat ground-glass appearing 0.9 cm nodule image 59 generally unchanged but only faintly visualized previously. Left upper lobe semi solid nodular density laterally image 30 measures 1.8x 0.8 cm. Generally similar on prior exams. Left upper lobe confluence interstitial densities along posterolateralpleural surface with peripheral increased density generally unchanged fromprevious measuring 2.8 by 1.5 cm. Adjacent juxtapleural left upper lobe 0.6 cmimage 22 is unchanged. PLEURA: No effusion. No pneumothorax. MEDIASTINUM/JERRI: Nonenlarged lymph nodes retrocaval pretracheal space, subcarinal space. Small hiatal hernia redemonstrated. HEART: Normal size. No significant pericardial effusion. CORONARY ARTERY CALCIFICATION: Present VASCULATURE: No thoracic aortic aneurysm. AXILLA: No adenopathy. CHEST WALL: No masses. No subcutaneous air. HARDWARE/LINES/TUBES: None. UPPER ABDOMEN: Left adrenal lesion with no uptake reported on priorPET-CT measures 2.7 cm and is generally unchanged suggesting benign process. MUSCULOSKELETAL: No significant abnormality. OTHER: No other significant abnormality. IMPRESSION: Right upper lobe pleural-based 1.2 cm soft tissue density lesion has increased in size from 0.4 cm to 1.2 cm. Right upper lobe medial soft tissue density lesion measures 2.6 x 1.2 cm, previously 3.1 x 1.6 cm. Other nodules as above. THIS IS AN ELECTRONICALLY VERIFIED FINAL REPORT 01/09/2025 5:26 AM - Electronically signed by Jules Modi M.D. RB: HELGA Report ID: [id number] Reading Location: [place] [address] Dontrell Caballero MD IMG CT PROCEDURES Final Result from Last 3 Months Insurance MEDICARE [facility] MEDICARE IDPA Care Teams Fish Packer Relationship Specialty Start Date End Date Ehsan Madrigal MD [address] [facility] [address] PCP - General Internal Medicine 08/10/24 Dontrell Caballero MD [address] [place] [address] Radiation Oncologist Radiation Oncology 08/30/24 Letty Jon, GUILLOTINE TRIMMER [id number] [place] [address] Nurse Practitioner 08/30/24
--- OUTSIDE RECORDS SUMMARY | 2025-01-10 07:42 | XMS_ITS | Clinical Summary ---
Author Organization [facility] Address [address] [place] [address] Care Team Providers Care Developmental Writing Instructor Name Role Phone Ehsan Madrigal MD Primary Care Provider [phone] Dontrell Caballero MD Unavailable [phone] Letty Jon NP Unavailable [phone] Allergies No known active allergies Medications ibuprofen [...] chest lung cancer screening on 06/30/2024 at [facility] which reveals: Suspected 4 mm nodule right [...] underwent a PET scan on 08/01/2024 at [facility] which reveals: 2.7 x 1.6 cm nodule in the right lung upper lobe with increased avidity, consistent with primary bronchogenic carcinoma. CT-guided biopsy is recommended. Pulmonary nodules measuring up to 7 mm, probably benign. Noncontrast low-dose CT chest is recommended in 6 months. Pathology from 08/11/2024 lung biopsy reveals adenocarcinoma. PFTs performed on 08/07/2024 at [facility] revealed an FEV 1 of 68% predicted [...] Type Department Care Team Description 01/09/2025 Telephone [facility] Medical Office Building 2 Radiation Oncology [address] [place] [address] Louisa Warren 01/04/2025 9:30 AM CDT Office Visit [facility] Medical Office Building 2 Radiation Oncology [address] [place] [address] Misti Diaz, PA Malignant neoplasm of upper lobe of right lung (HCC) (Primary Dx); Personal history of radiation therapy; Lung nodule 01/01/2025 2:23 PM CDT - 01/01/2025 11:59 PM CDT Hospital Encounter [facility] Medical Office Building [address] [place] [address] Adenocarcinoma (HCC) Discharge Disposition: Discharge to home or self care 11/23/2024 Telephone [facility] Medical Office Building 2 Radiation Oncology [address] [place] [address] Louisa Warren from Last 3 Months Surgical History Surgery Date Site/Laterality Comments SECTION 11/10/77, 08/25/79, 08/05/82 HYSTERECTOMY 10/11/1992 - 10/10/1993 around 30 years ago CARPAL TUNNEL RELEASE Bilateral 1990 had both wrist done in this year [...] cancer Mother all over cancer Other aunt Hobbs syndrome Sister 1 Gale heart condition Sister [...] on file Legal 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 Gender Identity Not on file Sexual Orientation Not on file Obstetrics History Last Filed Vital Signs Vital Sign Reading Time Taken Comments Blood Pressure 130/73 01/04/2025 8:45 AM CDT Pulse 97 01/04/2025 8:45 AM CDT Temperature 37.2 C (99 F) 08/28/2024 3:37 PM NEUROLOGY TEACHER Respiratory Rate 18 08/28/2024 3:37 PM NEUROLOGY TEACHER Oxygen Saturation 97% 01/04/2025 8:45 AM CDT Inhaled Oxygen Concentration - - Weight 91.2 kg (201 lb) 01/04/2025 8:45 AM CDT Height 157.5 cm (5' 2 ) 08/28/2024 3:37 PM NEUROLOGY TEACHER Body Mass Index 36.76 08/28/2024 3:37 PM NEUROLOGY TEACHER Plan of Treatment Health Maintenance Due Date [...] Jules Modi M.D. RB: HELGA Report ID: [id number] Reading Location: [id number] Procedure Note Jules Modi MD - 01/09/2025 [...] Jules Modi M.D. RB: HELGA Report ID: [id number] Reading Location: [id number] Dontrell Caballero MD IMG CT PROCEDURES Final Result from Last 3 Months Insurance MEDICARE [place] MEDIC[place] Care Teams Developmental Writing Instructor Relationship Specialty Start Date End Date Ehsan Madrigal MD [address] [facility] [place] [address] PCP - General Internal Medicine 08/10/24 Dontrell Caballero MD [address] [place] [address] Radiation Oncologist Radiation Oncology 08/30/24 Letty Jon, BELT SPLICER [id number] [place] [address] Nurse Practitioner 08/30/24
--- OUTSIDE RECORDS SUMMARY | 2025-01-10 07:42 | XMS_ITS ---
Author Organization [facility] Address [address] [place] [address] Care Team Providers Care Steel Layout Worker Name Role Phone Ehsan Madrigal Primary Care Provider REASON FOR VISIT Other Social History Sex Assigned At : Social History Observation Description Sex Assigned At Female Encounters Encounter Location Date Provider Diagnosis [address] [place] [address] 12/25/2024 Ehsan Madrigal Plan Of Treatment No Information Progress Notes * JOSE ELIASJudeOB:1960 (64 yo F)Acc No.[id number]:12/25/2024 Patient: Cheyenne DURAN :1960 A ge:64 Y S ex:Female Address:[address] [facility], [place], [address] * true * Date: Generated for Gilberti leti/Byrong/eTransmitting on: 0 01/10/2025 07:41 AM CDT
--- OUTSIDE RECORDS SUMMARY | 2025-01-10 07:42 | XMS_ITS | Patient Health Record ---
Author Organization [facility] Address [address] [place] [address] Care Team Providers Care Cut Out And Marking Machine Operator Name Role Phone Ehsan Madrigal Primary Care Provider Ct Zenia Unavailable [phone] Allergies No Known Allergies Results Component Value Reference Range Notes Electrocardiogram (EKG), IH Reviewed date:01/02/2025 10:16:23 AM Interpretation: Performing Lab: Notes/Report: Hemoglobin A1c* Reviewed date:12/28/2024 10:46:08 AM Interpretation: Performing Lab:[facility], [address] [facility], Phone - [phone], Director - Regla Notes/Report: Hemoglobin A1c 5.7 4.8-5.6 % . Prediabetes: 5.7 - 6.4 Diabetes: >6.4 Glycemic control for adults with diabetes: <7.0 CBC With Differential/Platel et* Reviewed date:12/28/2024 10:46:08 AM Interpretation: Performing Lab:[email or web address], [address] [facility], Phone - [phone], Director - [facility] Notes/Report: WBC 6.4 3.4-10.8 x10E3/uL RBC 4.49 [...] % Immature Grans (Abs) 0.0 0.0-0.1 x10E3/uL Lipid Panel* Reviewed date:12/28/2024 10:46:09 AM Interpretation: Performing Lab:[facility] [place], [address] [place] [address], Phone - [phone], [facility] - [facility] Notes/Report: Cholesterol, Total 247 100-199 mg/dL Triglycerides 174 0-149 mg/dL HDL Cholesterol 68 >39 mg/dL VLDL Cholesterol Arnel 31 5-40 mg/dL LDL Chol Calc (NIH) 148 0-99 mg/dL CMP 14 Comprehensive Metabol ic Panel* Reviewed date:12/28/2024 10:46:09 AM Interpretation: Performing Lab:[facility] [place], [address] [facility], Phone - [phone], [facility] - [facility] Notes/Report: Glucose 83 70-99 mg/dL BUN 15 [...] 0-40 IU/L ALT (SGPT) 22 0-32 IU/L TSH Rfx on Abnormal to Free T4 Reviewed date:12/28/2024 10:46:09 AM Interpretation: Performing Lab:[facility], [address] [facility], Phone - [phone], Director - [facility] Notes/Report: TSH 2.390 0.450-4.500 uIU/mL Chest X-ray PA and lateral Reviewed date:01/02/2025 10:13:19 AM Interpretation:Normal Performing Lab: Notes/Report: Normal Occult Blood, Fecal, IA ([id number]) Reviewed date:08/08/2024 11:34:07 AM Interpretation: Performing Lab:[facility], [address] [facility], Phone - [phone], Director - [facility] Notes/Report: Occult Blood, Fecal, IA Negative Negative Low Dose CT: Lung Cancer Scr eening [...] Antibody w /Rflx to Quantitative Real-time PCR ([id number]) Reviewed date:06/30/2024 09:37:35 AM Interpretation: Performing Lab: Notes/Report: Hepatitis B Surface Antigen (HBsAg Screen) Reviewed date:06/30/2024 09:37:36 AM Interpretation: Performing Lab: Notes/Report: HIV Screen *HIV 1, 2 Ab, p24 Ag ([id number]) Reviewed date:06/30/2024 09:37:35 AM Interpretation: Performing Lab: [...] date:06/30/2024 09:37:35 AM Interpretation: Performing Lab: Notes/Report: PET/CT Head to Mid-Thigh Reviewed date:08/02/2024 10:33:11 AM Interpretation: Performing Lab: Notes/Report: PFTS with DLCO Reviewed date:08/18/2024 09:39:30 AM Interpretation: Performing Lab: Notes/Report: CT Scan : Biopsy Lung Reviewed date:08/11/2024 04:04:53 PM Interpretation: Performing Lab: Notes/Report: Reason For Referral Reason PAINFUL CALLOUS RIGH T FOOT , ONYCHOMYCOSIS, BUNIONS Diagnosis 1 Callus of foot (L84) Referral Organization [facility] Referring Provider First Name Ehsan Referring Provider Last Name Kaitlin Referring Provider Speciality Internal M edicine Referred Provider [facility] Referred Provider Specialty Podiatry General Notes KATHLEEN Harris Stephanie N 06/15/2024 08:57:40 AM >referral faxed. Confirmation pending.Kimberly RN, Stephanie N 06/16/2024 02:43:17 PM >referral was successfully faxed. Message sent to pt via the patient portal (last log-in 7 days ago) notifying her of the referral. See messenger logs. Clinical Notes [facility], [facility] [address] , [place] [address], , Referral Priority Routine Reason ISOLATED RUL MASS, B X RESULTS PENDING, PREFERS [facility] Diagnosis 1 Lung mass (R91.8) Referral Organization [facility] Referring Provider First Name Ehsan Referring Provider Last Name Kaitlin Referring Provider Speciality Internal edicine Referred Provider Specialty Thoracic Espinoza jose david General Notes Zamzam Caballero 07/13 10:44:43 AM > Referral sent to [facility] Thoracic Surgery. Letter sent to patient., KATHLEEN Morrison, Maria D Chen 08/16/2024 07:43:12 AM >faxed with Biopsy results., KATHLEEN Morrison, Maria D Chen 08/16/2024 03:50:37 PM >Faxed to [facility] Thoracic Surgery Clinical Notes [facility] Thoracic Surgery, [address] [place] [address], , Referral Priority Urgent Reason ADENOCARCINOMA OF CHANO NG WITHOUT EVIDENCE OF METASTASES Diagnosis 1 Adenocarcinoma (C80. 1) Referral Organization [facility] Referring Provider First Name Ehsan Referring Provider Last Name Kaitlin Referring Provider Speciality Internal edicine Referred Provider Specialty Oncology General Notes KATHLEEN Morrison, Gayle Chen 08/22/2024 04:24:51 PM >Pt's son wants Mother to see Thoracic surgeon first and then make referral to Oncology if necessary. Referral Priority Routine Reason MENTALLY IMPAIRED AN D NO NEARBY FAMILY, ANXIETY, DEPRESSION, POSSIBLE BIPOLAR, NEEDS SUSPECT ARTIST SUPERVISOR Diagnosis 1 Mood disorder (F39) Referral Organization [facility] Referring Provider First Name Zenia Referring Provider Last Name Ct Referring Provider Speciality Behavioral Health Referred Provider Specialty Behavioral H ealth General Notes [email or web address], [email or web address] Clinical Notes Layton Duarte 09/22/2024 10:03:32 AM > Restaurant Shift Supervisor spoke with Cheyenne regarding current case management needs, client is struggling with getting groceries too her home as she is afraid to drive with current conditions, client has radiation appointments that she is struggling to get too, son is so far the only one able to jump in to help but son works making it hard on him to take off. Restaurant Shift Supervisor will work to identify options for client moving forward.Girish Kristina L 10/24/2024 10:05:33 AM >LESA called [employer]. HN spoke with Ana and she stated that their volunteer organization has grown and they are branching out to the [facility]. Ana explained that basically the client (with HN) needs to fill out the enrollment packet and submit it back to the organization to be entered into their computer system. Once the client is enrolled, she is able to see service including trips to and from the grocery store, dr candida, pharmacy etc. There are also small groups [...] to get the release signed. No answer, LESA left VM.Girish Kristina L 10/24/2024 10:36:39 AM >Cheyenne called HN back and informed her that she already filled the enrollment packet out, [employer] called Cheyenne and told her she was accepted to the program and that if she needs a ride to call 7 days in advance to set it up. Cheyenne was also informed by the HN the [facility] is having a informational meeting with [employer] on Nov 02 at 11:30. Cheyenne stated that [facility] was right across the street from her [...] RN, Mickie britton Marie 08/14/2024 09:27:34 AM SILVICULTURE FORESTER >Record of administration of FLUAD received from [facility] pharmacy. Social History Tobacco Use: Social History Observation Description Date Details (start date - stop date) Former Smoker NA - NA Sex Assigned At : Social History Observation Description Sex Assigned At Female Tobacco Control (Standard) Question Answer Notes Tobacco use: Former smoker Problems Problem Type SNOMED Code ICD Code Onset Dates Problem Status W/U Status Risk Notes Problem Mood disorder (46499543) Mood disorder (F39) Active confirmed Problem Cigarette smoker (03337343) Cigarette smoker (F17.210) Active confirmed Problem Adenocarcinoma (945934684) Adenocarcinoma (C80.1) 08/15/20 24 Active confirmed Vital Signs Heart Rate 107 /min 12/27/2024 Temperature 98.8 degrees Fahrenheit 08/04/2024 Respiratory Rate 16 /min 12/27/2024 Blood pressure diastolic 80 mm Hg 12/27/2024 Oximetry 97 % 12/27/2024 Height 63 in 12/27/2024 Blood pressure systolic 122 mm Hg 12/27/2024 Weight 200.0 lbs 12/27/2024 BMI 35.42 kg/m2 12/27/2024 Encounters Encounter Location Date Provider Diagnosis [facility] [address] [place] [address] 06/09/2024 Ehsan Madrigal Mood disorder F39 ; Callus of foot L84 ; Dizziness, nonspecific R42 ; Fatigue R53.83 ; Bunion M21.619 ; Exposure to potential infection Z20.9 ; Cigarette smoker F17.210 ; Metabolic syndrome E88.810 ; Substance use disorder F19.90 ; Colon cancer screening Z12.11 ; Immunization counseling Z71.89 and Breast cancer screening by mammogram Z12.[address] [place] [address] 07/10/2024 Ehsan Madrigal Lung nodules R91.8 ; Impaired glucose tolerance R73.02 and Encounter for immunization Z23 [address] [place] [place] [address] 08/04/2024 Ehsan Madrigal Lung mass R91.[address] [address] 12/27/2024 Ehsan Madrigal DOMINGO (dyspnea on exertion) R06.09 ; Edema of both feet R60.0 ; Adenocarcinoma C80.1 ; Fatigue R53.83 ; Nutritional counseling Z71.3 ; Screening for diabetes mellitus Z13.1 ; Lipid screening Z13.220 ; Former smoker Z87.891 and Abnormal EKG R94.[address] [address] 12/27/2024 Ehsan Madrigal Screening for diabetes mellitus Z13.1 ; DOMINGO (dyspnea on exertion) R06.09 ; Lipid screening Z13.220 ; Adenocarcinoma C80.1 and Fatigue R53.[address] [address] 06/29/2024 Ehsan Madrigal [address] [address] 07/05/2024 Ehsan Madrigal [address] [address] 07/06/2024 Zenia Fofana [address] [address] 07/17/2024 Ehsan Madrigal [address] [address] 08/15/2024 Ehsan Madirgal Adenocarcinoma C80.[address] [address] 08/17/2024 Ehsan Madrigal [address] [address] 08/23/2024 Ehsan Madrigal [address] [address] 12/25/2024 Ehsan Madrigal Assessments Encounter Date Diagnosis (ICD [...] AVOID SODA, FRUIT JUICE, BREADS, POTATO CHIPS, DIVEHI FRIES, FAST FOOD, BOXED FOODS, FROZEN DINNERS. [...] COVID-19 SHINGRIX (MAY GET THESE AT THE [facility], [facility], OR [facility]) 06/09/2024 Breast cancer screening by mammogram (ICD-10 - Z12.31) Plan Of Treatment Future Test Test Name Order Date Echo doppler exam 12/27/2024 Insurance Providers Payer Name Payer Address Payer Phone Subscriber Number Group Number Insured Name Patient Relationship to Insured Coverage Start Date Coverage End Date MEDICARE PART A [address] [place] [phone] [id number] Cheyenne Serrato Self - patient is the insured 4 Medical (General) History Surgical History Surgery Date(Month/Year) 3 hysterectomy, total with bilateral salpi wisdom-oophorectomy (BSO) carpal tunnel release eye surgery Hospitalization History Reason Date(Month/Year)
== END 2025-01-10 07:34 | disposition home or self-care (01) ==
PROVIDERS: PCP Internal Medicine; Visit Provider Internal Medicine
DX: R06.09 Other forms of dyspnea (principal); R60.0 Localized edema; R94.31 Abnormal electrocardiogram [ECG] [EKG]
CPT/HCPCS: 93306

== ENCOUNTER 2025-04-22 11:18 | Emergency (ER) | payer MEDICARE, MEDICAID, SELFPAY ==
--- NOTE | ~2025-04-22 | XR_ITS ---
Left Knee Technique: AP, lateral, and sunrise views were obtained. Clinical History: Status post fall Findings: No fracture or dislocation is seen. Osseous alignment is anatomic. There is mild to moderat e tricompartmental degenerative change. Soft tissues are unremarkable. No joint effusion is seen. Impression: Mild to moderate tricompartmental degenerative change. Reviewed, dictated and finalized at location . Impression: Mild to moderate tricompartmental degenerative change.
[2025-04-22 11:13] VITALS: BP 141/94; PULSE 126; RESP 12; TEMP 37.2; O2SAT 94
--- NOTE | 2025-04-22 11:23 | ECG_ITS ---
Test Date: 2025-04-22 11:27:17 Measurements Intervals Lyons Rate: 119 P: 71 ME: 163 QRS: -64 QRSD: 103 T: 60 QT: 326 QTc: 459 Interpretive Statements SINUS TACHYCARDIA POSSIBLE RIGHT VENTRICULAR CONDUCTION DELAY [RSR (QR) IN V1/V2] CANNOT RULE OUT INFERIOR MYOCARDIAL INFARCTION LEFT AXIS DEVIATION ABNORMAL ECG No previous ECG available for comparison Electronically Signed On 04-22-2025 11:43:26 CDT by Wil Dias M.D.
--- OUTSIDE RECORDS SUMMARY | 2025-04-22 11:46 | XMS_ITS | Patient Health Record ---
Author Organization [facility] Address [address] [place] [address] Care Team Providers Care Telegraph Installer Name Role Phone Madrigal Ehsan Primary Care Provider Ct Zenia Unavailable [phone] Allergies No Known Allergies Results Component Value Reference Range Notes CBC With Differential/Platel et* Reviewed date:06/30/2024 09:37:35 [...] date:06/30/2024 09:37:35 AM Interpretation: Performing Lab: Notes/Report: Chest X-ray PA and lateral Reviewed date:01/02/2025 10:13:19 AM Interpretation:Normal Performing Lab: Notes/Report: Normal Hemoglobin A1c* Reviewed date:12/28/2024 10:46:08 AM Interpretation: Performing Lab:[facility], [address] [facility], Phone - [phone], Director - PhDRicchifriedai Notes/Report: Hemoglobin A1c 5.7 4.8-5.6 % . Prediabetes: 5.7 - 6.4 Diabetes: >6.4 Glycemic control for adults with diabetes: <7.0 CBC With Differential/Platel et* Reviewed date:12/28/2024 10:46:08 AM Interpretation: Performing Lab:[facility], [address] [place] [address], Phone - [phone], Director - Regla Notes/Report: WBC 6.4 3.4-10.8 x10E3/uL RBC 4.49 [...] Panel* Reviewed date:12/28/2024 10:46:09 AM Interpretation: Performing Lab:[facility] [address], Phone - [phone], Director - Regla Notes/Report: Cholesterol, Total 247 100-199 mg/dL Triglycerides 174 0-149 mg/dL HDL Cholesterol 68 >39 mg/dL VLDL Cholesterol Arnel 31 5-40 mg/dL LDL Chol Calc ([facility]) 148 0-99 mg/dL CMP 14 Comprehensive Metabol ic Panel* Reviewed date:12/28/2024 10:46:09 AM Interpretation: Performing Lab:[facility], [address] [place] [address], Phone - [phone], Director - Regla Notes/Report: Glucose 83 70-99 mg/dL BUN 15 [...] T4 Reviewed date:12/28/2024 10:46:09 AM Interpretation: Performing Lab:[facility], [address] [facility], Phone - [phone], Director - Regla Notes/Report: TSH 2.390 0.450-4.500 uIU/mL Electrocardiogram (EKG), IH Reviewed date:01/02/2025 10:16:23 AM Interpretation: Performing Lab: Notes/Report: UA/M w/rflx [...] Antibody w /Rflx to Quantitative Real-time PCR (699996) Reviewed date:06/30/2024 09:37:35 AM Interpretation: Performing Lab: Notes/Report: Hepatitis B Surface Antigen (HBsAg Screen) Reviewed date:06/30/2024 09:37:36 AM Interpretation: Performing Lab: Notes/Report: HIV Screen *HIV 1, 2 Ab, p24 Ag ([id number]) Reviewed date:06/30/2024 09:37:35 AM Interpretation: Performing Lab: Notes/Report: CT Scan : Biopsy Lung Reviewed date:08/11/2024 04:04:53 PM Interpretation: Performing Lab: Notes/Report: PFTS with DLCO Reviewed date:08/18/2024 09:39:30 AM Interpretation: Performing Lab: Notes/Report: Low Dose CT: Lung Cancer Scr eening Reviewed date:08/02/2024 10:32:32 AM Interpretation: Performing Lab: Notes/Report: Comprehensive Drug Analysis, Urine Reviewed date:06/30/2024 09:37:35 AM Interpretation: Performing Lab: Notes/Report: QuantiFERON-TB Gold Plus ([id number] 5350) Reviewed date:06/30/2024 09:37:35 AM Interpretation: Performing Lab: Notes/Report: PET/CT Head to Mid-Thigh Reviewed date:08/02/2024 10:33:11 AM Interpretation: Performing Lab: Notes/Report: Occult Blood, Fecal, IA (182 619) Reviewed date:08/08/2024 11:34:07 AM Interpretation: Performing Lab:[facility] [place], [address] [facility], [place], Phone - [phone], Director - Regla Notes/Report: Occult Blood, Fecal, IA Negative Negative Reason For Referral Reason PAINFUL CALLOUS RIGH T FOOT , ONYCHOMYCOSIS, BUNIONS Diagnosis 1 Callus of foot (L84) Referral Organization [facility] Referring Provider First Name Ehsan Referring Provider Last Name Kaitlin Referring Provider Speciality Internal M edicine Referred Provider [facility] Referred Provider Specialty Podiatry General Notes KATHLEEN Harris Stephanie N 06/15/2024 08:57:40 AM >referral faxed. Confirmation pending.Kimberly RN, Stephanie N 06/16/2024 02:43:17 PM >referral was successfully faxed. Message sent to pt via the patient portal (last log-in 7 days ago) notifying her of the referral. See messenger logs. Clinical Notes [facility], [facility] [address] , [place] [address], , Referral Priority Routine Reason ISOLATED RUL MASS, B X RESULTS PENDING, PREFERS [facility] Diagnosis 1 Lung mass (R91.8) Referral Organization [facility] Referring Provider First Name Ehsan Referring Provider Last Name Kaitlin Referring Provider Speciality Internal edicine Referred Provider Specialty Thoracic Espinoza jose david General Notes Zamzam Caballero 07/13 10:44:43 AM > Referral sent to [facility]. Letter sent to patient., KATHLEEN Morrison, Maria D Chen 08/16/2024 07:43:12 AM >faxed with Biopsy results., KATHLEEN Morrison, Maria D Chen 08/16/2024 03:50:37 PM >Faxed to [facility] Thoracic Surgery Clinical Notes [facility] Surgery, [address] [place] [address], , Referral Priority Urgent Reason ADENOCARCINOMA OF CHANO NG WITHOUT EVIDENCE OF METASTASES Diagnosis 1 Adenocarcinoma (C80. 1) Referral Organization [facility] Referring Provider First Name Ehsan Referring Provider Last Name Kaitlin Referring Provider Speciality Internal edicine Referred Provider Specialty Oncology General Notes KATHLEEN Morrison, Gayle Chen 08/22/2024 04:24:51 PM >Pt's son wants Mother to see Thoracic surgeon first and then make referral to Oncology if necessary., Rosas AWNG, Julieta Colin 03/22/2025 12:30:23 PM > Pt documents show completed referral notes that were reviewed by Dr Madrigal Referral Priority Routine Reason MENTALLY IMPAIRED AN D NO NEARBY FAMILY, ANXIETY, DEPRESSION, POSSIBLE BIPOLAR, NEEDS SCIENTIFIC PROGRAMMER ANALYST Diagnosis 1 Mood disorder (F39) Referral Organization [facility] Referring Provider First Name Zenia Referring Provider Last Name Ct Referring Provider Speciality Behavioral Health Referred Provider Specialty Behavioral H ealth General Notes [email or web address], [email or web address]-[email or web address] Clinical Notes Haris DuarteKakayode Aldrich 09/22/2024 10:03:32 AM > Clinical Team Lead spoke with Cheyenne regarding current case management needs, client is struggling with getting groceries too her home as she is afraid to drive with current conditions, client has radiation appointments that she is struggling to get too, son is so far the only one able to jump in to help but son works making it hard on him to take off. Clinical Team Lead will work to identify options for client moving forward.Girish Kristina L 10/24/2024 10:05:33 AM >LESA called [employer]. HN spoke with Ana and she stated that their volunteer organization has grown and they are branching out to the [facility]. Ana explained that basically the client (with HN) needs to fill out the enrollment packet and submit it back to the organization to be entered into their computer system. Once the client is enrolled, she is able to see service including trips to and from the grocery store, dr tirado, pharmacy etc. There are also small groups [...] was also informed by the HN the [facility] is having a informational meeting with [employer] on Nov 02 at 11:30. Cheyenne stated that [facility] was right across the street from her house and she could walk there on the to attend. Client stated that at this time she had no other things she could think about that I could help provide. Client is currently set up with [employer] and knows how to utilize it. Referral can be closed. Referral Priority Routine Immunizations Vaccine Route Administration Date Status Comme nts FLUAD (influenza vaccine, adjuvanted, 65+) Unknown 07/10/2024 Administered Kimberly, RN, Mickie Salazar 08/14/2024 09:27:34 AM DRAW BENCH OPERATOR >Record of administration of FLUAD received from [facility] pharmacy. Social History Tobacco Use: Social History Observation Description Date Details (start date - stop date) Former Smoker NA - NA Sex Assigned At : Social History Observation Description Sex Assigned At Female Tobacco Control (Standard) Question Answer Notes Tobacco use: Former smoker Problems Problem Type SNOMED Code ICD Code Onset Dates Problem Status W/U Status Risk Notes Problem Mood disorder (31235016) Mood disorder (F39) Active confirmed Problem Cigarette smoker (02338387) Cigarette smoker (F17.210) Active confirmed Problem Adenocarcinoma (327531941) Adenocarcinoma (C80.1) 08/15/20 24 Active confirmed Vital Signs Heart Rate 107 /min 12/27/2024 Temperature 98.8 degrees Fahrenheit 08/04/2024 Respiratory Rate 16 /min 12/27/2024 Blood pressure diastolic 80 mm Hg 12/27/2024 Oximetry 97 % 12/27/2024 Height 63 in 12/27/2024 Blood pressure systolic 122 mm Hg 12/27/2024 Weight 200.0 lbs 12/27/2024 BMI 35.42 kg/m2 12/27/2024 Encounters Encounter Location Date Provider Diagnosis Formerly [facility] [address] [place] [address] [place] [address] 06/09/2024 Ehsan Madrigal Mood disorder F39 ; Callus of foot L84 ; Dizziness, nonspecific R42 ; Fatigue R53.83 ; Bunion M21.619 ; Exposure to potential infection Z20.9 ; Cigarette smoker F17.210 ; Metabolic syndrome E88.810 ; Substance use disorder F19.90 ; Colon cancer screening Z12.11 ; Immunization counseling Z71.89 and Breast cancer screening by mammogram Z12.[address] [place] [address] 07/10/2024 Ehsan Madrigal Lung nodules R91.8 ; Impaired glucose tolerance R73.02 and Encounter for immunization Z[address] [place] [address] 08/04/2024 Ehsan Madrigal Lung mass R91.[address] [address] 12/27/2024 Ehsan Madrigal DOMINGO (dyspnea on exertion) R06.09 ; Edema of both feet R60.0 ; Adenocarcinoma C80.1 ; Fatigue R53.83 ; Nutritional counseling Z71.3 ; Screening for diabetes mellitus Z13.1 ; Lipid screening Z13.220 ; Former smoker Z87.891 and Abnormal EKG R94.[address] [address] 12/27/2024 Ehsan Madrigal Screening for diabetes mellitus Z13.1 ; DOMINGO (dyspnea on exertion) R06.09 ; Lipid screening Z13.220 ; Adenocarcinoma C80.1 and Fatigue R53.[address] [address] 06/29/2024 Ehsan Madrigal [address] [address] 07/05/2024 Ehsan Madrigal [address] [address] 07/06/2024 Zenia Fofana [address] [address] 07/17/2024 Ehsan Madrigal [address] [address] 08/15/2024 Ehsan Madrigal Adenocarcinoma C80.[address] [address] 08/17/2024 Ehsan Madrigal [address] [address] 08/23/2024 Ehsan Madrigal [address] [address] 12/25/2024 Ehsan Madrigal Assessments Encounter Date Diagnosis (ICD Code) Assessment Notes Treatment Notes Treatment Clinical Notes Section Notes 12/27/2024 Screening for diabetes mellitus (ICD-10 - Z13.1) 12/27/2024 DOMINGO (dyspnea on exertion) (ICD-10 - R06.09) AVOID SUGAR, FLOUR, SALT. AVOID PROCESSED FOODS. AVOID SODA, FRUIT JUICE, BREADS, POTATO CHIPS, PERSIAN FRIES, FAST FOOD, BOXED FOODS, FROZEN DINNERS. [...] (ICD-10 - R60.0) DEPENDENT EDEMA VS CHF. 08/15/2024 Adenocarcinoma (ICD-10 - C80.1) 08/04/2024 Lung mass (ICD-10 - R91.8) 07/10/2024 Lung nodules (ICD-10 - R91.8) 07/10/2024 Impaired glucose tolerance (ICD-10 - R73.02) 06/09/2024 Mood disorder (ICD-10 - F39) CALL DAILY FOR PSYCHIATRY APPT 06/09/2024 Callus of foot (ICD-10 - L84) 12/27/2024 Adenocarcinoma (ICD-10 - C80.1) LUNG. S/P RT. 06/09/2024 Dizziness, nonspecific (ICD-10 - R42) 07/10/2024 Encounter for immunization (ICD-10 - Z23) Ordered per standing orders for administering influenza vaccine to adults. 12/27/2024 DOMINGO (dyspnea on exertion) (ICD-10 - R06.09) 12/27/2024 Lipid screening (ICD-10 - Z13.220) 12/27/2024 Fatigue (ICD-10 - R53.83) 06/09/2024 Fatigue (ICD-10 - R53.83) 06/09/2024 Bunion (ICD-10 - M21.619) 12/27/2024 Adenocarcinoma (ICD-10 - C80.1) 12/27/2024 Nutritional counseling (ICD-10 - Z71.3) 12/27/2024 Screening for diabetes mellitus (ICD-10 - Z13.1) 12/27/2024 Fatigue (ICD-10 - R53.83) 06/09/2024 Exposure to potential infection (ICD-10 - Z20.9) 06/09/2024 Cigarette smoker (ICD-10 - F17.210) CONSIDER NICOTINE GUM SOON AND CHANTIX AFTER PSYCHIATRIC EVALUATION AND TREATMENT. 12/27/2024 Lipid screening (ICD-10 - Z13.220) 12/27/2024 Former smoker (ICD-10 - Z87.891) 06/09/2024 Metabolic syndrome (ICD-10 - E88.810) 06/09/2024 Substance use disorder (ICD-10 - F19.90) CONTINUE TO ABSTAIN TO ALL DRUGS 12/27/2024 Abnormal EKG (ICD-10 - R94.31) INFEROPOSTERIOR Q-WAVES SUGGESTIVE OF OLD INFARCT. SINUS TACHYCARDIA. LAFB. 06/09/2024 Colon cancer screening (ICD-10 - Z12.11) 06/09/2024 Immunization counseling (ICD-10 - Z71.89) PREVNAR 20 RSV FLU COVID-19 SHINGRIX (MAY GET THESE AT THE [facility], [facility], OR [facility]) 06/09/2024 Breast cancer screening by mammogram (ICD-10 - Z12.31) Plan Of Treatment Future Test Test Name Order Date Echo doppler exam 12/27/2024 Insurance Providers Payer Name Payer Address Payer Phone Subscriber Number Group Number Insured Name Patient Relationship to Insured Coverage Start Date Coverage End Date MEDICARE PART A [address] [place] [phone] [id number] Cheyenne Serrato Self - patient is the insured 4 Medical (General) History Surgical History Surgery Date(Month/Year) 3 hysterectomy, total with bilateral salpi wisdom-oophorectomy (BSO) carpal tunnel release eye surgery Hospitalization History Reason Date(Month/Year)
--- OUTSIDE RECORDS SUMMARY | 2025-04-22 11:46 | XMS_ITS | Clinical Summary ---
Author Organization [facility] Address [facility] [place] [address] Care Team Providers Care Crew Person Name Role Phone Unavailable Primary Care Provider [...] 1 - Tdap) 1977 Mammogram Screening 1998 Pneumococcal Vaccine: 50+ Ye ars (1 of 1 - PCV) 2008 Zoster Vaccines (1 of 2) 2008 Dexa Scan (General) 2023 COVID-19 Vaccine ( - 2023-2 5 season) 2024 RSV Immunization or 60+ Years (1 [...]
--- OUTSIDE RECORDS SUMMARY | 2025-04-22 11:46 | XMS_ITS | Referral Summary ---
Author Organization [facility] Address [address] [place] [address] Care Team Providers Care College Coach Name Role Phone Ehsan Madrigal MD Primary Care Provider Dontrell Caballero MD Unavailable [phone] Letty Jon NP Unavailable Encounters Date Type Department Care Team Description 03/22/2025 Telephone [facility] 2 Radiation Oncology [address] [place] [address] Louisa Warren 02/09/2025 Completion of Therapy [facility] 2 Radiation Oncology [address] [place] [address] Dontrell Caballero MD 02/09/2025 OTV [facility] 2 Radiation Oncology [address] [place] [address] Dontrell Caballero MD Malignant neoplasm of upper lobe of right lung (HCC) (Primary Dx) 02/09/2025 Orders Only RAD ONC TREATMENTS Miscellaneous, Not In File 02/09/2025 9:30 AM CDT Treatment [facility] 2 Radiation Oncology [address] [place] [address] Dontrell Caballero MD 02/07/2025 Orders Only RAD ONC TREATMENTS Miscellaneous, Not In File 02/07/2025 9:30 AM CDT Treatment [facility] 2 Radiation Oncology [address] [place] [address] Dontrell Caballero MD 02/05/2025 Orders Only RAD ONC TREATMENTS Miscellaneous, Not In File 02/05/2025 10:15 AM CDT Treatment [facility] 2 Radiation Oncology [address] [place] [address] Dontrell Caballero MD 02/05/2025 10:30 AM CDT Treatment [facility] 2 Radiation Oncology [address] [place] [address] Dontrell Caballero MD 02/02/2025 7:20 PM CDT Treatment [facility] 2 Radiation Oncology [address] [place] [address] 01/25/2025 Social Work [facility] Oncology [address] [place] [address] [address] [place] [address] Mikki Munoz LCSW 01/24/2025 2:30 PM CDT Treatment [facility] 2 Radiation Oncology [address] [place] [address] Dontrell Caballero MD 01/24/2025 2:00 PM CDT Office Visit [facility] Office Building 2 Radiation Oncology [address] [place] [address] Dontrell Caballero MD Malignant neoplasm of upper lobe of right lung (HCC) (Primary Dx) from Last 3 Months Allergies No known active allergies Medications ibuprofen 200 mg tab/cap Take by mouth every 6 (six) hours as needed for pain Active loratadine (CLARITIN) 10 mg tablet Take 1 tablet (10 mg total) by mouth daily Active Active Problems Patient Care Coordination No [...] chest lung cancer screening on 06/30/2024 at [facility] which reveals: Suspected 4 [...] underwent a PET scan on 08/01/2024 at [facility] which reveals: 2.7 x 1.6 cm nodule in the right lung upper lobe with increased avidity, consistent with primary bronchogenic carcinoma. CT-guided biopsy is recommended. Pulmonary nodules measuring up to 7 mm, probably benign. Noncontrast low-dose CT chest is recommended in 6 months. Pathology from 08/11/2024 lung biopsy reveals adenocarcinoma. PFTs performed on 08/07/2024 at [facility] revealed an FEV 1 [...] on file Legal Sex Female 6:30 PM CATEGORY ANALYST Gender Identity Not on file Sexual Orientation Not on file Last Filed Vital Signs Vital Sign Reading Time Taken Comments Blood Pressure 165/97 02/09/2025 9:51 AM CDT Pulse 102 02/09/2025 9:51 AM CDT Temperature 37.2 C (99 F) 08/28/2024 3:37 PM CATEGORY ANALYST Respiratory Rate 18 08/28/2024 3:37 PM CATEGORY ANALYST Oxygen Saturation 100% 02/09/2025 9:51 AM CDT Inhaled Oxygen Concentration - - Weight 90.4 kg (199 lb 6.4 oz) 01/24/2025 1:58 P M CDT Height 157.5 cm (5' 2) 08/28/2024 3:37 PM CATEGORY ANALYST Body Mass Index 36.47 08/28/2024 3:37 PM CATEGORY ANALYST Plan of Treatment Not on file Procedures Procedure Name Priority Date/Time Associated Diagnosis Comments RAD ONC ARIA SESSION SUMMARY 02/09/2025 9:45 AM CDT RAD ONC ARIA SESSION SUMMARY 02/07/2025 9:52 AM CDT RAD ONC ARIA SESSION SUMMARY 02/05/2025 10:57 AM CDT RAD ONC ARIA COURSE SUMMARY 01/25/2025 12:02 PM CDT from Last 3 Months Results * RAD ONC ARIA SESSION SUMMARY (02/09/2025 9:45 AM CDT) Course Name C2_SBRT RUL_2024 ARIA Course Plan Date 01/31/2025 12:08 PM ARIA Elapsed Days 4 ARIA Treatment Start Date 02/05/2025 ARIA Treatment Site SBRT RT LUNG ARIA Dose Given To Date (cGy) 5,400 ARIA Session Dosage Given (cGy) 1,800 ARIA Plan ID SBRT RUL LUN ARIA Fractions Treated 2 ARIA Prescribed Dose Per Fraction (cGy) 1,800 ARIA Prescribed Total Dose (cGy) 3,600 ARIA 02/09/2025 9:45 AM CDT us Not In File Miscellaneous RADIATION ONCOLOGY ORD ERABLES Final Result ARIA * RAD ONC ARIA SESSION SUMMARY (02/07/2025 9:52 AM CDT) Course Name C2_SBRT RUL_2024 ARIA Course Plan Date 01/31/2025 12:08 PM ARIA Elapsed Days 2 ARIA Treatment Start Date 02/05/2025 ARIA Treatment Site SBRT RT LUNG ARIA Dose Given To Date (cGy) 3,600 ARIA Session Dosage Given (cGy) 1,800 ARIA Plan ID SBRT RUL LUN ARIA Fractions Treated 1 ARIA Prescribed Dose Per Fraction (cGy) 1,800 ARIA Prescribed Total Dose (cGy) 3,600 ARIA 02/07/2025 9:52 AM CDT us Not In File Miscellaneous RADIATION ONCOLOGY ORD ERABLES Final Result Performing Organization Address City/[facility] Co de Phone Number ARIA * RAD ONC ARIA SESSION SUMMARY (02/05/2025 10:57 AM CDT) Course Name C2_SBRT RUL_2024 ARIA Course Plan Date 01/31/2025 12:08 PM ARIA Elapsed Days 0 ARIA Treatment Start Date 02/05/2025 ARIA Treatment Site SBRT RT LUNG ARIA Dose Given To Date (cGy) 1,800 ARIA Session Dosage Given (cGy) 1,800 ARIA Plan ID SBRT RUL LUNG ARIA Fractions Treated 1 ARIA Prescribed Dose Per Fraction (cGy) 1,800 ARIA Prescribed Total Dose (cGy) 5,400 ARIA 02/05/2025 10:5 7 AM CDT us Not In File Miscellaneous RADIATION ONCOLOGY ORD ERABLES Final Result ARIA * RAD ONC ARIA COURSE SUMMARY (01/25/2025 12:02 PM CDT) Course Name C1_SBRT RUL_2023 ARIA Course Plan Date 09/20/2024 1:34 PM ARIA Elapsed Days 8 ARIA Treatment Start Date 09/25/2024 ARIA Treatment Site SBRT RUL LUNG ARIA Dose Given To Date (cGy) 5,500 ARIA Session Dosage Given (cGy) 0 ARIA Plan ID SBRT RUL LUNG ARIA Fractions Treated 5 ARIA Prescribed Dose Per Fraction (cGy) 1,100 ARIA Prescribed Total Dose (cGy) 5,500 ARIA 01/25/2025 12:0 2 PM CDT us Not In File Miscellaneous RADIATION ONCOLOGY ORD ERABLES Edited Result - Final ARIA from Last 3 Months Insurance MEDICARE [facility] MEDICARE IDPA Care Teams College Coach Relationship Specialty Start Date End Date Ehsan Madrigal MD [address] [place] [address] PCP - General Internal Medicine 08/10/24 Dontrell Caballero MD [address] [place] [id number] Radiation Oncologist Radiation Oncology 08/30/24 Letty Jon, PRODUCTION LINE OPERATOR [address] [place] [phone] Nurse Practitioner 08/30/24
--- OUTSIDE RECORDS SUMMARY | 2025-04-22 11:46 | XMS_ITS ---
Author Organization [facility] Address [address] [place] [address] Care Team Providers Care Prototype Assembler Electronics Name Role Phone Ehsan Madrigal MD Primary Care Provider [phone] Dontrell Caballero MD Unavailable [phone] Letty Jon NP Unavailable [phone] Active Problems Patient Care Coordination No te [...] chest lung cancer screening on 06/30/2024 at [facility] which reveals: Suspected 4 mm nodule right [...] underwent a PET scan on 08/01/2024 at [facility] which reveals: 2.7 x 1.6 cm nodule in the right lung upper lobe with increased avidity, consistent with primary bronchogenic carcinoma. CT-guided biopsy is recommended. Pulmonary nodules measuring up to 7 mm, probably benign. Noncontrast low-dose CT chest is recommended in 6 months. Pathology from 08/11/2024 lung biopsy reveals adenocarcinoma. PFTs performed on 08/07/2024 at [facility] revealed an FEV 1 of 68% predicted [...] Therapy Plans No past plan information found. Current Radiation Episodes * Radiation Oncology - Radiation Therapy - December 2024Overview* First Treatment Date Latest Treatment Date Treatment Site Technique Goal Episode Provider 02/05/2025 02/09/2025 Treatment Courses* Course C2_SBRT RUL_202402/05/2025 - 02/09/2025 Treatment Period Fraction Dose Fractions Total Dose Plans Planned SBRT RUL LUN 02/07/2025 - 02/09/2025 1,800 2 / 3,600 SBRT RUL LUNG 02/05/2025 - 02/05/2025 1,800 1 / 5,400 Reference Points Delivered SBRT RT LUNG 02/05/2025 - 02/09/2025 5,400 Radiation Treatments (No Episode) * Course C1_SBRT RUL_202309/25/2024 - 01/25/2025 Treatment Period Energy Fraction Dose Fractions Total Dose Plans Planned SBRT RUL LUNG 09/25/2024 - 01/25/2025 1,100 5 / 5,500 Reference Points Delivered SBRT RUL LUNG 09/25/2024 - 01/25/2025 5,500
--- OUTSIDE RECORDS SUMMARY | 2025-04-22 11:46 | XMS_ITS | Clinical Summary ---
Author Organization [facility] Address [address] [place] [address] Care Team Providers Care Textile Broker Name Role Phone Ehsan Madrigal MD Primary Care Provider [phone] Dontrell Caballero MD Unavailable Letty Jon NP Unavailable [phone] Allergies No known active allergies Medications ibuprofen [...] chest lung cancer screening on 06/30/2024 at [facility] which reveals: Suspected 4 mm nodule right [...] underwent a PET scan on 08/01/2024 at [facility] which reveals: 2.7 x 1.6 cm nodule in the right lung upper lobe with increased avidity, consistent with primary bronchogenic carcinoma. CT-guided biopsy is recommended. Pulmonary nodules measuring up to 7 mm, probably benign. Noncontrast low-dose CT chest is recommended in 6 months. Pathology from 08/11/2024 lung biopsy reveals adenocarcinoma. PFTs performed on 08/07/2024 at [facility] revealed an FEV 1 of 68% predicted [...] Type Department Care Team Description 03/22/2025 Telephone [facility] Building 2 Radiation Oncology [address] [place] [id number] Louisa Warren 02/09/2025 9:30 AM CDT Treatment [facility] 2 Radiation Oncology [address] [place] [address] [id number] Dontrell Caballero MD 02/09/2025 Completion of Therapy [facility] Building 2 Radiation Oncology [address] [place] [address] [id number] Dotnrell Caballero MD 02/09/2025 OTV [facility] Building 2 Radiation Oncology [address] [place] [address] [id number] Dontrell Caballero MD Malignant neoplasm of upper lobe of right lung (HCC) (Primary Dx) 02/09/2025 Orders Only RAD ONC TREATMENTS Miscellaneous, Not In File 02/07/2025 9:30 AM CDT Treatment [facility] 2 Radiation Oncology [address] [place] [address] [id number] Dontrell Caballero MD 02/07/2025 Orders Only RAD ONC TREATMENTS Miscellaneous, Not In File 02/05/2025 10:30 AM CDT Treatment [facility] Building 2 Radiation Oncology [address] [place] [id number] Dontrell Caballero MD 02/05/2025 10:15 AM CDT Treatment [facility] Building 2 Radiation Oncology [address] [place] [id number] Dontrell Caballero MD 02/05/2025 Orders Only RAD ONC TREATMENTS Miscellaneous, Not In File 02/02/2025 7:20 PM CDT Treatment [facility] Building 2 Radiation Oncology [address] [place] [id number] 01/25/2025 Social Work [facility] [address] [place] [address] [address] [place] [address] Mikki Munoz LCSW 01/24/2025 2:30 PM CDT Treatment [facility] Building 2 Radiation Oncology [address] [place] [address] [id number] Dontrell Caballero MD 01/24/2025 2:00 PM CDT Office Visit [facility] Building 2 Radiation Oncology [address] [place] [address] [id number] Dontrell Caballero MD Malignant neoplasm of upper lobe of right lung (HCC) (Primary Dx) from Last 3 Months Surgical History Surgery [...] cancer Mother all over cancer Other aunt Selena syndrome Sister 1 Gale heart condition Sister [...] on file Legal Sex Female 6:30 PM SHIFT SUPERVISOR RN Gender Identity Not on file Sexual Orientation Not on file Obstetrics History Last Filed Vital Signs Vital Sign Reading Time Taken Comments Blood Pressure 165/97 02/09/2025 9:51 AM CDT Pulse 102 02/09/2025 9:51 AM CDT Temperature 37.2 C (99 F) 08/28/2024 3:37 PM SHIFT SUPERVISOR RN Respiratory Rate 18 08/28/2024 3:37 PM SHIFT SUPERVISOR RN Oxygen Saturation 100% 02/09/2025 9:51 AM CDT Inhaled Oxygen Concentration - - Weight 90.4 kg (199 lb 6.4 oz) 01/24/2025 1:58 P M CDT Height 157.5 cm (5' 2) 08/28/2024 3:37 PM SHIFT SUPERVISOR RN Body Mass Index 36.47 08/28/2024 3:37 PM SHIFT SUPERVISOR RN Plan of Treatment Health Maintenance Due Date [...] 2023 Covid-19 Vaccine (5 - Pfizer risk 2023- season) 2025 07/10/2024, 08/14/2021, 11/11/2020, Additional history exists Influenza Vaccine (#1) 2025 07/10/2024 Fall Risk Assessment 09/14/2025 09/14/2024 Procedures Procedure Name Priority Date/Time Associated Diagnosis [...] ORD ERABLES Final Result Performing Organization Address City/[facility]/ZIP Co de Phone Number TOMMY * RAD ONC ARIA SESSION SUMMARY (02/05/2025 [...] ORD ERABLES Final Result Performing Organization Address [facility] de Phone Number TOMMY * RAD ONC ARIA COURSE SUMMARY (01/25/2025 [...] ONCOLOGY ORD ERABLES Edited Result - Final TOMMY from Last 3 Months Insurance MEDICARE IDSD MEDICARE IDPA Care Teams Textile Broker Relationship Specialty Start Date End Date Ehsan Madrigal MD [address] [facility] [place] [address] PCP - General Internal Medicine 08/10/24 Dontrell Caballero MD [address] [place] [id number] Radiation Oncologist Radiation Oncology 08/30/24 Letty Jon NP [address] [place] [address] [phone] Nurse Practitioner 08/30/24
--- NOTE | 2025-04-22 12:05 | ED.GENADULT ---
HPI - General Adult General Chief complaint: Fall Stated complaint: ground level fall Time Seen by Provider: 04/22/25 11:29 History of Present Illness HPI narrative: Patient is emotionally distraught and intermittently crying throughout the interview. Is unclear exactly why. She says that she is just nervous. This is a 64-year-old female presenting to the ED after a ground level fall. She was walking with her walker when she tripped falling landing on her left knee. She has an abrasion to her left knee. She has been able to ambulate on it. She is able to lift off the bed without issue. No weakness or loss of sensation. She did not strike her head. She is not on blood thinners. Related Data Home Medications ?Medication ?Instructions ?Recorded ?Confirmed ?Last Taken ?Type ibuprofen 200 mg tablet 400 mg PO Q6H PRN mild pain or 08/11/24 08/11/24 Unknown History headache Allergies Allergy/AdvReac Type Severity Reaction Status Date / Time No Known Allergies Allergy Verified 04/22/25 11:28 PENDING SALE TO [facility] Past Medical History Medical History (Updated 04/22/25 @ 12:28 by Rj Domingo MD) COPD (chronic obstructive pulmonary disease) reports she has previously been told this diagnosis Tobacco abuse Surgical History Surgical History S/p bilateral carpal tunnel release H/O: hysterectomy Previous section x3 History of strabismus surgery Social History Social History Smoking packs per day: 2 Smoking cigarettes per day: 40.0 Years smoked: 54 Smoking pack-years: 108.00 Smoking status: Former smoker Tobacco type: cigarettes Alcohol intake: never Substance use: never Substance use type: does not use Do You Feel Safe in your Home?: Yes Lack of Transportation: No Lack of Food: Never True Current Housing: I Have Housing Concerned About Future Housing: No Difficulty Paying Gas/Electric Bills: No Difficulty Paying for Meds: No Currently Unemployed: No Education: Grade School Difficulty w/ Childcare or Family Care: No Gender identity (if verbalized by the patient): Female Spiritual care concerns: No Exam Narrative: APPEARANCE: Patient is intermittently crying thoughout the interview for unknown reasons. Head: atraumatic. EYES: EOMI, NOSE: Atraumatic NECK: Trachea midline RESPIRATORY: No increased rate of breathing CARDIOVASCULAR: RRR, ABDOMINAL: Non-distended MUSCULOSKELETAl: Focal exam of the left knee revealed a minor abrasion without significant swelling or bruising. Pulses are intact. Extension flexion the near intact. NEURO: Alert. Moving 4/4 extremities SKIN:: Warm, dry. Normal color PSYCHIATRIC: Normal affect Course Vital Signs Vital signs: Vital Signs Temperature 98.9 F 04/22/25 11:13 Pulse Rate 126 H 04/22/25 11:13 Respiratory Rate 04/22/25 11:13 Blood Pressure 141/94 H 04/22/25 11:13 Pulse Oximetry 94 04/22/25 11:13 Oxygen Delivery Room Air 04/22/25 11:13 Temperature 98.9 F 04/22/25 11:13 Pulse Rate 126 H 04/22/25 11:13 Respiratory Rate 12 04/22/25 11:13 Blood Pressure 141/94 H 04/22/25 11:13 Pulse Oximetry 94 04/22/25 11:13 Oxygen Delivery Room Air 04/22/25 11:13 Medical Decision Making MDM Narrative Medical decision making narrative: -Course: 64-year-old female presenting for medical fall with left knee pain. X-rays negative for fracture but showed arthritis. Patient is able ambulate and bear weight. She will be discharged with Tylenol. Patient was tachycardic however she is very emotionally distraught although she cannot exactly tell me why other than she feels nervous. No SI HI. Given return precautions if she develops any new or worsening symptoms. -DDX includes but is not limited to: Bony injury, soft tissue injury, internal derangement Vital Signs Vital Signs: Vital Signs Temperature 98.9 F 04/22/25 11:13 Pulse Rate 126 H 04/22/25 11:13 Respiratory Rate 04/22/25 11:13 Blood Pressure 141/94 H 04/22/25 11:13 Pulse Oximetry 94 04/22/25 11:13 Oxygen Delivery Room Air 04/22/25 11:13 Temperature 98.9 F 04/22/25 11:13 Pulse Rate 126 H 04/22/25 11:13 Respiratory Rate 12 04/22/25 11:13 Blood Pressure 141/94 H 04/22/25 11:13 Pulse Oximetry 94 04/22/25 11:13 Oxygen Delivery Room Air 04/22/25 11:13 Discharge Plan Discharge Clinical Impression: Acute knee pain Patient Disposition: Home Condition: Stable Instructions: Antibiotic Form, Knee Pain (ED) Additional Instructions: You were seen after a fall. Your x-ray did not show any broken bones. You do have arthritis. Please take Tylenol for pain follow-up with your primary care physician. Return if you develop severe pain or inability to walk. Patient Language: Bulgarian Prescriptions: No Action ibuprofen 200 mg Tablet 400 mg PO Q6H PRN (Reason: mild pain or headache) nicotine (polacrilex) 4 mg Gum 4 mg PO PRN PRN (Reason: Nicotine Cravings) Qty: 50 0RF Follow-up/Referrals: Ehsan Madrigal MD [Primary Care Provider] -
[2025-04-22] MEDS: ACETAMINOPHEN 500 MG TABLET 1000 MG PO (12:38)
[2025-04-22 12:45] VITALS: BP 130/79; PULSE 117; RESP 17; TEMP 36.8; O2SAT 95
== END 2025-04-22 12:47 | disposition home or self-care (01) ==
PROVIDERS: Emergency Provider Emergency Medicine; PCP Internal Medicine
DX: S80.212A Abrasion, left knee, initial encounter (principal); J44.9 Chronic obstructive pulmonary disease, unspecified; Z90.710 Acquired absence of both cervix and uterus; Z87.891 Personal history of nicotine dependence; R94.31 Abnormal electrocardiogram [ECG] [EKG]; R00.0 Tachycardia, unspecified; W01.0XXA Fall on same level from slipping, tripping and stumbling without subsequent striking against object, initial encounter
CPT/HCPCS: 73562; 93005; 99283; A9270